=== PATIENT | female | born 1930 | race Caucasian/White ===

== ENCOUNTER 2017-01-08 20:51 | Inpatient (IN) | payer MEDICARE ==
--- NOTE | 2017-01-08 20:55 | C.PDOC ---
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 Denies fever or chills. Time Seen by Provider: 01/08/17 20:55 History Per: Patient History/Exam Limitations: no limitations Onset/Duration Of Symptoms: Mins Current Symptoms Are (Timing): Still Present Context: Other Severity: Moderate Pain Scale Rating Of: 4 Location Of Pain/Discomfort: Diffuse Radiation Of Pain To:: None Quality Of Discomfort: Dull Associated Symptoms: Vomiting (Coffee ground). denies: Fever, Chills Exacerbating Factors: None Alleviating Factors: None Recent travel outside of the [place]: No Additional History Per: Patient Abnormal Vaginal Bleeding: No Past Medical History Reviewed: Historical Data, Nursing Documentation, Vital Signs Vital Signs: Last Vital Signs Temp 97.1 F L 01/08/17 23:10 Pulse 100 H 01/08/17 23:10 Resp 20 01/08/17 23:10 BP 130/55 L 01/08/17 23:10 Pulse Ox 96 01/08/17 23:10 - Medical History PMH: Anxiety, Arthritis, CAD, Cardia Arrhythmia, Diabetes, HTN, Hypercholesterolemia, Osteoporosis Surgical History: - [facility] Procedures COLONOSCOPY (12/31/12) LEFT HEART CARDIAC CATH (08/31/13) LT HEART ANGIOCARDIOGRAM (08/31/13) Family History: States: Unknown Family Hx - Social History Hx Tobacco Use: No Hx Alcohol Use: No Hx Substance Use: No - Immunization History Hx Tetanus Toxoid Vaccination: No Hx Influenza Vaccination: No Hx Pneumococcal Vaccination: No Review Of Systems Constitutional: Negative for: Fever, Chills Eyes: Negative for: Vision Change ENT: Negative for: Throat Pain Cardiovascular: Negative for: Chest Pain Respiratory: Negative for: Shortness of Breath Gastrointestinal: Positive for: Vomiting (Coffee ground), Abdominal Pain Genitourinary: Negative for: Vaginal Bleeding Musculoskeletal: Negative for: Back Pain Skin: Positive for: Other (pale). Negative for: Rash, Lesions, Jaundice, Bruising Neurological: Negative for: Weakness Psych: Negative for: Anxiety Physical Exam - Physical Exam Appears: Non-toxic, No Acute Distress Skin: Warm, Dry, Pale Head: Normacephalic Eye(s): bilateral: Normal Inspection Oral Mucosa: Moist Neck: Trachea Midline, Supple Chest: Symmetrical, No Tenderness Cardiovascular: Rhythm Regular, No Murmur Respiratory: No Rales, No Rhonchi, No Wheezing Gastrointestinal/Abdominal: Soft, Tenderness (Mild, diffusely), No Guarding, No Rebound Rectal: Heme Positive, Other (black stool) Back: No CVA Tenderness Extremity: No Tenderness Extremity: Bilateral: Atraumatic, Normal Color And Temperature Neurological/Psych: Oriented x3, Normal Speech, Normal Cognition Gait: Steady ED Course And Treatment - Laboratory Results Result Diagrams: 01/08/17 21:17 01/08/17 21:17 ECG: Interpreted By Me, Viewed By Me ECG Rhythm: Sinus Rhythm (97), Nonspecific Changes O2 Sat by Pulse Oximetry: 98 Pulse Ox Interpretation: Normal Progress Note: EKG, blood work, and urinalysis ordered. Zofran, protonix, and IV fluids administered. Disposition Discussed With Dr.: Jeffery Jin Comment: accepted the pt on his service and took over the care at 11:12 PM Doctor Will See Patient In The: Hospital Counseled Patient/Family Regarding: Studies Performed, Diagnosis - Disposition Disposition: HOSPITALIZED Disposition Time: 20:55 Condition: FAIR - POA Present On Arrival: Poor Glycemic Control - Clinical Impression Clinical Impression: Abdominal pain, Hyperglycemia, Gastritis, Hematemesis - Scribe Statement The provider has reviewed the documentation as recorded by the Scribe Ray Russell All medical record entries made by the Scribe were at my direction and personally dictated by me. I have reviewed the chart and agree that the record accurately reflects my personal performance of the history, physical exam, medical decision making, and the department course for this patient. I have also personally directed, reviewed, and agree with the discharge instructions and disposition. Decision To Admit - Pt Status Changed To: Hospital Disposition Of: Observation - . Bed Request Type: Regular Admitting Physician: Jeffery Jin Patient Diagnosis: Abdominal pain, Hyperglycemia, Gastritis, Hematemesis
[2017-01-08 20:58] VITALS: BMI 26.0
[2017-01-08] MEDS ORDERED: Sodium Chloride 0.9% 1,000 ML IV ONE (20:58)
[2017-01-08] MEDS ORDERED: Sodium Chloride 0.9% 1,000 ML ONE (21:03)
[2017-01-08 21:24] LABS: BASO # 0.1 K/uL (0.0-0.2); EOS # 0.1 K/uL (0.0-0.7); EOS % 0.6 % (0.0-4.0); HEMOGLOBIN 9.3 g/dL (11.0-16.0); LYMPH # 1.2 K/uL (1.0-4.3); LYMPH % 9.1 % (20.0-40.0); MEAN CELL VOLUME 87.6 fL (81.0-99.0); MEAN CORPUSCULAR HEMOGLOBIN 28.5 pg (27.0-31.0); MEAN CORPUSCULAR HGB CONC 32.5 g/dL (33.0-37.0); MEAN PLATELET VOLUME 11.6 fL (7.2-11.7); MONO # 0.4 K/uL (0.0-0.8); MONO % 3.2 % (0.0-10.0); NEUT # 11.8 K/uL (1.8-7.0); NEUT % 86.1 % (50.0-75.0); PLATELET COUNT 175 K/uL (130-400); RBC 3.26 Mil/uL (3.80-5.20); RED CELL DISTRIBUTION WIDTH 13.2 % (11.5-14.5); WHITE BLOOD COUNT 13.7 K/uL (4.8-10.8)
[2017-01-08 21:31] LABS: ALBUMIN 3.2 g/dL (3.5-5.0)
[2017-01-08 21:34] LABS: ALB/GLOB RATIO 1.1 (1.0-2.1); AST/SGOT 15 U/L (14-36); GFR AFRICAN-AMERICAN > 60; GFR NON-AFRICAN AMERICAN 60
[2017-01-08 21:35] LABS: ALT/SGPT 14 U/L (9-52); BLOOD UREA NITROGEN 72 mg/dL (7-17); CALCIUM 9.4 mg/dl (8.6-10.4); INR 1.2; LIPASE 234 U/L (23-300); PROTHROMBIN TIME 12.9 SECONDS (9.7-12.2)
[2017-01-08 22:18] LABS: BANDS 1 % (0-2); LYMPHOCYTE 9 % (20-40); MONOCYTE 2 % (0-10); NEUTROPHIL 88 % (50-75); PLATELET ESTIMATE NORMAL (NORMAL); TOTAL CELLS COUNTED 100
[2017-01-08 22:29] LABS: SQUAMOUS EPITHIAL < 1 /hpf (0-5); URINE BILIRUBIN NEGATIVE (NEGATIVE); URINE CLARITY Clear (Clear); URINE COLOR Straw (YELLOW); URINE GLUCOSE (UA) 2+ mg/dL (Normal); URINE LEUKOCYTE ESTERASE NEG Leu/uL (Negative); URINE NITRATE NEGATIVE (NEGATIVE); URINE PROTEIN NEGATIVE (NEGATIVE); URINE UROBILINOGEN NORMAL mg/dL (0.2-1.0)
[2017-01-08 22:31] LABS: URINE BLOOD NEGATIVE (NEGATIVE)
[2017-01-09] MEDS: Sodium Chloride 0.45% 1,000 ML IV SCH (02:00)
[2017-01-09 04:38] LABS: MEAN CELL VOLUME 89.1 fL (81.0-99.0); MEAN CORPUSCULAR HEMOGLOBIN 28.3 pg (27.0-31.0); MEAN CORPUSCULAR HGB CONC 31.7 g/dL (33.0-37.0); RBC 2.5 Mil/uL (3.80-5.20); RED CELL DISTRIBUTION WIDTH 13.2 % (11.5-14.5); WHITE BLOOD COUNT 14.9 K/uL (4.8-10.8)
[2017-01-09 04:39] LABS: HEMOGLOBIN 7.1 g/dL (11.0-16.0)
[2017-01-09 04:41] LABS: ALBUMIN 2.7 g/dL (3.5-5.0)
[2017-01-09 04:43] LABS: GFR AFRICAN-AMERICAN > 60; GFR NON-AFRICAN AMERICAN 53
[2017-01-09 04:44] LABS: ALT/SGPT 21 U/L (9-52); AST/SGOT 13 U/L (14-36); BLOOD UREA NITROGEN 68 mg/dL (7-17)
[2017-01-09 04:45] LABS: CALCIUM 8.3 mg/dl (8.6-10.4)
[2017-01-09 04:46] LABS: ALB/GLOB RATIO 1.1 (1.0-2.1)
[2017-01-09] MEDS: (Novolin R) Insulin Human Regular 100 units/ml vial SC SCH ×4 (08:33→22:45)
[2017-01-09] MEDS ORDERED: (Novolin R) Insulin Human Regular 100 units/ml vial ONE (08:36)
[2017-01-09] MEDS ORDERED: HYDROCHLOROTHIAZID PO SCH (10:00)
[2017-01-09] MEDS ORDERED: TELMISARTAN PO SCH (10:00)
--- NOTE | 2017-01-09 15:10 | US ---
HISTORY: GI BLEED COMPARISON: CT abdomen and pelvis with contrast performed 05/13/16 TECHNIQUE: Sonographic evaluation of the right upper quadrant of the abdomen. FINDINGS: LIVER: Measures 13 cm in length and appears within normal limits of shape, size, and echotexture. No focal hepatic mass identified. The main portal vein appears patent with normal directional flow. No intrahepatic bile duct dilatation. GALLBLADDER: No gallstones. No gallbladder wall thickening or pericholecystic edema. Negative sonographic Dave's sign as assessed by the electronic wirer. COMMON BILE DUCT: Measures 4 mm. PANCREAS: Not well-visualized. RIGHT KIDNEY: Measures 8.7 x 4.1 x 4.2 cm in length. No obstructing calculus or hydronephrosis identified. AORTA: Limited visualization appears grossly unremarkable. IVC: Limited visualization appears grossly unremarkable. OTHER FINDINGS: None . IMPRESSION: Unremarkable right upper quadrant ultrasound as above.
--- NOTE | 2017-01-09 15:33 | RAD ---
PROCEDURE: Radiographs of the chest and abdomen (obstructive series) HISTORY: GI Bleed COMPARISON: No prior. TECHNIQUE: AP radiograph of the chest, with upright and supine radiographs of the abdomen. FINDINGS: CHEST: Lungs: Clear. Cardiovascular: Normal size heart. No pulmonary vascular congestion. Pleura: No pleural fluid. No pneumothorax. Other findings: None. ABDOMEN AND PELVIS: Bowel: Unremarkable bowel gas pattern. No evidence of mechanical obstruction. Free air: None. Bones: Unremarkable. Other findings: None. IMPRESSION: Unremarkable radiographs of chest and abdomen. No evidence of mechanical bowel obstruction.
--- NOTE | 2017-01-09 16:19 | CP.PCM.CON ---
History of Present Illness - History of Present Illness History of Present Illness: This is an 86 year old woman with coffee grounds emesis. Patient underwent colonoscopy 12/31/2012 which showed diverticulosis. She was in her usual state of health until the day of admission, when she noted sudden onset of nausea and vomiting. At the time, she had diffuse abdominal discomfort described as dullness; this has since resolved. She denies having heartburn, difficulty swallowing, loss of appetite, constipation, diarrhea, dark stools and bright red blood per rectum. She has gradually lost 30 pounds over the past two years. Review of Systems - Review of Systems All systems: reviewed and no additional remarkable complaints except - Constitutional Constitutional: absent: Chills, Fever - EENT Eyes: absent: Change in Vision Nose/Mouth/Throat: absent: Sore Throat - Cardiovascular Cardiovascular: absent: Chest Pain - Respiratory Respiratory: absent: Dyspnea - Gastrointestinal Gastrointestinal: Abdominal Pain. absent: Constipation, Diarrhea, Dysphagia, Heartburn, Hematochezia, Melena, Nausea, Vomiting - Reproductive: Female Reproductive:Female: absent: Abnormal Vaginal Bleeding - Musculoskeletal Musculoskeletal: absent: Back Pain Past Patient History - Infectious Disease Hx of Infectious Diseases: None - Past Medical History & Family History Past Medical History?: Yes - Past Social History Smoking Status: Never Smoked - CARDIAC Hx Cardia Arrhythmia: Yes Hx Hypercholesterolemia: Yes Hx Hypertension: Yes - PULMONARY Hx Respiratory Disorders: No - NEUROLOGICAL Hx Neurological Disorder: No - HEENT Hx HEENT Problems: No - RENAL Hx Chronic Kidney Disease: No - ENDOCRINE/METABOLIC Hx Endocrine Disorders: Yes Hx Diabetes Mellitus Type 1: Yes - HEMATOLOGICAL/ONCOLOGICAL Hx Blood Disorders: No - INTEGUMENTARY Hx Dermatological Problems: No - MUSCULOSKELETAL/RHEUMATOLOGICAL Hx Arthritis: Yes Hx Osteoporosis: Yes - GASTROINTESTINAL Hx Gastrointestinal Disorders: No - GENITOURINARY/GYNECOLOGICAL Hx Genitourinary Disorders: No - PSYCHIATRIC Hx Anxiety: Yes Hx Substance Use: No - SURGICAL HISTORY Hx Section: Yes Hx Orthopedic Surgery: Yes Other/Comment: Right ankle surgery. left shoulder surgery - ANESTHESIA Hx Anesthesia: Yes Hx Anesthesia Reactions: No Hx Malignant Hyperthermia: No Meds Allergies/Adverse Reactions: Allergies Allergy/AdvReac Type Severity Reaction Status Date / Time No Known Allergies Allergy Verified 01/08/17 20:57 - Medications Medications: Current Medications Carvedilol (Coreg) 6.25 mg PO BID [facility] Last Admin: 01/09/17 12:12 Dose: 6.25 mg Clopidogrel Bisulfate (Plavix) 1 mg PO DAILY [facility] Last Admin: 01/09/17 12:13 Dose: 1 mg Home Med (Telmisartan/Hydrochlorothiazid [Telmisartan-Hctz 80-25 Mg Tab]) 1 tab PO DAILY [facility] Sodium Chloride (Sodium Chloride 0.45%) 1,000 mls @ 75 mls/hr IV .[id number] [facility] Last Admin: 01/09/17 02:00 Dose: 75 mls/hr Acetaminophen (Ofirmev) 100 mls @ 100 mls/hr IV PRN PRN PRN Reason: Pain, moderate (4-7) Stop: 01/10/17 01:23 Last Admin: 01/09/17 02:14 Dose: 100 mls/hr Insulin Human Regular (Novolin R) 0 unit SC ACHS [facility] PRN Reason: Protocol Last Admin: 01/09/17 08:33 Dose: 6 unit Pantoprazole Sodium (Protonix Inj) 40 mg IVP DAILY [facility] Last Admin: 01/09/17 12:12 Dose: 40 mg Sitagliptin Phosphate (Januvia) 100 mg PO DAILY [facility] Last Admin: 01/09/17 12:12 Dose: 100 mg Physical Exam - Constitutional Appears: No Acute Distress - Head Exam Head Exam: ATRAUMATIC, NORMOCEPHALIC - Eye Exam Eye Exam: EOMI, PERRL - Neck Exam Neck exam: Negative for: Lymphadenopathy, Thyromegaly - Respiratory Exam Respiratory Exam: NORMAL BREATHING PATTERN. absent: Rales, Rhonchi, Wheezes - Cardiovascular Exam Cardiovascular Exam: REGULAR RHYTHM, +S1, +S2. absent: Gallop, Rubs, Systolic Murmur - GI/Abdominal Exam GI & Abdominal Exam: Normal Bowel Sounds, Soft. absent: Mass, Organomegaly, Tenderness - Rectal Exam Rectal Exam: Deferred - Extremities Exam Extremities exam: Negative for: calf tenderness, pedal edema Results - Vital Signs Recent Vital Signs: Last Vital Signs Temp 98.7 F 01/09/17 08:45 Pulse 102 H 01/09/17 08:45 Resp 18 01/09/17 08:45 BP 137/43 L 01/09/17 08:45 Pulse Ox 100 01/09/17 08:45 - Labs Result Diagrams: 01/09/17 04:35 01/09/17 04:35 Labs: Laboratory Results - last 24 hr 01/09/17 01/09/17 01/09/17 04:35 04:35 06:20 WBC 14.9 H RBC 2.50 L Hgb 7.1 L D Hct 22.3 L MCV 89.1 MCH 28.3 MCHC 31.7 L RDW 13.2 Plt Count 154 MPV 11.0 Sodium 137 Potassium 4.1 Chloride 107 Carbon Dioxide 21 L Anion Gap 13 BUN 68 H Creatinine 1.0 Est GFR ( Amer) > 60 Est GFR (Non-Af Amer) 53 POC Glucose (mg/dL) Random Glucose 241 H Calcium 8.3 L Total Bilirubin 0.3 AST 13 L ALT 21 Alkaline Phosphatase 59 Total Protein 5.1 L Albumin 2.7 L Globulin 2.4 Albumin/Globulin Ratio 1.1 Blood Type O POSITIVE Antibody Screen Negative 01/09/17 01/09/17 08:32 12:11 WBC RBC Hgb Hct MCV MCH MCHC RDW Plt Count MPV Sodium Potassium Chloride Carbon Dioxide Anion Gap BUN Creatinine Est GFR ( Amer) Est GFR (Non-Af Amer) POC Glucose (mg/dL) 301 H 154 H Random Glucose Calcium Total Bilirubin AST ALT Alkaline Phosphatase Total Protein Albumin Globulin Albumin/Globulin Ratio Blood Type Antibody Screen Assessment & Plan (1) Hematemesis Assessment and Plan: Patient has upper GI bleed manifesting as coffee-grounds emesis. She is hemodynamically stable. The HGB dropped from 9.3 to 7.1, and she was transfused. Since she has been taking Advil, we will perform EGD to rule out peptic ulcer disease. Status: Acute
--- NOTE | 2017-01-09 19:43 | CP.PCM.HP ---
Past Patient History - Infectious Disease Hx of Infectious Diseases: None - Past Medical History & Family History Past Medical History?: Yes - Past Social History Smoking Status: Never Smoked - CARDIAC Hx Cardia Arrhythmia: Yes Hx Hypercholesterolemia: Yes Hx Hypertension: Yes - PULMONARY Hx Respiratory Disorders: No - NEUROLOGICAL Hx Neurological Disorder: No - HEENT Hx HEENT Problems: No - RENAL Hx Chronic Kidney Disease: No - ENDOCRINE/METABOLIC Hx Endocrine Disorders: Yes Hx Diabetes Mellitus Type 1: Yes - HEMATOLOGICAL/ONCOLOGICAL Hx Blood Disorders: No - INTEGUMENTARY Hx Dermatological Problems: No - MUSCULOSKELETAL/RHEUMATOLOGICAL Hx Arthritis: Yes Hx Osteoporosis: Yes - GASTROINTESTINAL Hx Gastrointestinal Disorders: No - GENITOURINARY/GYNECOLOGICAL Hx Genitourinary Disorders: No - PSYCHIATRIC Hx Anxiety: Yes Hx Substance Use: No - SURGICAL HISTORY Hx Section: Yes Hx Orthopedic Surgery: Yes Other/Comment: Right ankle surgery. left shoulder surgery - ANESTHESIA Hx Anesthesia: Yes Hx Anesthesia Reactions: No Hx Malignant Hyperthermia: No Meds Allergies/Adverse Reactions: Allergies Allergy/AdvReac Type Severity Reaction Status Date / Time No Known Allergies Allergy Verified 01/08/17 20:57 Results - Vital Signs Recent Vital Signs: Last Vital Signs Temp 97.6 F 01/09/17 15:39 Pulse 100 H 01/09/17 15:39 Resp 20 01/09/17 15:39 BP 117/63 01/09/17 15:39 Pulse Ox 93 L 01/09/17 15:39 - Labs Result Diagrams: 01/09/17 04:35 01/09/17 04:35 Labs: Laboratory Results - last 24 hr 01/09/17 01/09/17 01/09/17 04:35 04:35 06:20 WBC 14.9 H RBC 2.50 L Hgb 7.1 L D Hct 22.3 L MCV 89.1 MCH 28.3 MCHC 31.7 L RDW 13.2 Plt Count 154 MPV 11.0 Sodium 137 Potassium 4.1 Chloride 107 Carbon Dioxide 21 L Anion Gap 13 BUN 68 H Creatinine 1.0 Est GFR ( Amer) > 60 Est GFR (Non-Af Amer) 53 POC Glucose (mg/dL) Random Glucose 241 H Calcium 8.3 L Total Bilirubin 0.3 AST 13 L ALT 21 Alkaline Phosphatase 59 Total Protein 5.1 L Albumin 2.7 L Globulin 2.4 Albumin/Globulin Ratio 1.1 Blood Type O POSITIVE Antibody Screen Negative 01/09/17 01/09/17 01/09/17 08:32 12:11 16:31 WBC RBC Hgb Hct MCV MCH MCHC RDW Plt Count MPV Sodium Potassium Chloride Carbon Dioxide Anion Gap BUN Creatinine Est GFR ( Amer) Est GFR (Non-Af Amer) POC Glucose (mg/dL) 301 H 154 H 252 H Random Glucose Calcium Total Bilirubin AST ALT Alkaline Phosphatase Total Protein Albumin Globulin Albumin/Globulin Ratio Blood Type Antibody Screen
[2017-01-09 21:11] LABS: BASO # 0.1 K/uL (0.0-0.2); BASO % 0.7 % (0.0-2.0); EOS % 0.3 % (0.0-4.0); HEMOGLOBIN 7.6 g/dL (11.0-16.0); LYMPH # 1.4 K/uL (1.0-4.3); LYMPH % 8.8 % (20.0-40.0); MEAN CORPUSCULAR HEMOGLOBIN 28.1 pg (27.0-31.0); MEAN CORPUSCULAR HGB CONC 32.3 g/dL (33.0-37.0); MEAN PLATELET VOLUME 11.6 fL (7.2-11.7); MONO # 1.1 K/uL (0.0-0.8); NEUT # 13.4 K/uL (1.8-7.0); NEUT % 83.2 % (50.0-75.0); PLATELET COUNT 155 K/uL (130-400); RBC 2.69 Mil/uL (3.80-5.20); RED CELL DISTRIBUTION WIDTH 13.7 % (11.5-14.5); WHITE BLOOD COUNT 16.1 K/uL (4.8-10.8)
--- NOTE | 2017-01-09 21:30 | CARD ---
APPROVED REPORT EKG Measurement Heart [id number] <Conclusion> Normal sinus rhythm Nonspecific T wave abnormality Abnormal ECG
[2017-01-09 23:09] LABS: PLATELET ESTIMATE NORMAL (NORMAL)
[2017-01-09 23:15] LABS: BANDS 6 % (0-2); LYMPHOCYTE 9 % (20-40); MONOCYTE 7 % (0-10); NEUTROPHIL 78 % (50-75); TOTAL CELLS COUNTED 100
[2017-01-09 23:16] LABS: ANISOCYTOSIS SLIGHT; HYPERSEGMENTATION PRESENT; HYPOCHROMIC SLIGHT; LARGE PLATELETS PRESENT; POIKILOCYTOSIS SLIGHT; SMUDGE CELLS PRESENT
[2017-01-10 08:16] LABS: BASO # 0.1 K/uL (0.0-0.2); BASO % 0.7 % (0.0-2.0); EOS # 0.2 K/uL (0.0-0.7); EOS % 1.3 % (0.0-4.0); HEMOGLOBIN 8.8 g/dL (11.0-16.0); LYMPH # 2.4 K/uL (1.0-4.3); LYMPH % 16.8 % (20.0-40.0); MEAN CORPUSCULAR HEMOGLOBIN 28.6 pg (27.0-31.0); MEAN CORPUSCULAR HGB CONC 32.9 g/dL (33.0-37.0); MEAN PLATELET VOLUME 10.6 fL (7.2-11.7); MONO % 7.4 % (0.0-10.0); NEUT # 10.4 K/uL (1.8-7.0); NEUT % 73.8 % (50.0-75.0); RBC 3.08 Mil/uL (3.80-5.20)
[2017-01-10 08:21] LABS: ALBUMIN 2.9 g/dL (3.5-5.0)
[2017-01-10 08:24] LABS: ALB/GLOB RATIO 1.1 (1.0-2.1); ALT/SGPT 17 U/L (9-52); AST/SGOT 19 U/L (14-36); BLOOD UREA NITROGEN 35 mg/dL (7-17); GFR AFRICAN-AMERICAN > 60; GFR NON-AFRICAN AMERICAN 60
[2017-01-10 08:25] LABS: CALCIUM 8.5 mg/dl (8.6-10.4)
[2017-01-10] MEDS: (Novolin R) Insulin Human Regular 100 units/ml vial SC SCH ×4 (09:46→22:31)
[2017-01-10] MEDS ORDERED: Potassium Chloride 20 mEq ER Tab PO STA (10:05)
[2017-01-10] MEDS ORDERED: Propofol 10 mg/ml Inj (20 ML) ONE (12:29)
[2017-01-10] MEDS ORDERED: Etomidate 20 mg/10ml Inj IV ONE ×2 (13:05→13:06)
[2017-01-10 13:29] VITALS: RESP 20
--- NOTE | 2017-01-10 15:36 | CP.PCM.PN ---
Subjective - Date & Time of Evaluation Date of Evaluation: 01/10/17 Time of Evaluation: 09:40 - Subjective Subjective: Clinically same Objective - Vital Signs/Intake and Output Vital Signs (last 24 hours): Temp Pulse Resp BP Pulse Ox 97.8 F 93 H 20 139/67 93 L 01/10/17 12:52 01/10/17 13:22 01/10/17 13:22 01/10/17 13:22 01/10/17 13:22 Intake and Output: 01/10/17 01/10/17 06:59 18:59 Intake Total 325 200 Balance 325 200 - Medications Medications: Current Medications Carvedilol (Coreg) 6.25 mg PO BID [facility] Last Admin: 01/10/17 11:10 Dose: 6.25 mg Clopidogrel Bisulfate (Plavix) 75 mg PO DAILY [facility] Last Admin: 01/10/17 11:11 Dose: Not Given Famotidine (Pepcid) 20 mg PO BID [facility] Hydrochlorothiazide (Hydrodiuril) 25 mg PO DAILY [facility] Last Admin: 01/10/17 11:10 Dose: 25 mg Sodium Chloride (Sodium Chloride 0.45%) 1,000 mls @ 75 mls/hr IV .[id number] [facility] Last Admin: 01/09/17 02:00 Dose: 75 mls/hr Insulin Human Regular (Novolin R) 0 unit SC ACHS [facility] PRN Reason: Protocol Last Admin: 01/10/17 09:46 Dose: Not Given Losartan Potassium (Cozaar) 100 mg PO DAILY [facility] Last Admin: 01/10/17 11:10 Dose: 100 mg Morphine Sulfate (Morphine) 2 mg IVP Q6H PRN PRN Reason: Pain, moderate (4-7) Last Admin: 01/10/17 11:11 Dose: 2 mg Sitagliptin Phosphate (Januvia) 100 mg PO DAILY [facility] Last Admin: 01/10/17 11:11 Dose: Not Given - Labs Labs: 01/10/17 08:04 01/10/17 08:04 PT 12.9 SECONDS (9.7-12.2) H 01/08/17 21:17 INR 1.2 01/08/17 21:17 APTT 27 SECONDS (21-34) 01/08/17 21:17 Assessment and Plan - Assessment and Plan (Free Text) Plan: Patient vomited a hematemesis status post endoscopic gastritis esophagitis Discussed with the daughter Continue Protonix Hold off Lovenox We will hold the Plavix We will do the CBC tomorrow Patient received Zofran for nausea vomiting today we will hold the discharge
[2017-01-10] MEDS: Sodium Chloride 0.45% 1,000 ML IV SCH ×2 (17:45→21:55)
[2017-01-11 08:44] LABS: BASO # 0.1 K/uL (0.0-0.2); BASO % 0.9 % (0.0-2.0); EOS # 0.3 K/uL (0.0-0.7); EOS % 2.8 % (0.0-4.0); HEMOGLOBIN 9.1 g/dL (11.0-16.0); LYMPH % 17.3 % (20.0-40.0); MEAN CELL VOLUME 87.5 fL (81.0-99.0); MEAN CORPUSCULAR HEMOGLOBIN 29.4 pg (27.0-31.0); MEAN CORPUSCULAR HGB CONC 33.6 g/dL (33.0-37.0); MEAN PLATELET VOLUME 10.5 fL (7.2-11.7); MONO % 9.1 % (0.0-10.0); NEUT # 7.9 K/uL (1.8-7.0); NEUT % 69.9 % (50.0-75.0); NRBC % 0.1 % (0.0-2.0); RBC 3.09 Mil/uL (3.80-5.20); RED CELL DISTRIBUTION WIDTH 13.8 % (11.5-14.5); WHITE BLOOD COUNT 11.3 K/uL (4.8-10.8)
[2017-01-11] MEDS: (Novolin R) Insulin Human Regular 100 units/ml vial SC SCH ×4 (09:08→22:00)
[2017-01-11 09:12] LABS: ALBUMIN 2.9 g/dL (3.5-5.0)
[2017-01-11 09:14] LABS: GFR AFRICAN-AMERICAN > 60; GFR NON-AFRICAN AMERICAN > 60
[2017-01-11 09:15] LABS: ALT/SGPT 16 U/L (9-52); AST/SGOT 24 U/L (14-36); BLOOD UREA NITROGEN 20 mg/dL (7-17)
[2017-01-11 09:16] LABS: CALCIUM 8.5 mg/dl (8.6-10.4)
[2017-01-11] MEDS ORDERED: Potassium Chloride 20 mEq ER Tab PO STA (11:21)
[2017-01-11 14:18] LABS: BASO # 0.1 K/uL (0.0-0.2); BASO % 0.6 % (0.0-2.0); EOS # 0.2 K/uL (0.0-0.7); HEMOGLOBIN 9.4 g/dL (11.0-16.0); LYMPH # 1.5 K/uL (1.0-4.3); LYMPH % 12.6 % (20.0-40.0); MEAN CELL VOLUME 88.6 fL (81.0-99.0); MEAN CORPUSCULAR HEMOGLOBIN 28.9 pg (27.0-31.0); MEAN CORPUSCULAR HGB CONC 32.7 g/dL (33.0-37.0); MEAN PLATELET VOLUME 10.7 fL (7.2-11.7); MONO # 0.8 K/uL (0.0-0.8); MONO % 6.8 % (0.0-10.0); NEUT # 9.1 K/uL (1.8-7.0); RBC 3.26 Mil/uL (3.80-5.20); RED CELL DISTRIBUTION WIDTH 14.2 % (11.5-14.5); WHITE BLOOD COUNT 11.6 K/uL (4.8-10.8)
[2017-01-11 14:26] LABS: ALBUMIN 3.2 g/dL (3.5-5.0)
[2017-01-11 14:29] LABS: ALB/GLOB RATIO 1.1 (1.0-2.1); AST/SGOT 24 U/L (14-36); GFR AFRICAN-AMERICAN > 60; GFR NON-AFRICAN AMERICAN 60
[2017-01-11 14:30] LABS: ALT/SGPT 24 U/L (9-52); BLOOD UREA NITROGEN 21 mg/dL (7-17); CALCIUM 8.6 mg/dl (8.6-10.4)
--- NOTE | 2017-01-11 18:08 | CP.PCM.PN ---
Subjective - Date & Time of Evaluation Date of Evaluation: 01/11/17 Time of Evaluation: 09:40 - Subjective Subjective: clinically same Objective - Vital Signs/Intake and Output Vital Signs (last 24 hours): Temp Pulse Resp BP Pulse Ox 98.8 F 76 20 116/70 95 01/11/17 15:00 01/11/17 15:00 01/11/17 15:00 01/11/17 15:00 01/11/17 15:00 Intake and Output: 01/11/17 01/11/17 06:59 18:59 Intake Total 900 Balance 900 - Medications Medications: Current Medications Carvedilol (Coreg) 6.25 mg PO BID [facility] Last Admin: 01/11/17 12:28 Dose: 6.25 mg Famotidine (Pepcid) 20 mg PO BID [facility] Last Admin: 01/11/17 12:29 Dose: 20 mg Hydrochlorothiazide (Hydrodiuril) 25 mg PO DAILY [facility] Last Admin: 01/11/17 12:28 Dose: 25 mg Sodium Chloride (Sodium Chloride 0.45%) 1,000 mls @ 75 mls/hr IV .[id number] [facility] Last Admin: 01/10/17 21:55 Dose: 75 mls/hr Insulin Human Regular (Novolin R) 0 unit SC ACHS [facility] PRN Reason: Protocol Last Admin: 01/11/17 13:41 Dose: 3 unit Losartan Potassium (Cozaar) 100 mg PO DAILY [facility] Last Admin: 01/11/17 12:32 Dose: 100 mg Morphine Sulfate (Morphine) 2 mg IVP Q6H PRN PRN Reason: Pain, moderate (4-7) Last Admin: 01/11/17 13:40 Dose: 2 mg Sitagliptin Phosphate (Januvia) 100 mg PO DAILY [facility] Last Admin: 01/11/17 12:29 Dose: 100 mg - Labs Labs: 01/11/17 14:11 01/11/17 14:11 PT 12.9 SECONDS (9.7-12.2) H 01/08/17 21:17 INR 1.2 01/08/17 21:17 APTT 27 SECONDS (21-34) 01/08/17 21:17 - Constitutional Appears: Well - Head Exam Head Exam: ATRAUMATIC, NORMAL INSPECTION, NORMOCEPHALIC - Eye Exam Eye Exam: EOMI, Normal appearance, PERRL Pupil Exam: NORMAL ACCOMODATION, PERRL - ENT Exam ENT Exam: Mucous Membranes Moist, Normal Exam - Neck Exam Neck Exam: Full ROM, Normal Inspection. absent: Lymphadenopathy - Respiratory Exam Respiratory Exam: Decreased Breath Sounds - Cardiovascular Exam Cardiovascular Exam: REGULAR RHYTHM, +S1, +S2 - GI/Abdominal Exam GI & Abdominal Exam: Soft, Diminished Bowel Sounds - Rectal Exam Rectal Exam: Deferred
[2017-01-11] MEDS: Sodium Chloride 0.45% 1,000 ML IV SCH (22:12)
[2017-01-12 03:05] VITALS: BP 111/68; PULSE 75; TEMP 98.3; O2SAT 94
[2017-01-12] MEDS: (Novolin R) Insulin Human Regular 100 units/ml vial SC SCH (09:42)
[2017-01-12 10:12] LABS: BASO # 0.1 K/uL (0.0-0.2); BASO % 0.6 % (0.0-2.0); EOS # 0.5 K/uL (0.0-0.7); EOS % 4.8 % (0.0-4.0); HEMOGLOBIN 9.7 g/dL (11.0-16.0); LYMPH # 1.7 K/uL (1.0-4.3); LYMPH % 16.4 % (20.0-40.0); MEAN CELL VOLUME 89.2 fL (81.0-99.0); MEAN CORPUSCULAR HEMOGLOBIN 29.8 pg (27.0-31.0); MEAN CORPUSCULAR HGB CONC 33.4 g/dL (33.0-37.0); MEAN PLATELET VOLUME 10.6 fL (7.2-11.7); MONO # 0.9 K/uL (0.0-0.8); NEUT # 7.2 K/uL (1.8-7.0); NEUT % 69.2 % (50.0-75.0); RBC 3.26 Mil/uL (3.80-5.20); RED CELL DISTRIBUTION WIDTH 14.1 % (11.5-14.5); WHITE BLOOD COUNT 10.4 K/uL (4.8-10.8)
[2017-01-12 10:26] LABS: ALBUMIN 3.1 g/dL (3.5-5.0)
[2017-01-12 10:29] LABS: ALB/GLOB RATIO 1.1 (1.0-2.1); AST/SGOT 26 U/L (14-36); BLOOD UREA NITROGEN 17 mg/dL (7-17); GFR AFRICAN-AMERICAN > 60; GFR NON-AFRICAN AMERICAN 60
[2017-01-12 10:30] LABS: ALT/SGPT 18 U/L (9-52); CALCIUM 8.8 mg/dl (8.6-10.4)
--- NOTE | 2017-01-12 14:25 | CP.PCM.PN ---
Subjective - Date & Time of Evaluation Date of Evaluation: 01/12/17 Time of Evaluation: 09:40 - Subjective Subjective: clinically same Objective - Vital Signs/Intake and Output Vital Signs (last 24 hours): Temp Pulse Resp BP Pulse Ox 98.3 F 75 20 111/68 94 L 01/12/17 00:00 01/12/17 00:00 01/12/17 00:00 01/12/17 00:00 01/12/17 00:00 - Medications Medications: Current Medications Carvedilol (Coreg) 6.25 mg PO BID [facility] Last Admin: 01/12/17 09:49 Dose: 6.25 mg Famotidine (Pepcid) 20 mg PO BID [facility] Last Admin: 01/11/17 18:39 Dose: 20 mg Hydrochlorothiazide (Hydrodiuril) 25 mg PO DAILY [facility] Last Admin: 01/12/17 09:49 Dose: 25 mg Insulin Human Regular (Novolin R) 0 unit SC ACHS [facility] PRN Reason: Protocol Last Admin: 01/12/17 09:42 Dose: Not Given Losartan Potassium (Cozaar) 100 mg PO DAILY [facility] Last Admin: 01/12/17 09:49 Dose: 100 mg Morphine Sulfate (Morphine) 2 mg IVP Q6H PRN PRN Reason: Pain, moderate (4-7) Last Admin: 01/11/17 13:40 Dose: 2 mg Sitagliptin Phosphate (Januvia) 100 mg PO DAILY [facility] Last Admin: 01/12/17 09:49 Dose: 100 mg - Labs Labs: 01/12/17 09:52 01/12/17 09:52 PT 12.9 SECONDS (9.7-12.2) H 01/08/17 21:17 INR 1.2 01/08/17 21:17 APTT 27 SECONDS (21-34) 01/08/17 21:17 - Constitutional Appears: Well - Head Exam Head Exam: ATRAUMATIC, NORMAL INSPECTION, NORMOCEPHALIC - Eye Exam Eye Exam: EOMI, Normal appearance, PERRL Pupil Exam: NORMAL ACCOMODATION, PERRL - ENT Exam ENT Exam: Mucous Membranes Moist, Normal Exam - Neck Exam Neck Exam: Full ROM, Normal Inspection. absent: Lymphadenopathy - Respiratory Exam Respiratory Exam: Decreased Breath Sounds - Cardiovascular Exam Cardiovascular Exam: REGULAR RHYTHM, +S1, +S2 - GI/Abdominal Exam GI & Abdominal Exam: Soft, Diminished Bowel Sounds - Rectal Exam Rectal Exam: Deferred
--- NOTE | 2017-01-16 16:02 | PQF GENQUE ---
This form is a permanent part of the medical record Clarification of your documentation is requested to better reflect the severity of illness and intensity of treatment of your patient. PLEASE, CLARIFY ETIOLOGY OF HEMATEMESIS PLEASE, CLARIFY TYPE OF ANEMIA ( ACUTE BLOOD LOSS / CHRONIC BLOOD LOSS/ OTHER) Indicators present [X] Specify: [ VOMITING COFFEE GROUND, HEMATEMESIS] [X] Specify: [ LOW HGB] [X] Specify: [ GASTRITIS, SQUIRES'S ESOPHAGUS, ACUTE ESOPHAGITIS , GASTRIC POLYP? HIATAL HERNIA] [X] Specify: [ IDDM UNCONTROLLED, DIVERTICULOSIS,] Location in the medical record that reflects the above clinical findings: [ ED , H&P, P.NOTES] Treatment Provided: [ BLOOD TRANSFUSION, EGD WITH X BIOPSIES] PHYSICIAN'S RESPONSE Based on your medical judgment of the clinical indicators outlined above please clarify the following: [] Practitioner response [] If unable to determine, please check the box, sign and date. Present On Admission (POA) Indicator: [] Present at the time of admission [] Not present at the time of admission [] Clinically Undetermined In responding to this query, please exercise your independent professional judgment. The fact that a question is asked does not imply that any particular answer is desired or expected. Thank you for your clarification on this documentation. If you have any questions please call:[ [phone]] * Thank you, [ Jen Gallo, CCS, TRANSPORT DRIVER] sliver handler DAVID
== END 2017-01-12 14:52 | disposition home or self-care (01) | DRG 391 ==
LOC: C.ER 20:51 → C.9E 23:13 → C.5T 01-09 09:17 → OBSVTOIN 01-10 17:06
PROVIDERS: ADMIT Internal Medicine Nephrology; ATTEND Internal Medicine Nephrology
PROC: 30233N1 Transfusion of Nonautologous Red Blood Cells into Peripheral Vein, Percutaneous Approach (ICD-10-PCS; 2017-01-09)
PROC: 0DB78ZX Excision of Stomach, Pylorus, Via Natural or Artificial Opening Endoscopic, Diagnostic (ICD-10-PCS; 2017-01-10)
PROC: 0DB68ZX Excision of Stomach, Via Natural or Artificial Opening Endoscopic, Diagnostic (ICD-10-PCS; 2017-01-10)
PROC: 0DB58ZX Excision of Esophagus, Via Natural or Artificial Opening Endoscopic, Diagnostic (ICD-10-PCS; principal; 2017-01-10 12:35)
DX: K22.8 Other specified diseases of esophagus (principal); K29.61 Other gastritis with bleeding; D62 Acute posthemorrhagic anemia; K22.70 Barrett's esophagus without dysplasia; K20.8 Other esophagitis; K44.9 Diaphragmatic hernia without obstruction or gangrene; I25.10 Atherosclerotic heart disease of native coronary artery without angina pectoris; E10.65 Type 1 diabetes mellitus with hyperglycemia; I10 Essential (primary) hypertension; E78.00 Pure hypercholesterolemia, unspecified; M81.0 Age-related osteoporosis without current pathological fracture; K57.90 Diverticulosis of intestine, part unspecified, without perforation or abscess without bleeding; K59.00 Constipation, unspecified; Z79.4 Long term (current) use of insulin

== ENCOUNTER 2017-06-30 11:29 | Emergency (ER) | payer MEDICARE ==
[2017-06-30 11:30] VITALS: BMI 26.0
[2017-06-30 11:36] VITALS: RESP 20
[2017-06-30 14:09] VITALS: BP 152/74; PULSE 83; TEMP 98.9; O2SAT 100
--- NOTE | 2017-06-30 14:24 | C.PDOC ---
History Of Present Illness 86 y/o female with multiple medical problems including arthritis, c/o left ankle pain and swelling x 4 days with unclear hx of possible twist or sprain. no fever or chills. pt having difficult time walking due to pain. Time Seen by Provider: 06/30/17 11:37 Chief Complaint (Nursing): Lower Extremity Problem/Injury History Per: Patient, Family History/Exam Limitations: no limitations Onset/Duration Of Symptoms: Days (4) Current Symptoms Are (Timing): Worse Severity: Moderate Recent travel outside of the [place]: No Past Medical History Reviewed: Historical Data, Nursing Documentation, Vital Signs Vital Signs: Last Vital Signs Temp 98.9 F 06/30/17 14:06 Pulse 83 06/30/17 14:06 Resp 20 06/30/17 14:06 BP 152/74 H 06/30/17 14:06 Pulse Ox 100 06/30/17 16:27 - Medical History PMH: Anxiety, Arthritis, CAD, Cardia Arrhythmia, Diabetes, HTN, Hypercholesterolemia, Osteoporosis Denies: Chronic Kidney Disease Surgical History: - [facility] Procedures COLONOSCOPY (12/31/12) EXCISION OF ESOPHAGUS, ENDO, DIAGN (01/10/17) EXCISION OF STOMACH, ENDO, DIAGN (01/10/17) EXCISION OF STOMACH, PYLORUS, ENDO, DIAGN (01/10/17) LEFT HEART CARDIAC CATH (08/31/13) LT HEART ANGIOCARDIOGRAM (08/31/13) TRANSFUSE NONAUT RED BLOOD CELLS IN PERIPH VEIN, PERC (01/10/17) Family History: States: Unknown Family Hx - Social History Hx Tobacco Use: No Hx Alcohol Use: No Hx Substance Use: No - Immunization History Hx Tetanus Toxoid Vaccination: No Hx Influenza Vaccination: No Hx Pneumococcal Vaccination: No Review Of Systems Constitutional: Negative for: Fever, Chills Musculoskeletal: Positive for: Foot Pain (ankle left) Skin: Negative for: Lesions, Bruising Neurological: Negative for: Weakness, Numbness Physical Exam - Physical Exam Appears: Non-toxic, No Acute Distress Skin: Normal Color, Warm, Dry Head: Atraumatic, Normacephalic Extremity: Other (left ankle with swelling and tenderness to distal lateral malleolus, from, no warmth/erythema) Pulses: Left Dorsalis Pedis: Normal, Right Dorsalis Pedis: Normal Neurological/Psych: Oriented x3, Normal Speech, Normal Cognition, Normal Motor, Normal Sensation ED Course And Treatment O2 Sat by Pulse Oximetry: 100 Pulse Ox Interpretation: Normal - Other Rad ankle X-Ray: Read By Radiologist Interpretation: IMPRESSION: No acute fracture or dislocation. 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 Medical Decision Making Medical Decision Making: Please take Tylenol for your ankle pain. Follow up with the arthritis specialist as scheduled. Cold compresses to swollen area several times a day. Disposition Counseled Patient/Family Regarding: Studies Performed, Diagnosis, Need For Followup, Rx Given - Disposition Referrals: Jeffery Jin MD [Staff Provider] - Disposition: HOME/ ROUTINE Disposition Time: 14:23 Condition: STABLE Additional Instructions: Please take Tylenol for pain. Wear Alfredo bandage during daytime for comfort. Cold compress to swollen area several times a day. Follow up with arthriitis specialist as scheduled. Prescriptions: Acetaminophen [Tylenol 325mg tab] 650 mg PO Q6 #30 tab Instructions: Arthritis (ED) Forms: Gen Discharge Inst Dutch, [facility] (Dutch) Print Language: KOSOVAN - Clinical Impression Clinical Impression: Arthritis, Joint swelling
--- NOTE | 2017-06-30 16:20 | RAD ---
PROCEDURE: Left Ankle Radiographs. HISTORY: pain to lateral malleolus, ?injury, hx arthritis COMPARISON: None FINDINGS: BONES: Bone alignment and mineralization are normal. There is no acute displaced fracture or bone destruction. There is a large plantar calcaneal spur. There is a dorsal calcaneal enthesophyte. JOINTS: There is mild degenerative osteoarthrosis in the tibiotalar joint. Ankle mortise maintained. Talar dome intact SOFT TISSUES: Normal. OTHER FINDINGS: None. IMPRESSION: No acute fracture or dislocation. 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
== END 2017-06-30 14:29 | disposition home or self-care (01) ==
LOC: C.ER 11:29
DX: M13.872 Other specified arthritis, left ankle and foot (principal)

== ENCOUNTER 2018-11-04 10:03 | Inpatient (IN) | payer MEDICARE ==
[2018-11-04 11:04] LABS: BASO # 0.1 K/uL (0.0-0.2); BASO % 0.8 % (0.0-2.0); EOS # 0.6 K/uL (0.0-0.7); EOS % 5.8 % (0.0-4.0); HEMOGLOBIN 10.6 g/dL (11.0-16.0); LYMPH # 0.7 K/uL (1.0-4.3); LYMPH % 6.9 % (20.0-40.0); MEAN CORPUSCULAR HEMOGLOBIN 30.8 pg (27.0-31.0); MEAN CORPUSCULAR HGB CONC 33.2 g/dL (33.0-37.0); MONO # 0.6 K/uL (0.0-0.8); MONO % 5.9 % (0.0-10.0); NEUT # 8.7 K/uL (1.8-7.0); NEUT % 80.6 % (50.0-75.0); PLATELET COUNT 275 K/uL (130-400); RBC 3.44 Mil/uL (3.80-5.20); RED CELL DISTRIBUTION WIDTH 13.7 % (11.5-14.5); WHITE BLOOD COUNT 10.8 K/uL (4.8-10.8)
[2018-11-04 11:05] LABS: MEAN CELL VOLUME 92.8 fL (81.0-99.0)
[2018-11-04] MEDS ORDERED: Sodium Chloride 0.9% 500 ML IV ONE ×3 (11:14→11:43)
[2018-11-04 11:16] LABS: ALB/GLOB RATIO 1.4 (1.0-2.1); ALBUMIN 3.9 g/dL (3.5-5.0); ALT/SGPT 6 U/L (9-52); AST/SGOT 18 U/L (14-36); BLOOD UREA NITROGEN 56 mg/dL (7-17); CALCIUM 10.1 mg/dl (8.6-10.4); GFR NON-AFRICAN AMERICAN 59; LIPASE 252 U/L (23-300)
[2018-11-04] MEDS ORDERED: Pantoprazole 80 MG in Sodium Chloride 0.9% 100 ML IV STA (11:28)
--- NOTE | 2018-11-04 11:28 | C.PDOC ---
History Of Present Illness 88 y/o female brought to the ER by BLS complaining of vomiting and LLQ abdominal pain which began in the morning. Patient states that the pain as constant,dull, and cramping.Patient reports that she also had 1 vomiting episode when she vomited fresh blood in the morning.She notes that she has hx of GI bleed in 2017. Denies having fever,chills, CP and SOB. Time Seen by Provider: 11/04/18 10:31 Chief Complaint (Nursing): GI Problem History Per: Patient History/Exam Limitations: no limitations Onset/Duration Of Symptoms: Hrs Current Symptoms Are (Timing): Still Present Severity: Moderate Past Medical History Reviewed: Historical Data, Nursing Documentation, Vital Signs Vital Signs: Last Vital Signs Temp Pulse 110 H 11/04/18 10:13 Resp 20 11/04/18 10:13 BP 154/71 H 11/04/18 10:13 Pulse Ox 95 11/04/18 10:13 Primary Care Provider: Jeffery Jin - Medical History PMH: Anxiety, Arthritis, CAD, Cardia Arrhythmia, Diabetes, HTN, Hypercholesterolemia, Osteoporosis Denies: Chronic Kidney Disease Surgical History: - [facility] Procedures COLONOSCOPY (12/31/12) EXCISION OF ESOPHAGUS, ENDO, DIAGN (01/10/17) EXCISION OF STOMACH, ENDO, DIAGN (01/10/17) EXCISION OF STOMACH, PYLORUS, ENDO, DIAGN (01/10/17) LEFT HEART CARDIAC CATH (08/31/13) LT HEART ANGIOCARDIOGRAM (08/31/13) TRANSFUSE NONAUT RED BLOOD CELLS IN PERIPH VEIN, PERC (01/10/17) Family History: States: No Known Family Hx - Social History Hx Tobacco Use: No Hx Alcohol Use: No Hx Substance Use: No - Immunization History Hx Tetanus Toxoid Vaccination: No Hx Influenza Vaccination: No Hx Pneumococcal Vaccination: No Review Of Systems Except As Marked, All Systems Reviewed And Found Negative. Constitutional: Negative for: Fever, Chills Cardiovascular: Negative for: Chest Pain Respiratory: Negative for: Shortness of Breath Gastrointestinal: Positive for: Vomiting, Abdominal Pain. Negative for: Nausea Physical Exam - Physical Exam Appears: No Acute Distress, Other (awake,alert,cooperative) Skin: Warm, Dry, Pale Head: Atraumatic, Normacephalic Eye(s): bilateral: EOMI, Conjunctiva Pale Nose: Normal Oral Mucosa: Other (pale oral mucosa) Neck: Supple Chest: Symmetrical Cardiovascular: Rhythm Regular Respiratory: Normal Breath Sounds, No Rales, No Rhonchi, No Wheezing Gastrointestinal/Abdominal: Soft, Tenderness (very mild LLQ tenderness), No Guarding, No Rebound Rectal: Heme Positive, Other (black stool) Back: No CVA Tenderness Neurological/Psych: Oriented x3, Normal Speech ED Course And Treatment - Laboratory Results Result Diagrams: 11/04/18 10:57 11/04/18 10:57 Lab Results: Total Bilirubin 0.2 mg/dL (0.2-1.3) 11/04/18 10:57 AST 18 U/L (14-36) 11/04/18 10:57 ALT 6 U/L (9-52) L D 11/04/18 10:57 Alkaline Phosphatase 53 U/L (38-126) 11/04/18 10:57 Total Protein 6.6 g/dL (6.3-8.3) 11/04/18 10:57 Albumin 3.9 g/dL (3.5-5.0) 11/04/18 10:57 Globulin 2.7 gm/dL (2.2-3.9) 11/04/18 10:57 Albumin/Globulin Ratio 1.4 (1.0-2.1) 11/04/18 10:57 Lipase 252 U/L (23-300) 11/04/18 10:57 ECG: Interpreted By Me, Viewed By Me ECG Rhythm: Sinus Tachycardia Interpretation Of ECG: Sinus Tachycardia with no ST elevations or depressions Rate From EC O2 Sat by Pulse Oximetry: 95 (RA) Pulse Ox Interpretation: Normal Medical Decision Making Medical Decision Making: Plan: --Labs --IV Fluids --Zofran IV --Pepcid IV --Protonix IV --Occult Stool Updates: 11:[address]J Jin[address] Dr.J Jin would like to have on consult. Patient will be admitted. 11:34 states he is going on vacation. was contacted and he accepted patient. On re-evaluation, patient is very dizzy and actively vomiting blood in ER. 12:53 Patient is continuing to vomit blood. evaluated patient and patient is having endosocopy. Case discussed with . Patient will be admitted to ICU. Disposition Discussed With Dr.: Gustavo Roberson - Disposition Disposition: HOSPITALIZED Disposition Time: 12:53 Condition: GUARDED - POA Present On Arrival: None - Clinical Impression Clinical Impression: GI bleed, Gastrointestinal hemorrhage - Scribe Statement The provider has reviewed the documentation as recorded by the Paul Jameson Ugo Provider Attestation: All medical record entries made by the Abrahamibnesha were at my direction and personall y dictated by me. I have reviewed the chart and agree that the record accurately reflects my personal performance of the history, physical exam, medical decision making, and the department course for this patient. I have also personally directed, reviewed, and agree with the discharge instructions and disposition. Decision To Admit - Pt Status Changed To: Hospital Disposition Of: Inpatient - Admit Certification Admit to Inpatient:: After my assessment, the patient will require h ospitalization for at least two midnights. This is because of the severity of symptoms shown, intensity of services needed, and/or the medical risk in this patient being treated as an outpatient. - InPatient: Physician Admission Certification:: active GI bleed - . Bed Request Type: ICU Admitting Physician: Jeffery Jin Patient Diagnosis: GI bleed, Gastrointestinal hemorrhage
[2018-11-04 11:43] LABS: ANISOCYTOSIS SLIGHT; BANDS 1 % (0-2); EOSINOPHIL 3 % (0-4); HYPOCHROMIC SLIGHT; LYMPHOCYTE 8 % (20-40); MONOCYTE 6 % (0-10); NEUTROPHIL 82 % (50-75); PLATELET ESTIMATE NORMAL (NORMAL); POIKILOCYTOSIS SLIGHT; TOTAL CELLS COUNTED 100
--- NOTE | 2018-11-04 11:59 | CP.PCM.CON ---
History of Present Illness - History of Present Illness History of Present Illness: PGY5 GI Consult Rosalinda Ramos is a 88F w/ hx of HTN, HL, DM who presents tot the ER with complaints of hematemsis and abd pain. Pt states that the hematemsis was sudden and started in the AM. initially it was a small amount then gradually worsened on the 2nd episode, She noted that she also started to experience abdominal pain in the LUQ and LLQ with 8 out of 10 pain. She describes it as sharp and non- radiating. She denies any rectal bleeding, but ER noted possible melena in rectal exam. She admits to taking exedrin twice daily for 1 month. She had a similiar episode of upper GI bleed in 2017, but EGD at that time did not reveal an obvious source. She denies any sick contacts or recent travel. She notes almost having a near syncopal episode prior to her 2nd episode of hematemsis at home. PMHx: Anxiety, Arthritis, CAD, Cardia Arrhythmia, Diabetes, HTN, Hypercholesterolemia, Osteoporosis PSHx: denies Family hx: denies any hx of GI related malignancies Social hx: denies nay smoking, illicit drug use, or alcohol use ROS: 12 point ROS conducted, neg other than above Past Patient History - Infectious Disease Hx of Infectious Diseases: None - Past Medical History & Family History Past Medical History?: Yes - Past Social History Smoking Status: Never Smoked - CARDIAC Hx Cardia Arrhythmia: Yes Hx Hypercholesterolemia: Yes Hx Hypertension: Yes - PULMONARY Hx Respiratory Disorders: No - NEUROLOGICAL Hx Neurological Disorder: No - HEENT Hx HEENT Problems: No - RENAL Hx Chronic Kidney Disease: No - ENDOCRINE/METABOLIC Hx Endocrine Disorders: Yes Hx Diabetes Mellitus Type 2: Yes - HEMATOLOGICAL/ONCOLOGICAL Hx Blood Disorders: No - INTEGUMENTARY Hx Dermatological Problems: No - MUSCULOSKELETAL/RHEUMATOLOGICAL Hx Arthritis: Yes Hx Osteoporosis: Yes - GASTROINTESTINAL Hx Gastrointestinal Disorders: No - GENITOURINARY/GYNECOLOGICAL Hx Genitourinary Disorders: No - PSYCHIATRIC Hx Anxiety: Yes Hx Substance Use: No - SURGICAL HISTORY Hx Surgeries: Yes Hx Section: Yes Hx Orthopedic Surgery: Yes (Right ankle, Left shoulder.) - ANESTHESIA Hx Anesthesia: Yes Hx Anesthesia Reactions: No Hx Malignant Hyperthermia: No Meds Allergies/Adverse Reactions: Allergies Allergy/AdvReac Type Severity Reaction Status Date / Time No Known Allergies Allergy Verified 06/30/17 11:42 - Medications Medications: Current Medications Pantoprazole Sodium 80 mg/ (Sodium Chloride) 100 mls @ 10 mls/hr IV .Q10H STA Stop: 11/04/18 21:27 Sodium Chloride (Sodium Chloride 0.9%) 500 mls @ 1,000 mls/hr IV .Q30M ONE Stop: 11/04/18 12:09 Physical Exam - Constitutional Appears: Non-toxic, Chronically Ill - Head Exam Head Exam: ATRAUMATIC, NORMOCEPHALIC - Eye Exam Eye Exam: Normal appearance - ENT Exam ENT Exam: Mucous Membranes Moist, Normal Exam - Neck Exam Neck exam: Positive for: Normal Inspection - Respiratory Exam Respiratory Exam: Clear to Auscultation Bilateral, NORMAL BREATHING PATTERN. absent: Rales, Rhonchi, Wheezes - Cardiovascular Exam Cardiovascular Exam: REGULAR RHYTHM, +S1, +S2 - GI/Abdominal Exam GI & Abdominal Exam: Normal Bowel Sounds, Soft, Tenderness (LLQ LLQ) - Extremities Exam Extremities exam: Negative for: joint swelling, pedal edema - Neurological Exam Neurological exam: Alert, Oriented x3 - Skin Skin Exam: Dry, Intact, Pallor, Warm Results - Vital Signs Recent Vital Signs: Last Vital Signs Temp Pulse 92 H 11/04/18 11:50 Resp 16 11/04/18 11:50 BP 142/77 11/04/18 11:50 Pulse Ox 95 11/04/18 11:52 - Labs Result Diagrams: 11/04/18 10:57 11/04/18 10:57 Labs: Laboratory Results - last 24 hr 11/04/18 11/04/18 11/04/18 10:57 10:57 11:11 WBC 10.8 RBC 3.44 L Hgb 10.6 L Hct 31.9 L MCV 92.8 D MCH 30.8 MCHC 33.2 RDW 13.7 Plt Count 275 MPV 10.0 Neut % (Auto) 80.6 H Lymph % (Auto) 6.9 L [place] % (Auto) 5.9 Eos % (Auto) 5.8 H Baso % (Auto) 0.8 Neut # (Auto) 8.7 H Lymph # (Auto) 0.7 L [place] # (Auto) 0.6 Eos # (Auto) 0.6 Baso # (Auto) 0.1 Neutrophils % (Manual) 82 H Band Neutrophils % 1 Lymphocytes % (Manual) 8 L Monocytes % (Manual) 6 Eosinophils % (Manual) 3 Platelet Estimate Normal Hypochromasia (manual) Slight Poikilocytosis (manual Slight Anisocytosis (manual) Slight Sodium 142 Potassium 4.4 Chloride 103 Carbon Dioxide 26 Anion Gap 16 BUN 56 H Creatinine 0.9 Est GFR ( Amer) > 60 Est GFR (Non-Af Amer) 59 Random Glucose 202 H D Calcium 10.1 Total Bilirubin 0.2 AST 18 ALT 6 L D Alkaline Phosphatase 53 Troponin I < 0.0120 NT-Pro-B Natriuret Pep 45.0 Total Protein 6.6 Albumin 3.9 Globulin 2.7 Albumin/Globulin Ratio 1.4 Lipase 252 Stool Occult Blood Negative Assessment & Plan - Assessment and Plan (Free Text) Assessment: Rosalinda Ramos is a 88F w/ hx of HTN, HL, asthma who presents with hematemsis Hematemsis etiology unclear;DDx: PUD, AVM, maligancy Abd pain HTN COPD Melena? Plan: -keep npo -okay with PPI drio for now -order INR -repeat h/h in 4 hours -will wait for Trop to r/o cardiac event -will try for EGD today, pending anes clearance -keep hgb >8 -maintain x2 IV line D/W Dr. Heaton
[2018-11-04 12:34] LABS: INR 1.3; PROTHROMBIN TIME 13.7 SECONDS (9.7-12.2)
[2018-11-04] MEDS ORDERED: Etomidate 20 mg/10ml Inj IV ONE (12:45)
[2018-11-04] MEDS ORDERED: Esmolol 100 mg/10ml Inj IV ONE (12:45)
[2018-11-04] MEDS ORDERED: Succinylcholine Chloride 20 mg/ml Syr (5 ml) IV ONE (12:45)
[2018-11-04] MEDS ORDERED: Phenylephrine 10 mg/ml Inj ONE (13:31)
[2018-11-04] MEDS ORDERED: Midazolam 2 MG/2 ML VIAL IVP PRN (14:21)
[2018-11-04] MEDS ORDERED: Propofol 10 mg/ml Inj (20 ML) ONE (14:28)
[2018-11-04] MEDS: Propofol 10 mg/ml 1,000 MG/100 ML VIAL IV PRN ×4 (14:45→21:40)
[2018-11-04] MEDS: Pantoprazole 80 MG in Sodium Chloride 0.9% 100 ML IVPB SCH (15:25)
--- NOTE | 2018-11-04 16:08 | RAD ---
Date of service: 11/04/2018 HISTORY: intubated COMPARISON: No prior. TECHNIQUE: 1 view obtained. FINDINGS: LUNGS: Interval insertion of an endotracheal tube the tip is at the orifice of the right mainstem bronchus. Recommend 2 cm retraction. No consolidation seen. Some perihilar cystic changes background emphysema is a concern. PLEURA: No significant pleural effusion identified, no pneumothorax apparent. CARDIOVASCULAR: There is presence of aortic atherosclerotic calcification on x-ray. Heart size appear top-normal. No significant appearing pulmonary venous congestion. OSSEOUS STRUCTURES: Diffuse cervical thoracic and lumbar spondylosis. Bilateral shoulder arthrosis. Left humeral tuberosity anchor. VISUALIZED UPPER ABDOMEN: Normal. OTHER FINDINGS: None. IMPRESSION: Interval insertion endotracheal tube. Tip at right mainstem orifice-recommend retraction 2 cm-these findings were called up to the ICU and directly given to the nurse taking care of this patient Kady on 11/04/2018 at 4:04 p.m. Other findings as above.
[2018-11-04 16:10] LABS: ARTERIAL BLOOD GAS HCO3 23.2 mmol/L (21-28); ARTERIAL BLOOD GAS O2 SAT 99.8 % (95-98); ARTERIAL BLOOD GAS PCO2 38 mm/Hg (35-45); ARTERIAL BLOOD GAS PH 7.38 (7.35-7.45); ARTERIAL BLOOD GAS PO2 468 mm/Hg (80-100); ARTERIAL BLOOD GAS TCO2 23.7 mmol/L (22-28)
--- NOTE | 2018-11-04 17:03 | RAD ---
Date of service: 11/04/2018 HISTORY: ET tube placement COMPARISON: 11/04/2018 at 1509 hr 05/13/2016 TECHNIQUE: 1 view obtained. FINDINGS: LUNGS: The endotracheal tube has been retracted approximately 2-3 cm with its tip accordingly this distance from the kiarra. There is vague low-density nodular opacity at the left mid to lower lung zone which is seen on the prior same-day chest x-ray study but not mention previously projected over the inferior tip of the left scapula and may have been attributed to summation of osseous densities here with posterior rib. Is off of the inferior tip of the left scapula on the current study. Diagnosis of exclusion is that of a left pulmonary nodule. It is not clearly seen on the [address] chest without IV contrast enhancement for further clarification. PLEURA: No significant pleural effusion identified, no pneumothorax apparent. CARDIOVASCULAR: No aortic atherosclerotic calcification present. Normal cardiac size. No pulmonary vascular congestion. OSSEOUS STRUCTURES: Thoracic spondylosis is noted. There is a confounding lucencies over ribs and exuberant the coaster cartilaginous junctional calcifications. Prior CT reports note is made of a prior old rib fractures. Chronicity of all these findings is not known. Bilateral shoulder arthrosis. Left humeral tuberosity orthopedic anchor in place as before VISUALIZED UPPER ABDOMEN: Normal. OTHER FINDINGS: None. IMPRESSION: Interval retraction of the prior endotracheal tube tip now at the level of the superior aortic arch. Position appears satisfactory. Interval increase conspicuity/greater appreciated in of a vague approximately 10 mm nodular opacity projecting over the left mid to lower lung zone-a left pulmonary neoplasm is the diagnosis of exclusion. This is not clearly identified as such on the [address] of the chest for further clarification. Comments: Study marked for PA review .
[2018-11-04 17:31] LABS: BASO # 0.1 K/uL (0.0-0.2); EOS # 0.3 K/uL (0.0-0.7); EOS % 2.6 % (0.0-4.0); LYMPH # 1.4 K/uL (1.0-4.3); LYMPH % 13.2 % (20.0-40.0); MEAN CELL VOLUME 92.4 fL (81.0-99.0); MEAN CORPUSCULAR HEMOGLOBIN 30.4 pg (27.0-31.0); MEAN CORPUSCULAR HGB CONC 32.9 g/dL (33.0-37.0); MEAN PLATELET VOLUME 10.1 fL (7.2-11.7); MONO # 1.1 K/uL (0.0-0.8); MONO % 10.8 % (0.0-10.0); NEUT # 7.5 K/uL (1.8-7.0); NEUT % 72.4 % (50.0-75.0); RBC 2.82 Mil/uL (3.80-5.20); RED CELL DISTRIBUTION WIDTH 13.9 % (11.5-14.5); WHITE BLOOD COUNT 10.3 K/uL (4.8-10.8)
[2018-11-04 17:42] LABS: HEMOGLOBIN 8.6 g/dL (11.0-16.0)
--- NOTE | 2018-11-04 17:45 | CP.PCM.CON ---
<José Manuel Villarreal - Last Filed: 11/04/18 17:38> History of Present Illness - History of Present Illness History of Present Illness: PGY-[address] Roberson Patient presents with chief complaint hematemesis with associated abdominal pain. History obtained from GI team as patient remained intubated at present. Patient complained of sudden onset hematemesis the day prior. Denies rectal bleeding, though possible melena noted on ER rectal exam. ICU consulted for post-op management as GI team (Dr. Gates) with patient kept intubated following EGD today. EGD showed active bleeding and clots in fundus which where injected with epi. ROS unable to be obtained. PMHx: Anxiety, Arthritis, CAD, Cardia Arrhythmia, Diabetes, HTN, Hypercholesterolemia, Osteoporosis PSHx: denies Family hx: denies any hx of GI related malignancies Social hx: denies nay smoking, illicit drug use, or alcohol use Review of Systems - Review of Systems Systems not reviewed;Unavailable: Intubated Past Patient History - Infectious Disease Hx of Infectious Diseases: None - Past Medical History & Family History Past Medical History?: Yes - Past Social History Smoking Status: Never Smoked - CARDIAC Hx Cardia Arrhythmia: Yes Hx Hypercholesterolemia: Yes Hx Hypertension: Yes - PULMONARY Hx Respiratory Disorders: No - NEUROLOGICAL Hx Neurological Disorder: No - HEENT Hx HEENT Problems: No - RENAL Hx Chronic Kidney Disease: No - ENDOCRINE/METABOLIC Hx Endocrine Disorders: Yes Hx Diabetes Mellitus Type 2: Yes - HEMATOLOGICAL/ONCOLOGICAL Hx Blood Disorders: No - INTEGUMENTARY Hx Dermatological Problems: No - MUSCULOSKELETAL/RHEUMATOLOGICAL Hx Arthritis: Yes Hx Osteoporosis: Yes - GASTROINTESTINAL Hx Gastrointestinal Disorders: Yes Other/Comment: HX. GI BLEEDING - GENITOURINARY/GYNECOLOGICAL Hx Genitourinary Disorders: No - PSYCHIATRIC Hx Anxiety: Yes Hx Substance Use: No - SURGICAL HISTORY Hx Surgeries: Yes Hx Section: Yes Hx Orthopedic Surgery: Yes (Right ankle, Left shoulder.) - ANESTHESIA Hx Anesthesia: Yes Hx Anesthesia Reactions: No Hx Malignant Hyperthermia: No Meds Allergies/Adverse Reactions: Allergies Allergy/AdvReac Type Severity Reaction Status Date / Time No Known Allergies Allergy Verified 06/30/17 11:42 - Medications Medications: Current Medications Propofol (Diprivan) 1,000 mg in 100 mls @ 1.633 mls/hr IV .Q24H PRN; Protocol PRN Reason: TITRATE PER MD ORDER Last Admin: 11/04/18 17:35 Dose: 70 mcg/kg/min, 22.861 mls/hr Pantoprazole Sodium 80 mg/ (Sodium Chloride) 100 mls @ 10 mls/hr IVPB .Q10H [facility] Last Admin: 11/04/18 15:25 Dose: 10 mls/hr Metoclopramide HCl (Reglan) 10 mg IVP Q6 [facility] Last Admin: 11/04/18 17:24 Dose: 10 mg Midazolam HCl (Versed Inj) 2 mg IVP ONCE PRN PRN Reason: Agitation/Restlessness Physical Exam - Constitutional Appears: No Acute Distress - Head Exam Head Exam: ATRAUMATIC, NORMOCEPHALIC - Eye Exam Eye Exam: EOMI - Respiratory Exam Respiratory Exam: Clear to Auscultation Bilateral. absent: Rhonchi, Wheezes Additional comments: intubated, on vent - Cardiovascular Exam Cardiovascular Exam: REGULAR RHYTHM, +S1, +S2 - GI/Abdominal Exam GI & Abdominal Exam: Normal Bowel Sounds, Soft. absent: Tenderness - Neurological Exam Additional comments: sedated - Skin Skin Exam: Dry, Intact Results - Vital Signs Recent Vital Signs: Last Vital Signs Temp 97.6 F 11/04/18 12:43 Pulse 92 H 11/04/18 12:43 Resp 16 11/04/18 12:43 BP 142/77 11/04/18 12:43 Pulse Ox 95 11/04/18 17:22 - Labs Result Diagrams: 11/04/18 10:57 11/04/18 10:57 Labs: Laboratory Results - last 24 hr 11/04/18 11/04/18 11/04/18 10:57 10:57 10:59 WBC 10.8 RBC 3.44 L Hgb 10.6 L Hct 31.9 L MCV 92.8 D MCH 30.8 MCHC 33.2 RDW 13.7 Plt Count 275 MPV 10.0 Neut % (Auto) 80.6 H Lymph % (Auto) 6.9 L Divide % (Auto) 5.9 Eos % (Auto) 5.8 H Baso % (Auto) 0.8 Neut # (Auto) 8.7 H Lymph # (Auto) 0.7 L Divide # (Auto) 0.6 Eos # (Auto) 0.6 Baso # (Auto) 0.1 Neutrophils % (Manual) 82 H Band Neutrophils % 1 Lymphocytes % (Manual) 8 L Monocytes % (Manual) 6 Eosinophils % (Manual) 3 Platelet Estimate Normal Hypochromasia (manual) Slight Poikilocytosis (manual Slight Anisocytosis (manual) Slight PT INR Puncture Site pCO2 pO2 HCO3 ABG pH ABG Total CO2 ABG O2 Saturation ABG Base Excess Tyrell Test A-a O2 Difference Respiratory Index Vent Mode Mechanical Rate FiO2 Tidal Volume PEEP Sodium 142 Potassium 4.4 Chloride 103 Carbon Dioxide 26 Anion Gap 16 BUN 56 H Creatinine 0.9 Est GFR ( Amer) > 60 Est GFR (Non-Af Amer) 59 Random Glucose 202 H D Calcium 10.1 Total Bilirubin 0.2 AST 18 ALT 6 L D Alkaline Phosphatase 53 Troponin I < 0.0120 NT-Pro-B Natriuret Pep 45.0 Total Protein 6.6 Albumin 3.9 Globulin 2.7 Albumin/Globulin Ratio 1.4 Lipase 252 Stool Occult Blood Blood Type O POSITIVE Antibody Screen Negative 11/04/18 11/04/18 11/04/18 11:11 12:20 16:00 WBC RBC Hgb Hct MCV MCH MCHC RDW Plt Count MPV Neut % (Auto) Lymph % (Auto) Divide % (Auto) Eos % (Auto) Baso % (Auto) Neut # (Auto) Lymph # (Auto) Divide # (Auto) Eos # (Auto) Baso # (Auto) Neutrophils % (Manual) Band Neutrophils % Lymphocytes % (Manual) Monocytes % (Manual) Eosinophils % (Manual) Platelet Estimate Hypochromasia (manual) Poikilocytosis (manual Anisocytosis (manual) PT 13.7 H INR 1.3 Puncture Site Rb pCO2 38 pO2 468 H HCO3 23.2 ABG pH 7.38 ABG Total CO2 23.7 ABG O2 Saturation 99.8 H ABG Base Excess -2.3 L Tyrell Test Na A-a O2 Difference 198.0 Respiratory Index 0.4 Vent Mode Prvc Mechanical Rate 14 FiO2 100.0 Tidal Volume 500 PEEP 5 Sodium Potassium Chloride Carbon Dioxide Anion Gap BUN Creatinine Est GFR ( Amer) Est GFR (Non-Af Amer) Random Glucose Calcium Total Bilirubin AST ALT Alkaline Phosphatase Troponin I NT-Pro-B Natriuret Pep Total Protein Albumin Globulin Albumin/Globulin Ratio Lipase Stool Occult Blood Negative Blood Type Antibody Screen Assessment & Plan - Assessment and Plan (Free Text) Assessment: Post-op ICU monitoring for 88 y/o F c/o hematemeis s/p EGD, intubated Pulm S/p EGD, intubated on vent -Maintain spO2> 92% -Plan to extubate tomorrow and downgrade, to coordinate with GI GI GI Bleed/hematemesis -GI, Dr. Heaton -S/p EGD with clot evacuation and epi -Post-op ICU monitoring -Protnix ggt -Reglan 10 IV Q6 -NS @ 80 -Q8 CBC - monitor HGB -No signs of active bleeding PPx -VTE ppx c/i 2/2 GIB. SCDs -Protonix drip -Propofol drip Assessment and plan d/w Dr. Da Villarreal, PGY-1 <Gsutavo Roberson S - Last Filed: 11/04/18 18:06> Meds - Medications Medications: Current Medications Propofol (Diprivan) 1,000 mg in 100 mls @ 1.633 mls/hr IV .Q24H PRN; Protocol PRN Reason: TITRATE PER MD ORDER Last Admin: 11/04/18 17:35 Dose: 70 mcg/kg/min, 22.861 mls/hr Pantoprazole Sodium 80 mg/ (Sodium Chloride) 100 mls @ 10 mls/hr IVPB .Q10H [facility] Last Admin: 11/04/18 15:25 Dose: 10 mls/hr Metoclopramide HCl (Reglan) 10 mg IVP Q6 [facility] Last Admin: 11/04/18 17:24 Dose: 10 mg Midazolam HCl (Versed Inj) 2 mg IVP ONCE PRN PRN Reason: Agitation/Restlessness Results - Vital Signs Recent Vital Signs: Last Vital Signs Temp 97.6 F 11/04/18 12:43 Pulse 92 H 11/04/18 12:43 Resp 16 11/04/18 12:43 BP 142/77 11/04/18 12:43 Pulse Ox 95 11/04/18 17:22 - Labs Result Diagrams: 11/04/18 17:27 11/04/18 10:57 Labs: Laboratory Results - last 24 hr 11/04/18 11/04/18 11/04/18 10:57 10:57 10:59 WBC 10.8 RBC 3.44 L Hgb 10.6 L Hct 31.9 L MCV 92.8 D MCH 30.8 MCHC 33.2 RDW 13.7 Plt Count 275 MPV 10.0 Neut % (Auto) 80.6 H Lymph % (Auto) 6.9 L Divide % (Auto) 5.9 Eos % (Auto) 5.8 H Baso % (Auto) 0.8 Neut # (Auto) 8.7 H Lymph # (Auto) 0.7 L Divide # (Auto) 0.6 Eos # (Auto) 0.6 Baso # (Auto) 0.1 Neutrophils % (Manual) 82 H Band Neutrophils % 1 Lymphocytes % (Manual) 8 L Monocytes % (Manual) 6 Eosinophils % (Manual) 3 Platelet Estimate Normal Hypochromasia (manual) Slight Poikilocytosis (manual Slight Anisocytosis (manual) Slight PT INR Puncture Site pCO2 pO2 HCO3 ABG pH ABG Total CO2 ABG O2 Saturation ABG Base Excess Tyrell Test A-a O2 Difference Respiratory Index Vent Mode Mechanical Rate FiO2 Tidal Volume PEEP Sodium 142 Potassium 4.4 Chloride 103 Carbon Dioxide 26 Anion Gap 16 BUN 56 H Creatinine 0.9 Est GFR ( Amer) > 60 Est GFR (Non-Af Amer) 59 Random Glucose 202 H D Calcium 10.1 Total Bilirubin 0.2 AST 18 ALT 6 L D Alkaline Phosphatase 53 Troponin I < 0.0120 NT-Pro-B Natriuret Pep 45.0 Total Protein 6.6 Albumin 3.9 Globulin 2.7 Albumin/Globulin Ratio 1.4 Lipase 252 Stool Occult Blood Blood Type O POSITIVE Antibody Screen Negative 11/04/18 11/04/18 11/04/18 11:11 12:20 16:00 WBC RBC Hgb Hct MCV MCH MCHC RDW Plt Count MPV Neut % (Auto) Lymph % (Auto) Divide % (Auto) Eos % (Auto) Baso % (Auto) Neut # (Auto) Lymph # (Auto) Divide # (Auto) Eos # (Auto) Baso # (Auto) Neutrophils % (Manual) Band Neutrophils % Lymphocytes % (Manual) Monocytes % (Manual) Eosinophils % (Manual) Platelet Estimate Hypochromasia (manual) Poikilocytosis (manual Anisocytosis (manual) PT 13.7 H INR 1.3 Puncture Site Rb pCO2 38 pO2 468 H HCO3 23.2 ABG pH 7.38 ABG Total CO2 23.7 ABG O2 Saturation 99.8 H ABG Base Excess -2.3 L Tyrell Test Na A-a O2 Difference 198.0 Respiratory Index 0.4 Vent Mode Prvc Mechanical Rate 14 FiO2 100.0 Tidal Volume 500 PEEP 5 Sodium Potassium Chloride Carbon Dioxide Anion Gap BUN Creatinine Est GFR ( Amer) Est GFR (Non-Af Amer) Random Glucose Calcium Total Bilirubin AST ALT Alkaline Phosphatase Troponin I NT-Pro-B Natriuret Pep Total Protein Albumin Globulin Albumin/Globulin Ratio Lipase Stool Occult Blood Negative Blood Type Antibody Screen 11/04/18 17:27 WBC 10.3 RBC 2.82 L Hgb 8.6 L D Hct 26.1 L MCV 92.4 MCH 30.4 MCHC 32.9 L RDW 13.9 Plt Count 217 MPV 10.1 Neut % (Auto) 72.4 Lymph % (Auto) 13.2 L Divide % (Auto) 10.8 H Eos % (Auto) 2.6 Baso % (Auto) 1.0 Neut # (Auto) 7.5 H Lymph # (Auto) 1.4 Divide # (Auto) 1.1 H Eos # (Auto) 0.3 Baso # (Auto) 0.1 Neutrophils % (Manual) Band Neutrophils % Lymphocytes % (Manual) Monocytes % (Manual) Eosinophils % (Manual) Platelet Estimate Hypochromasia (manual) Poikilocytosis (manual Anisocytosis (manual) PT INR Puncture Site pCO2 pO2 HCO3 ABG pH ABG Total CO2 ABG O2 Saturation ABG Base Excess Tyrell Test A-a O2 Difference Respiratory Index Vent Mode Mechanical Rate FiO2 Tidal Volume PEEP Sodium Potassium Chloride Carbon Dioxide Anion Gap BUN Creatinine Est GFR ( Amer) Est GFR (Non-Af Amer) Random Glucose Calcium Total Bilirubin AST ALT Alkaline Phosphatase Troponin I NT-Pro-B Natriuret Pep Total Protein Albumin Globulin Albumin/Globulin Ratio Lipase Stool Occult Blood Blood Type Antibody Screen Attending/Attestation - Attestation I have personally seen and examined this patient.: Yes I have fully participated in the care of the patient.: Yes I have reviewed all pertinent clinical information: Yes Notes (Text): 11/04/18 18:05 Patient seen and examined 88-year-old female presented with hematemesis Status post EGD with blood clots status post epi injection Monitor CBC and transfuse as necessary Continue ventilatory support for repeat EGD in a.m. IV sedation Protonix drip Case discussed with family at length Total critical care time 50 minutes
[2018-11-04 19:49] VITALS: BMI 25.8
[2018-11-05] MEDS: Propofol 10 mg/ml 1,000 MG/100 ML VIAL IV PRN ×3 (01:23→13:05)
[2018-11-05] MEDS: Pantoprazole 80 MG in Sodium Chloride 0.9% 100 ML IVPB SCH ×4 (01:24→22:18)
[2018-11-05 05:50] LABS: ABG ALLEN TEST POS; ARTERIAL BLOOD GAS HCO3 23.9 mmol/L (21-28); ARTERIAL BLOOD GAS HEMOGLOBIN 12.1 g/dL (11.7-17.4); ARTERIAL BLOOD GAS O2 SAT 99.5 % (95-98); ARTERIAL BLOOD GAS PCO2 35 mm/Hg (35-45); ARTERIAL BLOOD GAS PH 7.42 (7.35-7.45); ARTERIAL BLOOD GAS PO2 158 mm/Hg (80-100); ARTERIAL BLOOD GAS TCO2 23.8 mmol/L (22-28)
[2018-11-05 05:57] LABS: BASO # 0.1 K/uL (0.0-0.2); BASO % 0.7 % (0.0-2.0); EOS # 0.1 K/uL (0.0-0.7); EOS % 0.9 % (0.0-4.0); HEMOGLOBIN 12.1 g/dL (11.0-16.0); LYMPH # 0.5 K/uL (1.0-4.3); LYMPH % 3.7 % (20.0-40.0); MEAN CELL VOLUME 89.9 fL (81.0-99.0); MEAN CORPUSCULAR HEMOGLOBIN 30.2 pg (27.0-31.0); MEAN CORPUSCULAR HGB CONC 33.6 g/dL (33.0-37.0); MEAN PLATELET VOLUME 10.5 fL (7.2-11.7); MONO % 6.9 % (0.0-10.0); NEUT # 12.7 K/uL (1.8-7.0); NEUT % 87.8 % (50.0-75.0); PLATELET COUNT 212 K/uL (130-400); RBC 4.02 Mil/uL (3.80-5.20); RED CELL DISTRIBUTION WIDTH 14.8 % (11.5-14.5); WHITE BLOOD COUNT 14.5 K/uL (4.8-10.8)
[2018-11-05 06:18] LABS: ALB/GLOB RATIO 1.4 (1.0-2.1); ALBUMIN 3.7 g/dL (3.5-5.0); ALT/SGPT 9 U/L (9-52); AST/SGOT 30 U/L (14-36); BLOOD UREA NITROGEN 46 mg/dL (7-17); CALCIUM 8.8 mg/dl (8.6-10.4); GFR NON-AFRICAN AMERICAN 53
[2018-11-05 08:50] LABS: BANDS 3 % (0-2); EOSINOPHIL 1 % (0-4); TOTAL CELLS COUNTED 100
[2018-11-05 08:51] LABS: LYMPHOCYTE 4 % (20-40); MONOCYTE 7 % (0-10); NEUTROPHIL 86 % (50-75); PLATELET ESTIMATE NORMAL (NORMAL)
[2018-11-05 08:52] LABS: LARGE PLATELETS PRESENT
--- NOTE | 2018-11-05 09:28 | RAD ---
Date of service: 11/05/2018 HISTORY: intubated COMPARISON: Portable chest 11/04/2018 4:14 p.m.. TECHNIQUE: 1 view obtained. FINDINGS: LUNGS: Endotracheal is again identified. It appears to terminate approximately 5.1 cm above the kiarra, with chronic better depicted in the current exam. There is likely no significant interval change in positioning. No active pulmonary disease. PLEURA: No significant pleural effusion identified, no pneumothorax apparent. CARDIOVASCULAR: Calcific atherosclerotic changes are seen related to the thoracic aorta. Normal cardiac size. No pulmonary vascular congestion. OSSEOUS STRUCTURES: No significant abnormalities. VISUALIZED UPPER ABDOMEN: Normal. OTHER FINDINGS: None. IMPRESSION: Endotracheal tube is not significantly changed in position. No interval acute cardiopulmonary disease appreciable.
--- NOTE | 2018-11-05 16:53 | CP.CCUPN ---
<José Manuel Villarreal - Last Filed: 11/05/18 16:49> CCU Subjective - Physician Review Subjective (Free Text): 11/05/18 16:59 PGY-1 ICU Progress Note for Dr. Roberson Patient seen and examined at bedside. No acute events overnigh. S/p repeat EGD with biopsy today bedside, patient tolerated procedure well. Patient extubated post-procedure once weaned off sedation. Tolerating nasal canula. CCU Objective - Vital Signs / Intake & Output Vital Signs (Last 4 hours): Vital Signs Temp Pulse Resp BP Pulse Ox 11/05/18 13:35 98.6 F 111 H 12 151/68 H 100 Intake and Output (Last 8hrs): Intake & Output 11/05/18 11/05/18 11/05/18 06:59 14:59 22:59 Intake Total 784.6 386.0 Output Total 300 0 Balance 484.6 386.0 Weight 119 lb 14.903 oz Intake: IV 200 300.0 Intake, IV Amount 259.6 86.0 Right Forearm 179.6 36.0 Right Upper arm 80 50 Blood Product 325 Red Blood Cells Cpd As1 325 Lr Unit [id number] Output: Urine 300 Urine, Voided 300 Emesis 0 Other: # Bowel Movements 0 - Physical Exam Head: Positive for: Atraumatic, Normocephalic Pupils: Positive for: PERRL Extroacular Muscles: Positive for: EOMI Respiratory/Chest: Positive for: Clear to Auscultation, Good Air Exchange Cardiovascular: Positive for: Regular Rate and Rhythm, Normal S1, S2 Abdomen: Negative for: Distention Neurological: Positive for: CN II-XII Intact Skin: Positive for: Dry, Normal Color Psychiatric: Positive for: Alert, Oriented x 3 - Medications Active Medications: Active Medications Generic Name Dose Route Start Last Admin Trade Name Freq PRN Reason Stop Dose Admin Pantoprazole Sodium 80 mg/ 100 mls @ 10 mls/hr 11/04/18 16:45 11/05/18 12:59 Sodium Chloride IVPB Not Given .Q10H ALEXIS 8 MG/HR Propofol 1,000 mg in 100 mls @ 1.8 mls/hr 11/04/18 19:54 11/05/18 13:05 Diprivan IV 25 mcg/kg/min .Q24H PRN 9 mls/hr TITRATE PER MD ORDER Administration Protocol 5 MCG/KG/MIN Metoclopramide HCl 10 mg 11/04/18 18:00 11/05/18 13:00 Reglan IVP 10 mg Q6 ALEXIS Administration Midazolam HCl 2 mg 11/04/18 14:21 Versed Inj IVP ONCE PRN Agitation/Restlessness - Patient Studies Lab Studies: Lab Studies 11/05/18 11/05/18 11/05/18 Range/Units 05:54 05:54 05:53 WBC 14.5 H (4.8-10.8) K/uL RBC 4.02 (3.80-5.20) Mil/uL Hgb 12.1 D (11.0-16.0) g/dL Hct 36.1 (34.0-47.0) % MCV 89.9 D (81.0-99.0) fL MCH 30.2 (27.0-31.0) pg MCHC 33.6 (33.0-37.0) g/dL RDW 14.8 H (11.5-14.5) % Plt Count 212 (130-400) K/uL MPV 10.5 (7.2-11.7) fL Neut % (Auto) 87.8 H (50.0-75.0) % Lymph % (Auto) 3.7 L (20.0-40.0) % [place] % (Auto) 6.9 (0.0-10.0) % Eos % (Auto) 0.9 (0.0-4.0) % Baso % (Auto) 0.7 (0.0-2.0) % Neut # (Auto) 12.7 H (1.8-7.0) K/uL Lymph # (Auto) 0.5 L (1.0-4.3) K/uL [place] # (Auto) 1.0 H (0.0-0.8) K/uL Eos # (Auto) 0.1 (0.0-0.7) K/uL Baso # (Auto) 0.1 (0.0-0.2) K/uL Neutrophils % (Manual) 86 H (50-75) % Band Neutrophils % 3 H (0-2) % Lymphocytes % (Manual) 4 L (20-40) % Monocytes % (Manual) 7 (0-10) % Eosinophils % (Manual) 1 (0-4) % Platelet Estimate Normal (NORMAL) Large Platelets Present Puncture Site pCO2 (35-45) mm/Hg pO2 (80-100) mm/Hg HCO3 (21-28) mmol/L ABG pH (7.35-7.45) ABG Total CO2 (22-28) mmol/L ABG O2 Saturation (95-98) % ABG Base Excess (-2.0-3.0) mmol/L ABG Hemoglobin (11.7-17.4) g/dL ABG Carboxyhemoglobin (0.5-1.5) % POC ABG HHb (Measured) (0.0-5.0) % ABG Methemoglobin (0.0-3.0) % Tyrell Test A-a O2 Difference mm/Hg Respiratory Index Hgb O2 Saturation (95.0-98.0) % Vent Mode Mechanical Rate FiO2 % Tidal Volume PEEP Sodium 139 (132-148) mmol/L Potassium 3.9 (3.6-5.2) mmol/L Chloride 106 (98-107) mmol/L Carbon Dioxide 22 (22-30) mmol/L Anion Gap 15 (10-20) BUN 46 H (7-17) mg/dL Creatinine 1.0 (0.7-1.2) mg/dL Est GFR ( Amer) > 60 Est GFR (Non-Af Amer) 53 POC Glucose (mg/dL) 233 H (65-110) mg/dL Random Glucose 208 H (65-105) mg/dL Calcium 8.8 (8.6-10.4) mg/dl Phosphorus 2.7 (2.5-4.5) mg/dL Magnesium 1.6 (1.6-2.3) mg/dL Total Bilirubin 0.4 (0.2-1.3) mg/dL AST 30 (14-36) U/L ALT 9 D (9-52) U/L Alkaline Phosphatase 50 (38-126) U/L Total Protein 6.4 (6.3-8.3) g/dL Albumin 3.7 (3.5-5.0) g/dL Globulin 2.7 (2.2-3.9) gm/dL Albumin/Globulin Ratio 1.4 (1.0-2.1) Blood Type Antibody Screen 11/05/18 11/04/18 11/04/18 Range/Units 05:00 23:38 18:17 WBC (4.8-10.8) K/uL RBC (3.80-5.20) Mil/uL Hgb (11.0-16.0) g/dL Hct (34.0-47.0) % MCV (81.0-99.0) fL MCH (27.0-31.0) pg MCHC (33.0-37.0) g/dL RDW (11.5-14.5) % Plt Count (130-400) K/uL MPV (7.2-11.7) fL Neut % (Auto) (50.0-75.0) % Lymph % (Auto) (20.0-40.0) % [place] % (Auto) (0.0-10.0) % Eos % (Auto) (0.0-4.0) % Baso % (Auto) (0.0-2.0) % Neut # (Auto) (1.8-7.0) K/uL Lymph # (Auto) (1.0-4.3) K/uL [place] # (Auto) (0.0-0.8) K/uL Eos # (Auto) (0.0-0.7) K/uL Baso # (Auto) (0.0-0.2) K/uL Neutrophils % (Manual) (50-75) % Band Neutrophils % (0-2) % Lymphocytes % (Manual) (20-40) % Monocytes % (Manual) (0-10) % Eosinophils % (Manual) (0-4) % Platelet Estimate (NORMAL) Large Platelets Puncture Site R rad pCO2 35 (35-45) mm/Hg pO2 158 H (80-100) mm/Hg HCO3 23.9 (21-28) mmol/L ABG pH 7.42 (7.35-7.45) ABG Total CO2 23.8 (22-28) mmol/L ABG O2 Saturation 99.5 H (95-98) % ABG Base Excess -1.3 (-2.0-3.0) mmol/L ABG Hemoglobin 12.1 (11.7-17.4) g/dL ABG Carboxyhemoglobin 1.4 (0.5-1.5) % POC ABG HHb (Measured) 0.5 (0.0-5.0) % ABG Methemoglobin 1.6 (0.0-3.0) % Tyrell Test Pos A-a O2 Difference 155.0 mm/Hg Respiratory Index 1.0 Hgb O2 Saturation 96.5 (95.0-98.0) % Vent Mode Prvc Mechanical Rate 14 FiO2 50.0 % Tidal Volume 450 PEEP 5 Sodium (132-148) mmol/L Potassium (3.6-5.2) mmol/L Chloride (98-107) mmol/L Carbon Dioxide (22-30) mmol/L Anion Gap (10-20) BUN (7-17) mg/dL Creatinine (0.7-1.2) mg/dL Est GFR ( Amer) Est GFR (Non-Af Amer) POC Glucose (mg/dL) 173 H 192 H (65-110) mg/dL Random Glucose (65-105) mg/dL Calcium (8.6-10.4) mg/dl Phosphorus (2.5-4.5) mg/dL Magnesium (1.6-2.3) mg/dL Total Bilirubin (0.2-1.3) mg/dL AST (14-36) U/L ALT (9-52) U/L Alkaline Phosphatase (38-126) U/L Total Protein (6.3-8.3) g/dL Albumin (3.5-5.0) g/dL Globulin (2.2-3.9) gm/dL Albumin/Globulin Ratio (1.0-2.1) Blood Type Antibody Screen 11/04/18 11/04/18 Range/Units 17:27 10:59 WBC 10.3 (4.8-10.8) K/uL RBC 2.82 L (3.80-5.20) Mil/uL Hgb 8.6 L D (11.0-16.0) g/dL Hct 26.1 L (34.0-47.0) % MCV 92.4 (81.0-99.0) fL MCH 30.4 (27.0-31.0) pg MCHC 32.9 L (33.0-37.0) g/dL RDW 13.9 (11.5-14.5) % Plt Count 217 (130-400) K/uL MPV 10.1 (7.2-11.7) fL Neut % (Auto) 72.4 (50.0-75.0) % Lymph % (Auto) 13.2 L (20.0-40.0) % [place] % (Auto) 10.8 H (0.0-10.0) % Eos % (Auto) 2.6 (0.0-4.0) % Baso % (Auto) 1.0 (0.0-2.0) % Neut # (Auto) 7.5 H (1.8-7.0) K/uL Lymph # (Auto) 1.4 (1.0-4.3) K/uL [place] # (Auto) 1.1 H (0.0-0.8) K/uL Eos # (Auto) 0.3 (0.0-0.7) K/uL Baso # (Auto) 0.1 (0.0-0.2) K/uL Neutrophils % (Manual) (50-75) % Band Neutrophils % (0-2) % Lymphocytes % (Manual) (20-40) % Monocytes % (Manual) (0-10) % Eosinophils % (Manual) (0-4) % Platelet Estimate (NORMAL) Large Platelets Puncture Site pCO2 (35-45) mm/Hg pO2 (80-100) mm/Hg HCO3 (21-28) mmol/L ABG pH (7.35-7.45) ABG Total CO2 (22-28) mmol/L ABG O2 Saturation (95-98) % ABG Base Excess (-2.0-3.0) mmol/L ABG Hemoglobin (11.7-17.4) g/dL ABG Carboxyhemoglobin (0.5-1.5) % POC ABG HHb (Measured) (0.0-5.0) % ABG Methemoglobin (0.0-3.0) % Tyrell Test A-a O2 Difference mm/Hg Respiratory Index Hgb O2 Saturation (95.0-98.0) % Vent Mode Mechanical Rate FiO2 % Tidal Volume PEEP Sodium (132-148) mmol/L Potassium (3.6-5.2) mmol/L Chloride (98-107) mmol/L Carbon Dioxide (22-30) mmol/L Anion Gap (10-20) BUN (7-17) mg/dL Creatinine (0.7-1.2) mg/dL Est GFR ( Amer) Est GFR (Non-Af Amer) POC Glucose (mg/dL) (65-110) mg/dL Random Glucose (65-105) mg/dL Calcium (8.6-10.4) mg/dl Phosphorus (2.5-4.5) mg/dL Magnesium (1.6-2.3) mg/dL Total Bilirubin (0.2-1.3) mg/dL AST (14-36) U/L ALT (9-52) U/L Alkaline Phosphatase (38-126) U/L Total Protein (6.3-8.3) g/dL Albumin (3.5-5.0) g/dL Globulin (2.2-3.9) gm/dL Albumin/Globulin Ratio (1.0-2.1) Blood Type O POSITIVE Antibody Screen Negative Laboratory Results - last 24 hr 11/04/18 11/04/18 11/04/18 10:59 17:27 18:17 WBC 10.3 RBC 2.82 L Hgb 8.6 L D Hct 26.1 L MCV 92.4 MCH 30.4 MCHC 32.9 L RDW 13.9 Plt Count 217 MPV 10.1 Neut % (Auto) 72.4 Lymph % (Auto) 13.2 L [place] % (Auto) 10.8 H Eos % (Auto) 2.6 Baso % (Auto) 1.0 Neut # (Auto) 7.5 H Lymph # (Auto) 1.4 [place] # (Auto) 1.1 H Eos # (Auto) 0.3 Baso # (Auto) 0.1 Neutrophils % (Manual) Band Neutrophils % Lymphocytes % (Manual) Monocytes % (Manual) Eosinophils % (Manual) Platelet Estimate Large Platelets Puncture Site pCO2 pO2 HCO3 ABG pH ABG Total CO2 ABG O2 Saturation ABG Base Excess ABG Hemoglobin ABG Carboxyhemoglobin POC ABG HHb (Measured) ABG Methemoglobin Tyrell Test A-a O2 Difference Respiratory Index Hgb O2 Saturation Vent Mode Mechanical Rate FiO2 Tidal Volume PEEP Sodium Potassium Chloride Carbon Dioxide Anion Gap BUN Creatinine Est GFR ( Amer) Est GFR (Non-Af Amer) POC Glucose (mg/dL) 192 H Random Glucose Calcium Phosphorus Magnesium Total Bilirubin AST ALT Alkaline Phosphatase Total Protein Albumin Globulin Albumin/Globulin Ratio Blood Type O POSITIVE Antibody Screen Negative 11/04/18 11/05/18 11/05/18 23:38 05:00 05:53 WBC RBC Hgb Hct MCV MCH MCHC RDW Plt Count MPV Neut % (Auto) Lymph % (Auto) [place] % (Auto) Eos % (Auto) Baso % (Auto) Neut # (Auto) Lymph # (Auto) [place] # (Auto) Eos # (Auto) Baso # (Auto) Neutrophils % (Manual) Band Neutrophils % Lymphocytes % (Manual) Monocytes % (Manual) Eosinophils % (Manual) Platelet Estimate Large Platelets Puncture Site R rad pCO2 35 pO2 158 H HCO3 23.9 ABG pH 7.42 ABG Total CO2 23.8 ABG O2 Saturation 99.5 H ABG Base Excess -1.3 ABG Hemoglobin 12.1 ABG Carboxyhemoglobin 1.4 POC ABG HHb (Measured) 0.5 ABG Methemoglobin 1.6 Tyrell Test Pos A-a O2 Difference 155.0 Respiratory Index 1.0 Hgb O2 Saturation 96.5 Vent Mode Prvc Mechanical Rate 14 FiO2 50.0 Tidal Volume 450 PEEP 5 Sodium Potassium Chloride Carbon Dioxide Anion Gap BUN Creatinine Est GFR ( Amer) Est GFR (Non-Af Amer) POC Glucose (mg/dL) 173 H 233 H Random Glucose Calcium Phosphorus Magnesium Total Bilirubin AST ALT Alkaline Phosphatase Total Protein Albumin Globulin Albumin/Globulin Ratio Blood Type Antibody Screen 11/05/18 11/05/18 05:54 05:54 WBC 14.5 H RBC 4.02 Hgb 12.1 D Hct 36.1 MCV 89.9 D MCH 30.2 MCHC 33.6 RDW 14.8 H Plt Count 212 MPV 10.5 Neut % (Auto) 87.8 H Lymph % (Auto) 3.7 L [place] % (Auto) 6.9 Eos % (Auto) 0.9 Baso % (Auto) 0.7 Neut # (Auto) 12.7 H Lymph # (Auto) 0.5 L [place] # (Auto) 1.0 H Eos # (Auto) 0.1 Baso # (Auto) 0.1 Neutrophils % (Manual) 86 H Band Neutrophils % 3 H Lymphocytes % (Manual) 4 L Monocytes % (Manual) 7 Eosinophils % (Manual) 1 Platelet Estimate Normal Large Platelets Present Puncture Site pCO2 pO2 HCO3 ABG pH ABG Total CO2 ABG O2 Saturation ABG Base Excess ABG Hemoglobin ABG Carboxyhemoglobin POC ABG HHb (Measured) ABG Methemoglobin Tyrell Test A-a O2 Difference Respiratory Index Hgb O2 Saturation Vent Mode Mechanical Rate FiO2 Tidal Volume PEEP Sodium 139 Potassium 3.9 Chloride 106 Carbon Dioxide 22 Anion Gap 15 BUN 46 H Creatinine 1.0 Est GFR ( Amer) > 60 Est GFR (Non-Af Amer) 53 POC Glucose (mg/dL) Random Glucose 208 H Calcium 8.8 Phosphorus 2.7 Magnesium 1.6 Total Bilirubin 0.4 AST 30 ALT 9 D Alkaline Phosphatase 50 Total Protein 6.4 Albumin 3.7 Globulin 2.7 Albumin/Globulin Ratio 1.4 Blood Type Antibody Screen Radiology Impressions: Radiology Impressions Chest X-Ray 11/04/18 16:07 IMPRESSION: Interval retraction of the prior endotracheal tube tip now at the level of the superior aortic arch. Position appears satisfactory. Interval increase conspicuity/greater appreciated in of a vague approximately 10 mm nodular opacity projecting over the left mid to lower lung zone-a left pulmonary neoplasm is the diagnosis of exclusion. This is not clearly identified as such on the [address] study. [address] of the chest for further clarification. Comments: Study marked for PA review . Chest X-Ray 11/05/18 06:48 IMPRESSION: Endotracheal tube is not significantly changed in position. No interval acute cardiopulmonary disease appreciable. Fingerstick Blood Sugar Results: 223 Review of Systems - Review of Systems All systems: reviewed and no additional remarkable complaints except Assessment/Plan - Assessment and Plan (Free Text) Assessment: Post-op ICU monitoring for 88 y/o F c/o hematemeis s/p EGD, intubated Pulm S/p EGD, intubated on vent -Maintain spO2> 92% -Extubated, tolerating nasal sondra GI GI Bleed/hematemesis -GI, Dr. Heaton -S/p EGD with clot evacuation and epi -Post-op ICU monitoring -Protnix ggt -Reglan 10 IV Q6 -NS @ 80 -Q8 CBC - monitor HGB -No signs of active bleeding -S/p repeat EGD with bx --Patient extubated, tolerating NC --F/u path PPx -VTE ppx c/i 2/2 GIB. SCDs -Protonix ip -Propofol drip Assessment and plan d/w Dr. Da Villarreal, PGY-1 <Gustavo Roberson S - Last Filed: 11/05/18 17:27> CCU Subjective - Physician Review Critical Care Time Spent (in minutes): 45 CCU Objective - Vital Signs / Intake & Output Vital Signs (Last 4 hours): Vital Signs Temp Pulse Resp BP Pulse Ox 11/05/18 17:07 103 H 14 178/90 H 99 11/05/18 17:04 106 H 19 173/82 H 99 11/05/18 17:01 101 H 18 168/84 H 98 11/05/18 17:00 107 H 22 98 11/05/18 16:58 105 H 22 169/82 H 11/05/18 16:55 104 H 20 170/85 H 11/05/18 16:52 103 H 21 165/81 H 11/05/18 16:49 102 H 21 168/86 H 11/05/18 16:46 108 H 22 173/87 H 11/05/18 16:45 106 H 22 99 11/05/18 16:43 105 H 18 170/81 H 11/05/18 16:40 114 H 16 177/87 H 97 11/05/18 16:37 100 H 19 170/89 H 11/05/18 16:34 105 H 20 173/87 H 11/05/18 16:31 107 H 19 173/87 H 11/05/18 16:30 104 H 21 100 11/05/18 16:28 108 H 15 173/90 H 100 11/05/18 16:25 111 H 16 169/89 H 100 11/05/18 16:22 109 H 14 165/85 H 11/05/18 16:19 102 H 18 170/85 H 11/05/18 16:16 96 H 14 169/75 H 11/05/18 16:15 100 H 14 99 11/05/18 16:13 100 H 14 166/74 H 11/05/18 16:10 100 H 14 164/80 H 11/05/18 16:07 96 H 14 162/78 H 100 11/05/18 16:04 98 H 14 159/80 H 100 11/05/18 16:01 92 H 14 141/75 100 11/05/18 16:00 100 F H 100 11/05/18 13:35 98.6 F 111 H 12 151/68 H 100 Intake and Output (Last 8hrs): Intake & Output 11/05/18 11/05/18 11/05/18 06:59 14:59 22:59 Intake Total 784.6 443.0 24.5 Output Total 300 0 0 Balance 484.6 443.0 24.5 Weight 119 lb 14.903 oz Intake: IV 200 300.0 Intake, IV Amount 259.6 143.0 24.5 Right Forearm 179.6 63.0 4.5 Right Upper arm 80 80 20 Blood Product 325 Red Blood Cells Cpd As1 325 Lr Unit [id number] Output: Urine 300 Urine, Voided 300 Emesis 0 0 Other: # Bowel Movements 0 0 - Medications Active Medications: Active Medications Generic Name Dose Route Start Last Admin Trade Name Freq PRN Reason Stop Dose Admin Pantoprazole Sodium 80 mg/ 100 mls @ 10 mls/hr 11/04/18 16:45 11/05/18 12:59 Sodium Chloride IVPB Not Given .Q10H ALEXIS 8 MG/HR Propofol 1,000 mg in 100 mls @ 1.8 mls/hr 11/04/18 19:54 11/05/18 13:05 Diprivan IV 25 mcg/kg/min .Q24H PRN 9 mls/hr TITRATE PER MD ORDER Administration Protocol 5 MCG/KG/MIN Metoclopramide HCl 10 mg 11/04/18 18:00 11/05/18 13:00 Reglan IVP 10 mg Q6 ALEXIS Administration Midazolam HCl 2 mg 11/04/18 14:21 Versed Inj IVP ONCE PRN Agitation/Restlessness - Patient Studies Lab Studies: Lab Studies 11/05/18 11/05/18 11/05/18 Range/Units 05:54 05:54 05:53 WBC 14.5 H (4.8-10.8) K/uL RBC 4.02 (3.80-5.20) Mil/uL Hgb 12.1 D (11.0-16.0) g/dL Hct 36.1 (34.0-47.0) % MCV 89.9 D (81.0-99.0) fL MCH 30.2 (27.0-31.0) pg MCHC 33.6 (33.0-37.0) g/dL RDW 14.8 H (11.5-14.5) % Plt Count 212 (130-400) K/uL MPV 10.5 (7.2-11.7) fL Neut % (Auto) 87.8 H (50.0-75.0) % Lymph % (Auto) 3.7 L (20.0-40.0) % [place] % (Auto) 6.9 (0.0-10.0) % Eos % (Auto) 0.9 (0.0-4.0) % Baso % (Auto) 0.7 (0.0-2.0) % Neut # (Auto) 12.7 H (1.8-7.0) K/uL Lymph # (Auto) 0.5 L (1.0-4.3) K/uL [place] # (Auto) 1.0 H (0.0-0.8) K/uL Eos # (Auto) 0.1 (0.0-0.7) K/uL Baso # (Auto) 0.1 (0.0-0.2) K/uL Neutrophils % (Manual) 86 H (50-75) % Band Neutrophils % 3 H (0-2) % Lymphocytes % (Manual) 4 L (20-40) % Monocytes % (Manual) 7 (0-10) % Eosinophils % (Manual) 1 (0-4) % Platelet Estimate Normal (NORMAL) Large Platelets Present Puncture Site pCO2 (35-45) mm/Hg pO2 (80-100) mm/Hg HCO3 (21-28) mmol/L ABG pH (7.35-7.45) ABG Total CO2 (22-28) mmol/L ABG O2 Saturation (95-98) % ABG Base Excess (-2.0-3.0) mmol/L ABG Hemoglobin (11.7-17.4) g/dL ABG Carboxyhemoglobin (0.5-1.5) % POC ABG HHb (Measured) (0.0-5.0) % ABG Methemoglobin (0.0-3.0) % Tyrell Test A-a O2 Difference mm/Hg Respiratory Index Hgb O2 Saturation (95.0-98.0) % Vent Mode Mechanical Rate FiO2 % Tidal Volume PEEP Sodium 139 (132-148) mmol/L Potassium 3.9 (3.6-5.2) mmol/L Chloride 106 (98-107) mmol/L Carbon Dioxide 22 (22-30) mmol/L Anion Gap 15 (10-20) BUN 46 H (7-17) mg/dL Creatinine 1.0 (0.7-1.2) mg/dL Est GFR ( Amer) > 60 Est GFR (Non-Af Amer) 53 POC Glucose (mg/dL) 233 H (65-110) mg/dL Random Glucose 208 H (65-105) mg/dL Calcium 8.8 (8.6-10.4) mg/dl Phosphorus 2.7 (2.5-4.5) mg/dL Magnesium 1.6 (1.6-2.3) mg/dL Total Bilirubin 0.4 (0.2-1.3) mg/dL AST 30 (14-36) U/L ALT 9 D (9-52) U/L Alkaline Phosphatase 50 (38-126) U/L Total Protein 6.4 (6.3-8.3) g/dL Albumin 3.7 (3.5-5.0) g/dL Globulin 2.7 (2.2-3.9) gm/dL Albumin/Globulin Ratio 1.4 (1.0-2.1) Blood Type Antibody Screen 11/05/18 11/04/18 11/04/18 Range/Units 05:00 23:38 18:17 WBC (4.8-10.8) K/uL RBC (3.80-5.20) Mil/uL Hgb (11.0-16.0) g/dL Hct (34.0-47.0) % MCV (81.0-99.0) fL MCH (27.0-31.0) pg MCHC (33.0-37.0) g/dL RDW (11.5-14.5) % Plt Count (130-400) K/uL MPV (7.2-11.7) fL Neut % (Auto) (50.0-75.0) % Lymph % (Auto) (20.0-40.0) % [place] % (Auto) (0.0-10.0) % Eos % (Auto) (0.0-4.0) % Baso % (Auto) (0.0-2.0) % Neut # (Auto) (1.8-7.0) K/uL Lymph # (Auto) (1.0-4.3) K/uL [place] # (Auto) (0.0-0.8) K/uL Eos # (Auto) (0.0-0.7) K/uL Baso # (Auto) (0.0-0.2) K/uL Neutrophils % (Manual) (50-75) % Band Neutrophils % (0-2) % Lymphocytes % (Manual) (20-40) % Monocytes % (Manual) (0-10) % Eosinophils % (Manual) (0-4) % Platelet Estimate (NORMAL) Large Platelets Puncture Site R rad pCO2 35 (35-45) mm/Hg pO2 158 H (80-100) mm/Hg HCO3 23.9 (21-28) mmol/L ABG pH 7.42 (7.35-7.45) ABG Total CO2 23.8 (22-28) mmol/L ABG O2 Saturation 99.5 H (95-98) % ABG Base Excess -1.3 (-2.0-3.0) mmol/L ABG Hemoglobin 12.1 (11.7-17.4) g/dL ABG Carboxyhemoglobin 1.4 (0.5-1.5) % POC ABG HHb (Measured) 0.5 (0.0-5.0) % ABG Methemoglobin 1.6 (0.0-3.0) % Tyrell Test Pos A-a O2 Difference 155.0 mm/Hg Respiratory Index 1.0 Hgb O2 Saturation 96.5 (95.0-98.0) % Vent Mode Prvc Mechanical Rate 14 FiO2 50.0 % Tidal Volume 450 PEEP 5 Sodium (132-148) mmol/L Potassium (3.6-5.2) mmol/L Chloride (98-107) mmol/L Carbon Dioxide (22-30) mmol/L Anion Gap (10-20) BUN (7-17) mg/dL Creatinine (0.7-1.2) mg/dL Est GFR ( Amer) Est GFR (Non-Af Amer) POC Glucose (mg/dL) 173 H 192 H (65-110) mg/dL Random Glucose (65-105) mg/dL Calcium (8.6-10.4) mg/dl Phosphorus (2.5-4.5) mg/dL Magnesium (1.6-2.3) mg/dL Total Bilirubin (0.2-1.3) mg/dL AST (14-36) U/L ALT (9-52) U/L Alkaline Phosphatase (38-126) U/L Total Protein (6.3-8.3) g/dL Albumin (3.5-5.0) g/dL Globulin (2.2-3.9) gm/dL Albumin/Globulin Ratio (1.0-2.1) Blood Type Antibody Screen 11/04/18 11/04/18 Range/Units 17:27 10:59 WBC 10.3 (4.8-10.8) K/uL RBC 2.82 L (3.80-5.20) Mil/uL Hgb 8.6 L D (11.0-16.0) g/dL Hct 26.1 L (34.0-47.0) % MCV 92.4 (81.0-99.0) fL MCH 30.4 (27.0-31.0) pg MCHC 32.9 L (33.0-37.0) g/dL RDW 13.9 (11.5-14.5) % Plt Count 217 (130-400) K/uL MPV 10.1 (7.2-11.7) fL Neut % (Auto) 72.4 (50.0-75.0) % Lymph % (Auto) 13.2 L (20.0-40.0) % [place] % (Auto) 10.8 H (0.0-10.0) % Eos % (Auto) 2.6 (0.0-4.0) % Baso % (Auto) 1.0 (0.0-2.0) % Neut # (Auto) 7.5 H (1.8-7.0) K/uL Lymph # (Auto) 1.4 (1.0-4.3) K/uL [place] # (Auto) 1.1 H (0.0-0.8) K/uL Eos # (Auto) 0.3 (0.0-0.7) K/uL Baso # (Auto) 0.1 (0.0-0.2) K/uL Neutrophils % (Manual) (50-75) % Band Neutrophils % (0-2) % Lymphocytes % (Manual) (20-40) % Monocytes % (Manual) (0-10) % Eosinophils % (Manual) (0-4) % Platelet Estimate (NORMAL) Large Platelets Puncture Site pCO2 (35-45) mm/Hg pO2 (80-100) mm/Hg HCO3 (21-28) mmol/L ABG pH (7.35-7.45) ABG Total CO2 (22-28) mmol/L ABG O2 Saturation (95-98) % ABG Base Excess (-2.0-3.0) mmol/L ABG Hemoglobin (11.7-17.4) g/dL ABG Carboxyhemoglobin (0.5-1.5) % POC ABG HHb (Measured) (0.0-5.0) % ABG Methemoglobin (0.0-3.0) % Tyrell Test A-a O2 Difference mm/Hg Respiratory Index Hgb O2 Saturation (95.0-98.0) % Vent Mode Mechanical Rate FiO2 % Tidal Volume PEEP Sodium (132-148) mmol/L Potassium (3.6-5.2) mmol/L Chloride (98-107) mmol/L Carbon Dioxide (22-30) mmol/L Anion Gap (10-20) BUN (7-17) mg/dL Creatinine (0.7-1.2) mg/dL Est GFR ( Amer) Est GFR (Non-Af Amer) POC Glucose (mg/dL) (65-110) mg/dL Random Glucose (65-105) mg/dL Calcium (8.6-10.4) mg/dl Phosphorus (2.5-4.5) mg/dL Magnesium (1.6-2.3) mg/dL Total Bilirubin (0.2-1.3) mg/dL AST (14-36) U/L ALT (9-52) U/L Alkaline Phosphatase (38-126) U/L Total Protein (6.3-8.3) g/dL Albumin (3.5-5.0) g/dL Globulin (2.2-3.9) gm/dL Albumin/Globulin Ratio (1.0-2.1) Blood Type O POSITIVE Antibody Screen Negative Laboratory Results - last 24 hr 11/04/18 11/04/18 11/04/18 10:59 17:27 18:17 WBC 10.3 RBC 2.82 L Hgb 8.6 L D Hct 26.1 L MCV 92.4 MCH 30.4 MCHC 32.9 L RDW 13.9 Plt Count 217 MPV 10.1 Neut % (Auto) 72.4 Lymph % (Auto) 13.2 L [place] % (Auto) 10.8 H Eos % (Auto) 2.6 Baso % (Auto) 1.0 Neut # (Auto) 7.5 H Lymph # (Auto) 1.4 [place] # (Auto) 1.1 H Eos # (Auto) 0.3 Baso # (Auto) 0.1 Neutrophils % (Manual) Band Neutrophils % Lymphocytes % (Manual) Monocytes % (Manual) Eosinophils % (Manual) Platelet Estimate Large Platelets Puncture Site pCO2 pO2 HCO3 ABG pH ABG Total CO2 ABG O2 Saturation ABG Base Excess ABG Hemoglobin ABG Carboxyhemoglobin POC ABG HHb (Measured) ABG Methemoglobin [place]rell Test A-a O2 Difference Respiratory Index Hgb O2 Saturation Vent Mode Mechanical Rate FiO2 Tidal Volume PEEP Sodium Potassium Chloride Carbon Dioxide Anion Gap BUN Creatinine Est GFR ( Amer) Est GFR (Non-Af Amer) POC Glucose (mg/dL) 192 H Random Glucose Calcium Phosphorus Magnesium Total Bilirubin AST ALT Alkaline Phosphatase Total Protein Albumin Globulin Albumin/Globulin Ratio Blood Type O POSITIVE Antibody Screen Negative 11/04/18 11/05/18 11/05/18 23:38 05:00 05:53 WBC RBC Hgb Hct MCV MCH MCHC RDW Plt Count MPV Neut % (Auto) Lymph % (Auto) [place] % (Auto) Eos % (Auto) Baso % (Auto) Neut # (Auto) Lymph # (Auto) [place] # (Auto) Eos # (Auto) Baso # (Auto) Neutrophils % (Manual) Band Neutrophils % Lymphocytes % (Manual) Monocytes % (Manual) Eosinophils % (Manual) Platelet Estimate Large Platelets Puncture Site R rad pCO2 35 pO2 158 H HCO3 23.9 ABG pH 7.42 ABG Total CO2 23.8 ABG O2 Saturation 99.5 H ABG Base Excess -1.3 ABG Hemoglobin 12.1 ABG Carboxyhemoglobin 1.4 POC ABG HHb (Measured) 0.5 ABG Methemoglobin 1.6 [place] Test Pos A-a O2 Difference 155.0 Respiratory Index 1.0 Hgb O2 Saturation 96.5 Vent Mode Prvc Mechanical Rate 14 FiO2 50.0 Tidal Volume 450 PEEP 5 Sodium Potassium Chloride Carbon Dioxide Anion Gap BUN Creatinine Est GFR ( Amer) Est GFR (Non-Af Amer) POC Glucose (mg/dL) 173 H 233 H Random Glucose Calcium Phosphorus Magnesium Total Bilirubin AST ALT Alkaline Phosphatase Total Protein Albumin Globulin Albumin/Globulin Ratio Blood Type Antibody Screen 11/05/18 11/05/18 05:54 05:54 WBC 14.5 H RBC 4.02 Hgb 12.1 D Hct 36.1 MCV 89.9 D MCH 30.2 MCHC 33.6 RDW 14.8 H Plt Count 212 MPV 10.5 Neut % (Auto) 87.8 H Lymph % (Auto) 3.7 L [place] % (Auto) 6.9 Eos % (Auto) 0.9 Baso % (Auto) 0.7 Neut # (Auto) 12.7 H Lymph # (Auto) 0.5 L [place] # (Auto) 1.0 H Eos # (Auto) 0.1 Baso # (Auto) 0.1 Neutrophils % (Manual) 86 H Band Neutrophils % 3 H Lymphocytes % (Manual) 4 L Monocytes % (Manual) 7 Eosinophils % (Manual) 1 Platelet Estimate Normal Large Platelets Present Puncture Site pCO2 pO2 HCO3 ABG pH ABG Total CO2 ABG O2 Saturation ABG Base Excess ABG Hemoglobin ABG Carboxyhemoglobin POC ABG HHb (Measured) ABG Methemoglobin [place] Test A-a O2 Difference Respiratory Index Hgb O2 Saturation Vent Mode Mechanical Rate FiO2 Tidal Volume PEEP Sodium 139 Potassium 3.9 Chloride 106 Carbon Dioxide 22 Anion Gap 15 BUN 46 H Creatinine 1.0 Est GFR ( Amer) > 60 Est GFR (Non-Af Amer) 53 POC Glucose (mg/dL) Random Glucose 208 H Calcium 8.8 Phosphorus 2.7 Magnesium 1.6 Total Bilirubin 0.4 AST 30 ALT 9 D Alkaline Phosphatase 50 Total Protein 6.4 Albumin 3.7 Globulin 2.7 Albumin/Globulin Ratio 1.4 Blood Type Antibody Screen Radiology Impressions: Radiology Impressions Chest X-Ray 11/05/18 06:48 IMPRESSION: Endotracheal tube is not significantly changed in position. No interval acute cardiopulmonary disease appreciable. Attending/Attestation - Attestation I have personally seen and examined this patient.: Yes I have fully participated in the care of the patient.: Yes I have reviewed all pertinent clinical information: Yes Notes (Text): 11/05/18 17:25 Patient seen and examined in the intensive care unit. Case discussed with housestaff in the morning rounds. Repeat EGD consistent with gastritis, gastric and duodenal ulcer with no active bleeding Patient extubated after weaning trial Continue Protonix Follow-up CBC Controlled hypertension
[2018-11-05] MEDS ORDERED: Labetalol 5mg/ml (4ml) IVP STA (17:30)
--- NOTE | 2018-11-05 20:37 | CP.PCM.HP ---
History of Present Illness - History of Present Illness History of Present Illness: 88-year-old female with history of hypertension history of hyperlipidemia history of diabetes a history of noncompliance with the follow-up history of osteoarthritis of the knee came to the emergency room with the hematuria hematemesis abdominal pain Patient's daughter called me earlier today that patient's vomited small amount of blood advised to bring her to the emergency room patient's came to the emergency room gradually worsened after second episode of hematemesis where she experienced a severe abdominal pain all over especially in the lower side sharp nonradiating with the vomiting eventually patient admitted after the ICU work-up with ICU patient claims that she was taking Excedrin before patient had a history of GI episode in the past patient eventually seen by ICU accepted to the ICU Patient is also seen by the GI team for endoscopy and coloscopy Patient got worsened eventually patient is intubated Seen by GI Patient had already EGD done Family bedside EGD revealed active bleeding and clots in the fundus which were injected with epinephrine all the history obtained from the his family and HR notesPMHx: Anxiety, Arthritis, CAD, Cardia Arrhythmia, Diabetes, HTN, Hypercholesterolemia, Osteoporosis PSHx: denies Family hx: denies any hx of GI related malignancies Social hx: denies nay smoking, illicit drug use, or alcohol use ROS: 12 point ROS conducted, neg other than above/unobtainbale as pt is intubat ed Present on Admission - Present on Admission Any Indicators Present on Admission: No Past Patient History - Infectious Disease Hx of Infectious Diseases: None - Past Medical History & Family History Past Medical History?: Yes - Past Social History Smoking Status: Never Smoked - CARDIAC Hx Cardia Arrhythmia: Yes Hx Hypercholesterolemia: Yes Hx Hypertension: Yes - PULMONARY Hx Respiratory Disorders: No - NEUROLOGICAL Hx Neurological Disorder: No - HEENT Hx HEENT Problems: No - RENAL Hx Chronic Kidney Disease: No - ENDOCRINE/METABOLIC Hx Endocrine Disorders: Yes Hx Diabetes Mellitus Type 2: Yes - HEMATOLOGICAL/ONCOLOGICAL Hx Blood Disorders: No - INTEGUMENTARY Hx Dermatological Problems: No - MUSCULOSKELETAL/RHEUMATOLOGICAL Hx Arthritis: Yes Hx Osteoporosis: Yes - GASTROINTESTINAL Hx Gastrointestinal Disorders: Yes Other/Comment: HX. GI BLEEDING - GENITOURINARY/GYNECOLOGICAL Hx Genitourinary Disorders: No - PSYCHIATRIC Hx Anxiety: Yes Hx Substance Use: No - SURGICAL HISTORY Hx Surgeries: Yes Hx Section: Yes Hx Orthopedic Surgery: Yes (Right ankle, Left shoulder.) - ANESTHESIA Hx Anesthesia: Yes Hx Anesthesia Reactions: No Hx Malignant Hyperthermia: No Meds Home Medications: Home Medication List Medication Instructions Recorded Confirmed Type Acetaminophen [Tylenol 325mg tab] 650 mg PO Q6 PRN tab 11/12/18 Rx Carvedilol [Coreg] 6.25 mg PO BID tab 11/12/18 Rx Ferrous Gluconate [Fergon] 324 mg PO TID tab 11/12/18 Rx Insulin Human Regular [Novolin R] 0 unit SC ACHS unit 11/12/18 Rx Lactulose [Enulose] 20 gm PO ONCE udc 11/12/18 Rx Pantoprazole [Protonix EC Tab] 40 mg PO Q12H ect 11/12/18 Rx Pantoprazole [Protonix Inj] 40 mg IVP Q12H vial 11/12/18 Rx Phosphorus/Potassium/Sodium 1 pkt PO TID packet 11/12/18 Rx [Neutra-Phos] Sucralfate [Carafate Oral Susp] 1 gm PO QID udc 11/12/18 Rx Vitamin B Complex/Vit C/Folic 1 tab PO 0800 tab 11/12/18 Rx [Nephro-Zari] Allergies/Adverse Reactions: Allergies Allergy/AdvReac Type Severity Reaction Status Date / Time No Known Allergies Allergy Verified 06/30/17 11:42 Physical Exam - Constitutional Appears: Well - Head Exam Head Exam: ATRAUMATIC, NORMAL INSPECTION, NORMOCEPHALIC - Eye Exam Eye Exam: EOMI, Normal appearance, PERRL Pupil Exam: NORMAL ACCOMODATION, PERRL - ENT Exam ENT Exam: Mucous Membranes Moist, Normal Exam - Neck Exam Neck exam: Positive for: Normal Inspection - Respiratory Exam Respiratory Exam: Decreased Breath Sounds - Cardiovascular Exam Cardiovascular Exam: REGULAR RHYTHM, +S1, +S2 - GI/Abdominal Exam GI & Abdominal Exam: Diminished Bowel Sounds, Soft - Rectal Exam Rectal Exam: Deferred - Neurological Exam Neurological exam: Oriented x3 Results - Vital Signs Recent Vital Signs: Last Vital Signs Temp 100 F H 11/05/18 16:00 Pulse 85 11/05/18 18:45 Resp 24 11/05/18 18:45 BP 129/70 11/05/18 18:43 Pulse Ox 97 11/05/18 18:45 - Labs Result Diagrams: 11/11/18 07:51 11/12/18 08:39 Labs: Laboratory Results - last 24 hr 11/04/18 11/04/18 11/04/18 10:59 18:17 23:38 WBC RBC Hgb Hct MCV MCH MCHC RDW Plt Count MPV Neut % (Auto) Lymph % (Auto) Gates % (Auto) Eos % (Auto) Baso % (Auto) Neut # (Auto) Lymph # (Auto) Gates # (Auto) Eos # (Auto) Baso # (Auto) Neutrophils % (Manual) Band Neutrophils % Lymphocytes % (Manual) Monocytes % (Manual) Eosinophils % (Manual) Platelet Estimate Large Platelets Puncture Site pCO2 pO2 HCO3 ABG pH ABG Total CO2 ABG O2 Saturation ABG Base Excess ABG Hemoglobin ABG Carboxyhemoglobin POC ABG HHb (Measured) ABG Methemoglobin Tyrell Test A-a O2 Difference Respiratory Index Hgb O2 Saturation Vent Mode Mechanical Rate FiO2 Tidal Volume PEEP Sodium Potassium Chloride Carbon Dioxide Anion Gap BUN Creatinine Est GFR ( Amer) Est GFR (Non-Af Amer) POC Glucose (mg/dL) 192 H 173 H Random Glucose Calcium Phosphorus Magnesium Total Bilirubin AST ALT Alkaline Phosphatase Total Protein Albumin Globulin Albumin/Globulin Ratio Blood Type O POSITIVE Antibody Screen Negative 11/05/18 11/05/18 11/05/18 05:00 05:53 05:54 WBC 14.5 H RBC 4.02 Hgb 12.1 D Hct 36.1 MCV 89.9 D MCH 30.2 MCHC 33.6 RDW 14.8 H Plt Count 212 MPV 10.5 Neut % (Auto) 87.8 H Lymph % (Auto) 3.7 L Gates % (Auto) 6.9 Eos % (Auto) 0.9 Baso % (Auto) 0.7 Neut # (Auto) 12.7 H Lymph # (Auto) 0.5 L Gates # (Auto) 1.0 H Eos # (Auto) 0.1 Baso # (Auto) 0.1 Neutrophils % (Manual) 86 H Band Neutrophils % 3 H Lymphocytes % (Manual) 4 L Monocytes % (Manual) 7 Eosinophils % (Manual) 1 Platelet Estimate Normal Large Platelets Present Puncture Site R rad pCO2 35 pO2 158 H HCO3 23.9 ABG pH 7.42 ABG Total CO2 23.8 ABG O2 Saturation 99.5 H ABG Base Excess -1.3 ABG Hemoglobin 12.1 ABG Carboxyhemoglobin 1.4 POC ABG HHb (Measured) 0.5 ABG Methemoglobin 1.6 Tyrell Test Pos A-a O2 Difference 155.0 Respiratory Index 1.0 Hgb O2 Saturation 96.5 Vent Mode Prvc Mechanical Rate 14 FiO2 50.0 Tidal Volume 450 PEEP 5 Sodium Potassium Chloride Carbon Dioxide Anion Gap BUN Creatinine Est GFR ( Amer) Est GFR (Non-Af Amer) POC Glucose (mg/dL) 233 H Random Glucose Calcium Phosphorus Magnesium Total Bilirubin AST ALT Alkaline Phosphatase Total Protein Albumin Globulin Albumin/Globulin Ratio Blood Type Antibody Screen 11/05/18 05:54 WBC RBC Hgb Hct MCV MCH MCHC RDW Plt Count MPV Neut % (Auto) Lymph % (Auto) Gates % (Auto) Eos % (Auto) Baso % (Auto) Neut # (Auto) Lymph # (Auto) Gates # (Auto) Eos # (Auto) Baso # (Auto) Neutrophils % (Manual) Band Neutrophils % Lymphocytes % (Manual) Monocytes % (Manual) Eosinophils % (Manual) Platelet Estimate Large Platelets Puncture Site pCO2 pO2 HCO3 ABG pH ABG Total CO2 ABG O2 Saturation ABG Base Excess ABG Hemoglobin ABG Carboxyhemoglobin POC ABG HHb (Measured) ABG Methemoglobin Tyrell Test A-a O2 Difference Respiratory Index Hgb O2 Saturation Vent Mode Mechanical Rate FiO2 Tidal Volume PEEP Sodium 139 Potassium 3.9 Chloride 106 Carbon Dioxide 22 Anion Gap 15 BUN 46 H Creatinine 1.0 Est GFR ( Amer) > 60 Est GFR (Non-Af Amer) 53 POC Glucose (mg/dL) Random Glucose 208 H Calcium 8.8 Phosphorus 2.7 Magnesium 1.6 Total Bilirubin 0.4 AST 30 ALT 9 D Alkaline Phosphatase 50 Total Protein 6.4 Albumin 3.7 Globulin 2.7 Albumin/Globulin Ratio 1.4 Blood Type Antibody Screen Assessment & Plan (1) GI bleed Status: Acute (2) Gastrointestinal hemorrhage Status: Acute (3) Abdominal pain Status: Acute (4) Abdominal pain Status: Acute (5) Arthritis Status: Acute (6) Arthritis Status: Acute (7) Atrial fibrillation Status: Acute (8) Chest injury Status: Acute (9) Chest pain Status: Acute (10) Constipation Status: Acute (11) Contusion Status: Acute (12) Degenerative arthritis Status: Acute (13) Diarrhea Status: Acute (14) Gastritis Status: Acute (15) Grief at loss of child Status: Acute (16) Hematemesis Status: Acute (17) Hyperglycemia Status: Acute (18) Hypoglycemia Status: Acute (19) Hypoglycemic reaction to insulin Status: Acute (20) Hypothermia Status: Acute (21) Joint swelling Status: Acute (22) Leg pain, bilateral Status: Acute (23) Nausea Status: Acute (24) Rib fracture Status: Acute (25) Shoulder pain Status: Acute (26) Thoracic back pain Status: Acute (27) Vasovagal near syncope Status: Acute - Assessment and Plan (Free Text) Plan: Status post EGD Vital signs 151/68 bulb blood pressure pulse 111 Patient is intubated Output is 300 so far Continue propofol Continue IV Protonix Reglan Versed Hemoglobin to 12.1 after transfusion WBC 14.5 Creatinine 1.0 BUN 46 which is secondary to GI bleeding Potassium 3.9 Sodium 139 GI consult [employer] Operator is follow-up Discussed with the family Moderate to high complexity of care. Plan of care discussed with patient &/or family & staff. Medications reviewed and reconciled. Labs reviewed. Vitals reviewed.
[2018-11-06 06:11] LABS: BASO # 0.1 K/uL (0.0-0.2); BASO % 0.5 % (0.0-2.0); EOS # 0.1 K/uL (0.0-0.7); EOS % 0.6 % (0.0-4.0); HEMOGLOBIN 11.4 g/dL (11.0-16.0); LYMPH # 0.9 K/uL (1.0-4.3); LYMPH % 5.3 % (20.0-40.0); MEAN CELL VOLUME 90.6 fL (81.0-99.0); MEAN CORPUSCULAR HEMOGLOBIN 29.8 pg (27.0-31.0); MEAN CORPUSCULAR HGB CONC 32.9 g/dL (33.0-37.0); MEAN PLATELET VOLUME 10.1 fL (7.2-11.7); MONO # 1.4 K/uL (0.0-0.8); MONO % 8.5 % (0.0-10.0); NEUT # 14.1 K/uL (1.8-7.0); NEUT % 85.1 % (50.0-75.0); PLATELET COUNT 169 K/uL (130-400); RBC 3.83 Mil/uL (3.80-5.20); RED CELL DISTRIBUTION WIDTH 14.6 % (11.5-14.5); WHITE BLOOD COUNT 16.5 K/uL (4.8-10.8)
[2018-11-06 06:56] LABS: ALB/GLOB RATIO 1.4 (1.0-2.1); ALBUMIN 3.8 g/dL (3.5-5.0); CALCIUM 9.3 mg/dl (8.6-10.4)
[2018-11-06 08:27] LABS: BANDS 6 % (0-2); EOSINOPHIL 1 % (0-4); LARGE PLATELETS PRESENT; LYMPHOCYTE 10 % (20-40); MONOCYTE 3 % (0-10); NEUTROPHIL 80 % (50-75); PLATELET ESTIMATE NORMAL (NORMAL); TOTAL CELLS COUNTED 100
[2018-11-06] MEDS: Pantoprazole 80 MG in Sodium Chloride 0.9% 100 ML IVPB SCH ×3 (08:27→21:18)
--- NOTE | 2018-11-06 08:57 | CP.PCM.PN ---
Subjective - Date & Time of Evaluation Date of Evaluation: 11/06/18 Time of Evaluation: 08:15 - Subjective Subjective: GI Fellow PGY5 Consult Note Pt seen and examined at bedside, pt looks weak and pale. Denies any abdominal pain, fevers or chills. Complains of dry mouth and wants to drink liquids. Pt was given IV Torodol for knee pain yesterday. No further hematemesis, melena or hematochezia ROS: A 12pt ROS was negative except as above. Objective - Vital Signs/Intake and Output Vital Signs (last 24 hours): Temp Pulse Resp BP Pulse Ox 98 F 87 19 133/58 L 100 11/06/18 04:00 11/06/18 08:00 11/06/18 08:00 11/06/18 07:42 11/06/18 08:00 Intake and Output: 11/06/18 11/06/18 06:59 18:59 Intake Total 120 20 Output Total 450 Balance 120 -430 - Medications Medications: Current Medications Pantoprazole Sodium 80 mg/ (Sodium Chloride) 100 mls @ 10 mls/hr IVPB .Q10H [facility] Last Admin: 11/06/18 08:27 Dose: 10 mls/hr Propofol (Diprivan) 1,000 mg in 100 mls @ 1.8 mls/hr IV .Q24H PRN; Protocol PRN Reason: TITRATE PER MD ORDER Last Admin: 11/05/18 13:05 Dose: 25 mcg/kg/min, 9 mls/hr Metoclopramide HCl (Reglan) 10 mg IVP Q6 [facility] Last Admin: 11/06/18 05:37 Dose: 10 mg Midazolam HCl (Versed Inj) 2 mg IVP ONCE PRN PRN Reason: Agitation/Restlessness - Labs Labs: 11/06/18 06:06 11/06/18 06:06 PT 13.7 SECONDS (9.7-12.2) H 11/04/18 12:20 INR 1.3 11/04/18 12:20 - Constitutional Appears: Non-toxic, No Acute Distress - Head Exam Head Exam: ATRAUMATIC, NORMAL INSPECTION, NORMOCEPHALIC - Eye Exam Eye Exam: EOMI, Normal appearance, PERRL - ENT Exam ENT Exam: Mucous Membranes Dry - Neck Exam Neck Exam: Full ROM, Normal Inspection - Respiratory Exam Respiratory Exam: Clear to Ausculation Bilateral, NORMAL BREATHING PATTERN - Cardiovascular Exam Cardiovascular Exam: REGULAR RHYTHM, RRR, +S1, +S2 - GI/Abdominal Exam GI & Abdominal Exam: Soft, Normal Bowel Sounds. absent: Distended, Firm, Guarding, Tenderness, Organomegaly - Rectal Exam Rectal Exam: Deferred - Back Exam Back Exam: NORMAL INSPECTION - Neurological Exam Neurological Exam: Alert, Awake, Oriented x3 - Psychiatric Exam Psychiatric exam: Normal Affect, Normal Mood - Skin Skin Exam: Dry, Intact, Pallor, Pallor, Warm Assessment and Plan - Assessment and Plan (Free Text) Plan: 1. Upper GI Bleed 2. Acute Anemia 3. Gastric and Duodenal Ulcers 4. s/p Mechanical ventilation for airway protection for EGD-extubated 5. Elevated WBC -Pt is s/p two EGDs for Acute Upper Gi Bleed, initially pt found to large blood clots in gastric fundus and hematin, no active bleeding with endoscopic removal of blood clots. Repeat EGD shows no further blood clots, no active bleeding, but multiple large duodenal ulcers and superficial gastric ulcers and severe esophagitis LAGC -Continue IV PPI drip today, can change to IV PPI bid tomorrow and 40mg po bid for 6-8 weeks on discharge -Carafate qid -Pt will need followup EGD in 8 weeks to evaluate ulcer healing -Clear liquid diet, advance diet as tolerated by tomorrow -Monitor H/H and transfuse as needed -Avoid NSAIDS including Torodol for pain with Acute GI Bleed and PUD -Pt with elevated WBC, possible aspiration ? further medical treatment by primary team -Will continue to follow pt closely
[2018-11-06] MEDS: Sucralfate 1 gm/10 ml Oral Susp UD PO SCH ×4 (10:34→21:19)
[2018-11-06] MEDS: (Novolin R) Insulin Human Regular 100 units/ml vial SC SCH ×3 (12:42→21:19)
--- NOTE | 2018-11-06 14:50 | CP.PCM.PN ---
Subjective - Date & Time of Evaluation Date of Evaluation: 11/06/18 Time of Evaluation: 11:56 - Subjective Subjective: patient examined today no nausea no vomitnig no shortness of breath no dizziness no diarrhea no fever Complains of dry mouth and wants to drink liquids. Pt was given IV Torodol for knee pain yesterday. No further hematemesis, melena or hematochezia ROS: A 12pt ROS was negative except as above. Objective - Vital Signs/Intake and Output Vital Signs (last 24 hours): Temp Pulse Resp BP Pulse Ox 99.1 F 92 H 19 115/69 97 11/06/18 14:00 11/06/18 14:00 11/06/18 14:00 11/06/18 14:00 11/06/18 14:00 Intake and Output: 11/06/18 11/06/18 06:59 18:59 Intake Total 120 310 Output Total 650 Balance 120 -340 - Medications Medications: Current Medications Acetaminophen (Tylenol 325mg Tab) 650 mg PO Q6 PRN PRN Reason: Pain, moderate (4-7) Last Admin: 11/06/18 10:15 Dose: 650 mg Pantoprazole Sodium 80 mg/ (Sodium Chloride) 100 mls @ 10 mls/hr IVPB .Q10H [facility] Last Admin: 11/06/18 08:27 Dose: 10 mls/hr Insulin Human Regular (Novolin R) 0 unit SC ACHS [facility]; Protocol Last Admin: 11/06/18 12:42 Dose: 8 u Metoclopramide HCl (Reglan) 10 mg IVP Q6 [facility] Last Admin: 11/06/18 12:44 Dose: 10 mg Midazolam HCl (Versed Inj) 2 mg IVP ONCE PRN PRN Reason: Agitation/Restlessness Sucralfate (Carafate Oral Susp) 1 gm PO QID [facility] Last Admin: 11/06/18 13:39 Dose: 1 gm - Labs Labs: 11/06/18 06:06 11/06/18 06:06 PT 13.7 SECONDS (9.7-12.2) H 11/04/18 12:20 INR 1.3 11/04/18 12:20 - Constitutional Appears: Well - Head Exam Head Exam: ATRAUMATIC, NORMAL INSPECTION, NORMOCEPHALIC - Eye Exam Eye Exam: EOMI, Normal appearance, PERRL Pupil Exam: NORMAL ACCOMODATION, PERRL - ENT Exam ENT Exam: Mucous Membranes Moist, Normal Exam - Neck Exam Neck Exam: Full ROM, Normal Inspection. absent: Lymphadenopathy - Respiratory Exam Respiratory Exam: Decreased Breath Sounds - Cardiovascular Exam Cardiovascular Exam: REGULAR RHYTHM, +S1, +S2 - GI/Abdominal Exam GI & Abdominal Exam: Soft, Diminished Bowel Sounds - Rectal Exam Rectal Exam: Deferred - Neurological Exam Neurological Exam: Oriented x3 Assessment and Plan - Assessment and Plan (Free Text) Plan: plan discussed with patient and family moderate complexity of care medications reviewed carafate oral susp novolinR reglan tylenol versed inj labs and vitals reviewed Standard patient is extubated [id number] no nausea no Vomiting Status post EGD Status post GI Status post IV Toradol Pantoprazole Propofol BUN/creatinine 53 and 2.1 Potassium 4.1 WBC 16.5 Status post 2 EGDs with the large blood clot in the fundus and status post injected with epinephrine Discussed with the staff and family Continue IV PPI drip again continue Carafate EGD in 6 to 8 weeks Family made aware Follow-up with the biopsy report
[2018-11-07] MEDS: Pantoprazole 80 MG in Sodium Chloride 0.9% 100 ML IVPB SCH (05:19)
[2018-11-07 06:31] LABS: BASO # 0.2 K/uL (0.0-0.2); EOS # 0.3 K/uL (0.0-0.7); EOS % 1.7 % (0.0-4.0); HEMOGLOBIN 9.8 g/dL (11.0-16.0); LYMPH # 0.7 K/uL (1.0-4.3); LYMPH % 4.5 % (20.0-40.0); MEAN CELL VOLUME 90.8 fL (81.0-99.0); MEAN CORPUSCULAR HEMOGLOBIN 29.4 pg (27.0-31.0); MEAN CORPUSCULAR HGB CONC 32.3 g/dL (33.0-37.0); MONO # 1.3 K/uL (0.0-0.8); MONO % 7.6 % (0.0-10.0); NEUT % 85.2 % (50.0-75.0); PLATELET COUNT 159 K/uL (130-400); RBC 3.34 Mil/uL (3.80-5.20); RED CELL DISTRIBUTION WIDTH 14.8 % (11.5-14.5); WHITE BLOOD COUNT 16.5 K/uL (4.8-10.8)
[2018-11-07] MEDS: (Novolin R) Insulin Human Regular 100 units/ml vial SC SCH ×4 (08:31→22:03)
[2018-11-07 08:35] LABS: BANDS 1 % (0-2); LYMPHOCYTE 4 % (20-40); MONOCYTE 8 % (0-10); NEUTROPHIL 87 % (50-75); PLATELET ESTIMATE NORMAL (NORMAL); TOTAL CELLS COUNTED 100
[2018-11-07 08:36] LABS: OVALOCYTES SLIGHT
[2018-11-07] MEDS: Sucralfate 1 gm/10 ml Oral Susp UD PO SCH ×4 (09:57→22:03)
--- NOTE | 2018-11-07 14:05 | PN ---
DATE: 11/07/2018 LOCATION: 369. SUBJECTIVE: This is an 88-year-old female post upper endoscopy with biopsy, seen and examined in rounds without reported significant active bleeding, chest pain, palpitation or subsequent increase of shortness of breath, the patient somewhat tolerated oral intake well so far. The entire chart is reviewed including but not limited to the most recent lab and radiology study results, current and previous medication list, current and previous medical events and the most recently done chest x-ray two days ago was suggestive of no active disease despite the patient's leukocytosis. Today's lab results showed white blood cells of 16.5, hemoglobin 9.8, hematocrit 30.4 with normal platelet count, blood glucose level 220. It has to be mentioned that there was subsequent increase of BUN and creatinine indicative of mild renal insufficiency with prerenal azotemia. PHYSICAL EXAMINATION: GENERAL: An 88-year-old female awake, alert, oriented. VITAL SIGNS: Afebrile with pulse of 100, respiratory rate 20-22, blood pressure 140/70. HEENT: Showed pale, dry oral mucous membrane. Nonicteric sclerae. LUNGS: Few scattered crepitation. Decreased air entry at bases. HEART: Positive S1 and S2. ABDOMEN: Soft with mild generalized tenderness. No mass or organomegaly. No rebound tenderness or guarding. EXTREMITIES: Without significant clubbing, cyanosis or edema. No reported new neurological deficits, sensory or motor. IMPRESSION: 1. Recent history of gastrointestinal blood loss of unclear etiology, but with evidence of gastric and duodenal ulcer, not bleeding at the time of the second upper endoscopy. 2. Leukocytosis with possibility of aspiration pneumonia, however, was raised. 3. Prerenal azotemia with dehydration. 4. Anemia most likely secondary to above. SUGGESTIONS: 1. Continue current management. 2. Abdominal as well as pelvic and chest CAT scan to be performed if there is subsequent drop of hemoglobin and hematocrit or/and subsequent increase of her leukocytosis. 3. Followup upper endoscopy after 8 to 10 weeks due to her gastric and duodenal ulcers. 4. We will follow up closely with you. Mami Graham MD
--- NOTE | 2018-11-07 20:10 | CP.PCM.PN ---
Subjective - Date & Time of Evaluation Date of Evaluation: 11/07/18 Time of Evaluation: 13:00 - Subjective Subjective: patient examined today no nausea no vomiting no fever no dizziness no shortness of breath no diarrhea Objective - Vital Signs/Intake and Output Vital Signs (last 24 hours): Temp Pulse Resp BP Pulse Ox 98.9 F 103 H 20 130/70 96 11/07/18 16:00 11/07/18 16:00 11/07/18 16:00 11/07/18 16:00 11/07/18 16:00 - Medications Medications: Current Medications Acetaminophen (Tylenol 325mg Tab) 650 mg PO Q6 PRN PRN Reason: Pain, moderate (4-7) Last Admin: 11/06/18 21:22 Dose: 650 mg Insulin Human Regular (Novolin R) 0 unit SC [facility]; Protocol Last Admin: 11/07/18 17:14 Dose: Not Given Midazolam HCl (Versed Inj) 2 mg IVP ONCE PRN PRN Reason: Agitation/Restlessness Oxycodone HCl (Oxycodone Immediate Release Tab) 5 mg PO Q6 PRN PRN Reason: PAIN, SEVERE 8-10 Pantoprazole Sodium (Protonix Inj) 40 mg IVP Q12H [facility] Last Admin: 11/07/18 17:31 Dose: 40 mg Sucralfate (Carafate Oral Susp) 1 gm PO QID [facility] Last Admin: 11/07/18 17:30 Dose: 1 gm - Labs Labs: 11/07/18 06:22 11/06/18 06:06 PT 13.7 SECONDS (9.7-12.2) H 11/04/18 12:20 INR 1.3 11/04/18 12:20 - Constitutional Appears: Well - Head Exam Head Exam: ATRAUMATIC, NORMAL INSPECTION, NORMOCEPHALIC - Eye Exam Eye Exam: EOMI, Normal appearance, PERRL Pupil Exam: NORMAL ACCOMODATION, PERRL - ENT Exam ENT Exam: Mucous Membranes Moist, Normal Exam - Neck Exam Neck Exam: Full ROM, Normal Inspection. absent: Lymphadenopathy - Respiratory Exam Respiratory Exam: Decreased Breath Sounds - Cardiovascular Exam Cardiovascular Exam: REGULAR RHYTHM, +S1, +S2 - GI/Abdominal Exam GI & Abdominal Exam: Soft, Diminished Bowel Sounds - Rectal Exam Rectal Exam: Deferred - Neurological Exam Neurological Exam: Oriented x3 Assessment and Plan (1) GI bleed Status: Acute (2) Gastrointestinal hemorrhage Status: Acute (3) Abdominal pain Status: Acute (4) Abdominal pain Status: Acute (5) Arthritis Status: Acute (6) Arthritis Status: Acute (7) Atrial fibrillation Status: Acute (8) Chest injury Status: Acute (9) Chest pain Status: Acute (10) Constipation Status: Acute (11) Contusion Status: Acute (12) Degenerative arthritis Status: Acute (13) Diarrhea Status: Acute (14) Gastritis Status: Acute (15) Grief at loss of child Status: Acute (16) Hematemesis Status: Acute (17) Hyperglycemia Status: Acute (18) Hypoglycemia Status: Acute (19) Hypoglycemic reaction to insulin Status: Acute (20) Hypothermia Status: Acute (21) Joint swelling Status: Acute (22) Leg pain, bilateral Status: Acute (23) Nausea Status: Acute (24) Rib fracture Status: Acute (25) Shoulder pain Status: Acute (26) Thoracic back pain Status: Acute (27) Vasovagal near syncope Status: Acute - Assessment and Plan (Free Text) Plan: plan discussed with patient and family moderate complexity of care medications reviewed carafate oral susp novolinR oxycodone protonix tylenol versed inj labs and vitals reviewed Patient's transfer on the floor Hemoglobin 9.8 Creatinine 2.1 WBC 16.5 Discharge planning Family refused the rehab Patient claims she can get up and walk around
[2018-11-07] MEDS: oxyCODONE 5 mg Immediate Release Tab PO PRN (23:45)
[2018-11-08] MEDS: oxyCODONE 5 mg Immediate Release Tab PO PRN ×3 (05:48→23:36)
[2018-11-08] MEDS: metroNIDAZOLE IV 500 mg/100 ml 500 MG/100 ML BAG IVPB SCH ×3 (06:58→21:58)
[2018-11-08 07:31] LABS: BASO % 0.4 % (0.0-2.0); EOS # 0.1 K/uL (0.0-0.7); EOS % 0.4 % (0.0-4.0); HEMOGLOBIN 10.2 g/dL (11.0-16.0); LYMPH # 0.6 K/uL (1.0-4.3); LYMPH % 4.2 % (20.0-40.0); MEAN CELL VOLUME 90.6 fL (81.0-99.0); MEAN CORPUSCULAR HEMOGLOBIN 30.4 pg (27.0-31.0); MEAN CORPUSCULAR HGB CONC 33.5 g/dL (33.0-37.0); MEAN PLATELET VOLUME 10.5 fL (7.2-11.7); MONO # 0.9 K/uL (0.0-0.8); MONO % 6.4 % (0.0-10.0); NEUT # 12.5 K/uL (1.8-7.0); NEUT % 88.6 % (50.0-75.0); PLATELET COUNT 161 K/uL (130-400); RBC 3.36 Mil/uL (3.80-5.20); RED CELL DISTRIBUTION WIDTH 14.6 % (11.5-14.5); WHITE BLOOD COUNT 14.1 K/uL (4.8-10.8)
--- NOTE | 2018-11-08 07:44 | PN ---
DATE: 11/07/2018 LOCATION: Room 369, bed A. SUBJECTIVE: This is an 88-year-old female, seen and examined early in rounds without significant clinical changes or reported active bleeding this morning, appears to be somewhat more awake and alert, no reported chest pain, palpitation, significant increase of shortness of breath, chills or fever. The entire chart is reviewed including but not limited to most recent lab and radiology study results, current and the previous medication list, current and the previous medical events. Today's lab results showed blood glucose level of 185, however, the patient still has leukocytosis with low hemoglobin and hematocrit as per yesterday, for which Flagyl is to be started. PHYSICAL EXAMINATION: GENERAL: An 88-year-old female, afebrile with pulse of 100, respiratory 20-22, blood pressure 144/72. HEENT: Showed pale, dry oral mucous membrane. Nonicteric sclerae. LUNGS: Few scattered crepitation. Decreased air entry at bases. HEART: Positive S1 and S2. ABDOMEN: Soft with mild generalized tenderness. No mass or organomegaly. No rebound tenderness or guarding with mild abdominal distention. EXTREMITIES: Without significant clubbing, cyanosis or edema. NEUROLOGIC: No reported new neurological deficits, sensory or motor, and no new reported focal deficits. IMPRESSION: 1. Gastrointestinal bleeding. Please see my endoscopy report with evidence of gastric and duodenal ulcerations. 2. Re-exacerbation of peptic ulcer disease. 3. Leukocytosis. 4. Prerenal azotemia with dehydration. 5. Anemia most likely secondary to above. SUGGESTIONS: 1. Agree with your plan. 2. Adjust oral intake. 3. Add Flagyl IV. 4. In record, gastric biopsy results showed negative for Helicobacter pylori infection. 5. The patient will need followup endoscopy after 2 months post discharge home. Mami Graham MD
[2018-11-08 07:48] LABS: ALB/GLOB RATIO 1.2 (1.0-2.1); ALBUMIN 3.4 g/dL (3.5-5.0); CALCIUM 9.9 mg/dl (8.6-10.4)
[2018-11-08] MEDS: (Novolin R) Insulin Human Regular 100 units/ml vial SC SCH ×4 (08:31→22:26)
[2018-11-08 09:13] LABS: BANDS 1 % (0-2); LYMPHOCYTE 2 % (20-40); MONOCYTE 7 % (0-10); NEUTROPHIL 90 % (50-75); PLATELET ESTIMATE NORMAL (NORMAL); TOTAL CELLS COUNTED 100
[2018-11-08 09:14] LABS: ANISOCYTOSIS SLIGHT; POLYCHROMIC SLIGHT
[2018-11-08] MEDS: Sucralfate 1 gm/10 ml Oral Susp UD PO SCH ×4 (10:17→21:58)
--- NOTE | 2018-11-08 12:52 | CP.PCM.PN ---
Subjective - Date & Time of Evaluation Date of Evaluation: 11/08/18 Time of Evaluation: 10:06 - Subjective Subjective: patient examined today no nausea no vomiting no shortness of breath no dizziness no fever no diarrhea Objective - Vital Signs/Intake and Output Vital Signs (last 24 hours): Temp Pulse Resp BP Pulse Ox 98.2 F 99 H 20 124/71 95 11/08/18 07:46 11/08/18 07:46 11/08/18 07:46 11/08/18 07:46 11/08/18 07:46 Intake and Output: 11/08/18 11/08/18 06:59 18:59 Intake Total 220 Output Total 250 Balance -30 - Medications Medications: Current Medications Acetaminophen (Tylenol 325mg Tab) 650 mg PO Q6 PRN PRN Reason: Pain, moderate (4-7) Last Admin: 11/08/18 03:58 Dose: 650 mg Metronidazole (Flagyl) 500 mg in 100 mls @ 100 mls/hr IVPB Q8H [facility]; Protocol Last Admin: 11/08/18 06:58 Dose: 100 mls/hr Insulin Human Regular (Novolin R) 0 unit SC ACHS [facility]; Protocol Last Admin: 11/08/18 08:31 Dose: 4 u Midazolam HCl (Versed Inj) 2 mg IVP ONCE PRN PRN Reason: Agitation/Restlessness Oxycodone HCl (Oxycodone Immediate Release Tab) 5 mg PO Q6 PRN PRN Reason: PAIN, SEVERE 8-10 Last Admin: 11/08/18 05:48 Dose: 5 mg Pantoprazole Sodium (Protonix Inj) 40 mg IVP Q12H [facility] Last Admin: 11/08/18 05:47 Dose: 40 mg Sucralfate (Carafate Oral Susp) 1 gm PO QID [facility] Last Admin: 11/08/18 10:17 Dose: 1 gm - Labs Labs: 11/08/18 07:09 11/08/18 07:09 PT 13.7 SECONDS (9.7-12.2) H 11/04/18 12:20 INR 1.3 11/04/18 12:20 - Constitutional Appears: Well - Head Exam Head Exam: ATRAUMATIC, NORMAL INSPECTION, NORMOCEPHALIC - Eye Exam Eye Exam: EOMI, Normal appearance, PERRL Pupil Exam: NORMAL ACCOMODATION, PERRL - ENT Exam ENT Exam: Mucous Membranes Moist, Normal Exam - Neck Exam Neck Exam: Full ROM, Normal Inspection. absent: Lymphadenopathy - Respiratory Exam Respiratory Exam: Decreased Breath Sounds - Cardiovascular Exam Cardiovascular Exam: REGULAR RHYTHM, +S1, +S2 - GI/Abdominal Exam GI & Abdominal Exam: Soft, Diminished Bowel Sounds - Rectal Exam Rectal Exam: Deferred - Neurological Exam Neurological Exam: Oriented x3 Assessment and Plan (1) GI bleed Status: Acute (2) Gastrointestinal hemorrhage Status: Acute (3) Abdominal pain Status: Acute (4) Abdominal pain Status: Acute (5) Arthritis Status: Acute (6) Arthritis Status: Acute (7) Atrial fibrillation Status: Acute (8) Chest injury Status: Acute (9) Chest pain Status: Acute (10) Constipation Status: Acute (11) Contusion Status: Acute (12) Degenerative arthritis Status: Acute (13) Diarrhea Status: Acute (14) Gastritis Status: Acute (15) Grief at loss of child Status: Acute (16) Hematemesis Status: Acute (17) Hyperglycemia Status: Acute (18) Hypoglycemia Status: Acute (19) Hypoglycemic reaction to insulin Status: Acute (20) Hypothermia Status: Acute (21) Joint swelling Status: Acute (22) Leg pain, bilateral Status: Acute (23) Nausea Status: Acute (24) Rib fracture Status: Acute (25) Shoulder pain Status: Acute (26) Thoracic back pain Status: Acute (27) Vasovagal near syncope Status: Acute - Assessment and Plan (Free Text) Plan: plan discussed with patient and family moderate complexity of care medications reviewed carafate oral susp novolinR oxycodone protonix tylenol versed inj labs and vitals reviewed I discussed with the daughter Renal sonogram Urine sodium CBC CMP daily Patient told her hemoglobin is stable but BUN/creatinine has gone up si gnificantly so we will hold the discharge renal consult the patient is much better has an appetite eating well Family wants to meet on Saturday Moderate to high complexity of care. Plan of care discussed with patient &/or family & staff. Medications reviewed and reconciled. Labs reviewed. Vitals reviewed. s/p gi
[2018-11-08] MEDS: Sodium Chloride 0.9% 1,000 ML IV SCH (13:56)
[2018-11-08 21:17] LABS: BASO # 0.1 K/uL (0.0-0.2); BASO % 0.5 % (0.0-2.0); EOS # 0.3 K/uL (0.0-0.7); EOS % 1.8 % (0.0-4.0); HEMOGLOBIN 10.4 g/dL (11.0-16.0); LYMPH # 0.7 K/uL (1.0-4.3); LYMPH % 4.7 % (20.0-40.0); MEAN CELL VOLUME 91.3 fL (81.0-99.0); MEAN CORPUSCULAR HEMOGLOBIN 29.7 pg (27.0-31.0); MEAN CORPUSCULAR HGB CONC 32.6 g/dL (33.0-37.0); MEAN PLATELET VOLUME 10.4 fL (7.2-11.7); MONO # 1.1 K/uL (0.0-0.8); MONO % 7.9 % (0.0-10.0); NEUT # 12.2 K/uL (1.8-7.0); NEUT % 85.1 % (50.0-75.0); PLATELET COUNT 150 K/uL (130-400); RBC 3.51 Mil/uL (3.80-5.20); RED CELL DISTRIBUTION WIDTH 14.3 % (11.5-14.5); WHITE BLOOD COUNT 14.3 K/uL (4.8-10.8)
[2018-11-08 21:28] LABS: ALB/GLOB RATIO 1.2 (1.0-2.1); ALBUMIN 3.5 g/dL (3.5-5.0); CALCIUM 9.7 mg/dl (8.6-10.4)
[2018-11-08 22:06] LABS: SQUAMOUS EPITHIAL 1 /hpf (0-5); URINE BACTERIA RARE (<OCC); URINE BILIRUBIN NEGATIVE (NEGATIVE); URINE BLOOD 2+ (NEGATIVE); URINE CLARITY Clear (Clear); URINE COLOR Yellow (YELLOW); URINE GLUCOSE (UA) NORMAL (Normal); URINE LEUKOCYTE ESTERASE TRACE Leu/uL (Negative); URINE PROTEIN NEGATIVE (NEGATIVE); URINE UROBILINOGEN NORMAL mg/dL (0.2-1.0)
[2018-11-08 23:08] LABS: BANDS 2 % (0-2); EOSINOPHIL 1 % (0-4); LYMPHOCYTE 2 % (20-40); MONOCYTE 4 % (0-10); NEUTROPHIL 91 % (50-75); PLATELET ESTIMATE NORMAL (NORMAL); TOTAL CELLS COUNTED 100
[2018-11-09] MEDS: Sodium Chloride 0.9% 1,000 ML IV SCH ×3 (03:00→15:40)
[2018-11-09] MEDS: metroNIDAZOLE IV 500 mg/100 ml 500 MG/100 ML BAG IVPB SCH ×3 (05:47→21:35)
[2018-11-09] MEDS: oxyCODONE 5 mg Immediate Release Tab PO PRN (06:58)
[2018-11-09] MEDS: (Novolin R) Insulin Human Regular 100 units/ml vial SC SCH ×4 (07:44→21:35)
[2018-11-09 07:54] LABS: BASO # 0.1 K/uL (0.0-0.2); BASO % 0.6 % (0.0-2.0); EOS # 0.7 K/uL (0.0-0.7); EOS % 5.5 % (0.0-4.0); HEMOGLOBIN 10.3 g/dL (11.0-16.0); LYMPH # 0.9 K/uL (1.0-4.3); LYMPH % 6.5 % (20.0-40.0); MEAN CELL VOLUME 90.6 fL (81.0-99.0); MEAN CORPUSCULAR HEMOGLOBIN 30.4 pg (27.0-31.0); MEAN CORPUSCULAR HGB CONC 33.6 g/dL (33.0-37.0); MEAN PLATELET VOLUME 10.6 fL (7.2-11.7); MONO % 7.4 % (0.0-10.0); NEUT # 10.6 K/uL (1.8-7.0); NRBC % 0.1 % (0.0-2.0); PLATELET COUNT 156 K/uL (130-400); RBC 3.37 Mil/uL (3.80-5.20); RED CELL DISTRIBUTION WIDTH 14.4 % (11.5-14.5); WHITE BLOOD COUNT 13.2 K/uL (4.8-10.8)
[2018-11-09 08:17] LABS: ALB/GLOB RATIO 1.2 (1.0-2.1); ALBUMIN 3.3 g/dL (3.5-5.0); CALCIUM 9.5 mg/dl (8.6-10.4)
[2018-11-09 08:39] LABS: BANDS 1 % (0-2); EOSINOPHIL 5 % (0-4); LYMPHOCYTE 8 % (20-40); MONOCYTE 3 % (0-10); NEUTROPHIL 83 % (50-75); PLATELET ESTIMATE NORMAL (NORMAL); TOTAL CELLS COUNTED 100
[2018-11-09 08:40] LABS: ANISOCYTOSIS SLIGHT; HYPOCHROMIC SLIGHT; LARGE PLATELETS PRESENT; POLYCHROMIC SLIGHT
[2018-11-09 08:48] LABS: TOXIC GRANULATION PRESENT
[2018-11-09] MEDS: Sucralfate 1 gm/10 ml Oral Susp UD PO SCH ×4 (09:31→21:08)
--- NOTE | 2018-11-09 10:09 | PN ---
DATE: 11/09/2018 LOCATION: 369, bed A. SUBJECTIVE: This is an 88-year-old female, seen and examined in rounds without significant clinical changes or reported active bleeding. No reported chest pain or palpitation. The entire chart is reviewed including the most recent lab and radiology study results, current and the previous medication list and today's lab results still pending. However, the patient still has low hemoglobin, hematocrit with leukocytosis with increased BUN and creatinine with hyperglycemia. It is noted that the patient had persistently normal liver function test. PHYSICAL EXAMINATION: GENERAL: An 88-year-old female. VITAL SIGNS: Afebrile with heart rate of 98, respiratory rate 20 to 22, blood pressure of 144/70. HEENT: Showed mildly dry oral mucous membrane. Nonicteric sclerae. LUNGS: Few scattered crepitation. Decreased air entry at bases. HEART: Positive S1 and S2 with increased rate. ABDOMEN: Soft with mild generalized tenderness, especially midepigastric and midabdominal line. No mass or organomegaly. No rebound tenderness or guarding. EXTREMITIES: Without significant edema, clubbing or cyanosis. NEUROLOGIC: No reported new neurological deficits, sensory or motor. IMPRESSION: 1. Recently reported active gastrointestinal bleeding, subsided, the patient is stable clinically. 2. Anemia, most likely secondary to above. 3. Re-exacerbation of peptic ulcer disease. 4. Prerenal azotemia with dehydration. SUGGESTIONS: 1. Continue current management. 2. Advance diet. 3. The patient may need colonoscopy due to her persistent anemia. 4. Further recommendation to follow. Mami Graham MD
--- NOTE | 2018-11-09 11:18 | US ---
Date of service: 11/09/2018 PROCEDURE: Ultrasound of the Kidneys HISTORY: arf COMPARISON: None available. TECHNIQUE: Sonogram of the kidneys. FINDINGS: RIGHT KIDNEY: Measures: 10 x 4.9 x 4 cm. The kidneys are echogenic. Mildly dilated collecting system of the kidneys is noted. No evidence of cortical deforming mass lesion in the right kidney. LEFT KIDNEY: Measures: 9.7 x 3.9 x 4 cm. Normal in size, contour and mild increased echogenicity. No stone, solid mass lesion visualized. Mild hydronephrosis. OTHER FINDINGS: The urinary bladder is distended with a total volume of 800 mL. IMPRESSION: Echogenic kidneys with mild bilateral hydronephrosis. Distended urinary bladder. Correlate clinically for possible bladder outlet obstruction.
[2018-11-09] MEDS: Trolamine Salicylate 10% Cream (85 gm) TOP PRN ×2 (12:09→17:23)
--- NOTE | 2018-11-09 13:28 | CP.PCM.CON ---
History of Present Illness - History of Present Illness History of Present Illness: CONSULT FOR ARF 88F w/ hx of HTN, HL, DM who presented to ER w/ hematemesis. She was admitted to ICU. She was seen by GI and underwent transfusion and EGD. After stabalization she was admitted to floors where her cr has been steadily climbing over the last several days. She received one dose of IV toradol. Otherwise no significant hypotensive events noted. She states she has not been able to void much. ros: a full detailed ROS is negative except as in my hpi PMHx: Anxiety, Arthritis, CAD, Cardia Arrhythmia, Diabetes, HTN, Hypercholesterolemia, Osteoporosis PSHx: denies Family hx: denies any hx of GI related malignancies Social hx: denies nay smoking, illicit drug use, or alcohol use meds as below all as below pe: vss gen: nad sclera: anicteric op: clear neck :Supple cv: +s1+s2 no rub lungs: cta b/l abd: Soft nt nd slight distension in suprapubic region ext: no edema neuro: A+ox3 no focal defecit psych: nml affect skin no rash labs and imaging reviewed renal w/ bladder 800 cc and mild fullness in kidney imp: ARF/obstructive uropathy/ Anemia/ GIB /acidosis plan: YUVAL - ? obstructive reviewed US . discussed w/ RN espino to be placed will monitor for response bp stable will monitor acidosis and start supplement if no improvement transfuse per primary team f/u gi Past Patient History - Infectious Disease Hx of Infectious Diseases: None - Past Medical History & Family History Past Medical History?: Yes - Past Social History Smoking Status: Never Smoked - CARDIAC Hx Cardiac Disorders: Yes (Cardia Arrhythmia, CAD) Hx Hypercholesterolemia: Yes Hx Hypertension: Yes - PULMONARY Hx Respiratory Disorders: No - NEUROLOGICAL Hx Neurological Disorder: No - HEENT Hx HEENT Problems: No - RENAL Hx Chronic Kidney Disease: No - ENDOCRINE/METABOLIC Hx Diabetes Mellitus Type 2: Yes - HEMATOLOGICAL/ONCOLOGICAL Hx Blood Disorders: No - INTEGUMENTARY Hx Dermatological Problems: No - MUSCULOSKELETAL/RHEUMATOLOGICAL Hx Arthritis: Yes - GASTROINTESTINAL Hx Gastrointestinal Disorders: Yes Other/Comment: HX. GI BLEEDING - GENITOURINARY/GYNECOLOGICAL Hx Genitourinary Disorders: No - PSYCHIATRIC Hx Anxiety: Yes Hx Substance Use: No - SURGICAL HISTORY Hx Surgeries: Yes Hx Section: Yes Hx Orthopedic Surgery: Yes (Right ankle, Left shoulder.) - ANESTHESIA Hx Anesthesia: Yes Hx Anesthesia Reactions: No Hx Malignant Hyperthermia: No Meds Allergies/Adverse Reactions: Allergies Allergy/AdvReac Type Severity Reaction Status Date / Time No Known Allergies Allergy Verified 06/30/17 11:42 - Medications Medications: Current Medications Acetaminophen (Tylenol 325mg Tab) 650 mg PO Q6 PRN PRN Reason: Pain, moderate (4-7) Last Admin: 11/09/18 10:38 Dose: 650 mg Metronidazole (Flagyl) 500 mg in 100 mls @ 100 mls/hr IVPB Q8H [facility]; Protocol Last Admin: 11/09/18 05:47 Dose: 100 mls/hr Sodium Chloride (Sodium Chloride 0.9%) 1,000 mls @ 80 mls/hr IV .[id number] [facility] Last Admin: 11/09/18 05:48 Dose: 80 mls/hr Insulin Human Regular (Novolin R) 0 unit SC ACHS [facility]; Protocol Last Admin: 11/09/18 12:04 Dose: 4 u Midazolam HCl (Versed Inj) 2 mg IVP ONCE PRN PRN Reason: Agitation/Restlessness Oxycodone HCl (Oxycodone Immediate Release Tab) 5 mg PO Q6 PRN PRN Reason: PAIN, SEVERE 8-10 Last Admin: 11/09/18 06:58 Dose: 5 mg Pantoprazole Sodium (Protonix Ec Tab) 40 mg PO Q12H [facility] Sucralfate (Carafate Oral Susp) 1 gm PO QID [facility] Last Admin: 11/09/18 09:31 Dose: 1 gm Trolamine Salicylate (Aspercreme) 0 gm TOP TID PRN PRN Reason: Pain, Mild (1-3) Last Admin: 11/09/18 12:09 Dose: 85 gm Results - Vital Signs Recent Vital Signs: Last Vital Signs Temp 97.6 F 11/09/18 08:22 Pulse 95 H 11/09/18 08:22 Resp 20 11/09/18 08:22 BP 149/81 11/09/18 08:22 Pulse Ox 96 11/09/18 08:22 - Labs Result Diagrams: 11/09/18 07:41 11/09/18 07:41 Labs: Laboratory Results - last 24 hr 11/08/18 11/08/18 11/08/18 16:30 21:11 21:11 WBC 14.3 H RBC 3.51 L Hgb 10.4 L Hct 32.0 L MCV 91.3 MCH 29.7 MCHC 32.6 L RDW 14.3 Plt Count 150 MPV 10.4 Neut % (Auto) 85.1 H Lymph % (Auto) 4.7 L [place] % (Auto) 7.9 Eos % (Auto) 1.8 Baso % (Auto) 0.5 Neut # (Auto) 12.2 H Lymph # (Auto) 0.7 L [place] # (Auto) 1.1 H Eos # (Auto) 0.3 Baso # (Auto) 0.1 Neutrophils % (Manual) 91 H Band Neutrophils % 2 Lymphocytes % (Manual) 2 L Monocytes % (Manual) 4 Eosinophils % (Manual) 1 Toxic Granulation Platelet Estimate Normal Large Platelets Polychromasia Hypochromasia (manual) Anisocytosis (manual) Sodium 139 Potassium 4.0 Chloride 105 Carbon Dioxide 19 L Anion Gap 18 BUN 70 H Creatinine 4.7 H Est GFR ( Amer) 11 Est GFR (Non-Af Amer) 9 POC Glucose (mg/dL) 180 H Random Glucose 198 H Calcium 9.7 Phosphorus 3.8 Magnesium 2.3 Total Bilirubin 0.7 AST 16 ALT 17 Alkaline Phosphatase 82 Total Protein 6.4 Albumin 3.5 Globulin 3.0 Albumin/Globulin Ratio 1.2 Urine Color Urine Clarity Urine pH Ur Specific [place] Urine Protein Urine Glucose (UA) Urine Ketones Urine Blood Urine Nitrate Urine Bilirubin Urine Urobilinogen Ur Leukocyte Esterase Urine WBC (Auto) Urine RBC (Auto) Ur Squamous Epith Cells Urine Bacteria Ur Random Sodium 11/08/18 11/08/18 11/08/18 21:11 21:19 21:58 WBC RBC Hgb Hct MCV MCH MCHC RDW Plt Count MPV Neut % (Auto) Lymph % (Auto) [place] % (Auto) Eos % (Auto) Baso % (Auto) Neut # (Auto) Lymph # (Auto) [place] # (Auto) Eos # (Auto) Baso # (Auto) Neutrophils % (Manual) Band Neutrophils % Lymphocytes % (Manual) Monocytes % (Manual) Eosinophils % (Manual) Toxic Granulation Platelet Estimate Large Platelets Polychromasia Hypochromasia (manual) Anisocytosis (manual) Sodium Potassium Chloride Carbon Dioxide Anion Gap BUN Creatinine Est GFR ( Amer) Est GFR (Non-Af Amer) POC Glucose (mg/dL) 206 H Random Glucose Calcium Phosphorus Magnesium Total Bilirubin AST ALT Alkaline Phosphatase Total Protein Albumin Globulin Albumin/Globulin Ratio Urine Color Yellow Urine Clarity Clear Urine pH 5.0 Ur Specific Elizabeth 1.014 Urine Protein Negative Urine Glucose (UA) Normal Urine Ketones Negative Urine Blood 2+ H Urine Nitrate Negative Urine Bilirubin Negative Urine Urobilinogen Normal Ur Leukocyte Esterase Trace Urine WBC (Auto) 12 H Urine RBC (Auto) 26 H Ur Squamous Epith Cells 1 Urine Bacteria Rare Ur Random Sodium 46 11/09/18 11/09/18 11/09/18 07:24 07:41 07:41 WBC 13.2 H RBC 3.37 L Hgb 10.3 L Hct 30.6 L MCV 90.6 MCH 30.4 MCHC 33.6 RDW 14.4 Plt Count 156 MPV 10.6 Neut % (Auto) 80.0 H Lymph % (Auto) 6.5 L [place] % (Auto) 7.4 Eos % (Auto) 5.5 H Baso % (Auto) 0.6 Neut # (Auto) 10.6 H Lymph # (Auto) 0.9 L [place] # (Auto) 1.0 H Eos # (Auto) 0.7 Baso # (Auto) 0.1 Neutrophils % (Manual) 83 H Band Neutrophils % 1 Lymphocytes % (Manual) 8 L Monocytes % (Manual) 3 Eosinophils % (Manual) 5 H Toxic Granulation Present Platelet Estimate Normal Large Platelets Present Polychromasia Slight Hypochromasia (manual) Slight Anisocytosis (manual) Slight Sodium 139 Potassium 3.8 Chloride 107 Carbon Dioxide 18 L Anion Gap 19 BUN 75 H Creatinine 5.5 H Est GFR ( Amer) 9 Est GFR (Non-Af Amer) 7 POC Glucose (mg/dL) 228 H Random Glucose 188 H Calcium 9.5 Phosphorus 4.0 Magnesium 2.3 Total Bilirubin 0.8 AST 16 ALT 20 Alkaline Phosphatase 81 Total Protein 6.1 L Albumin 3.3 L Globulin 2.8 Albumin/Globulin Ratio 1.2 Urine Color Urine Clarity Urine pH Ur Specific Elizabeth Urine Protein Urine Glucose (UA) Urine Ketones Urine Blood Urine Nitrate Urine Bilirubin Urine Urobilinogen Ur Leukocyte Esterase Urine WBC (Auto) Urine RBC (Auto) Ur Squamous Epith Cells Urine Bacteria Ur Random Sodium 11/09/18 11:30 WBC RBC Hgb Hct MCV MCH MCHC RDW Plt Count MPV Neut % (Auto) Lymph % (Auto) [place] % (Auto) Eos % (Auto) Baso % (Auto) Neut # (Auto) Lymph # (Auto) [place] # (Auto) Eos # (Auto) Baso # (Auto) Neutrophils % (Manual) Band Neutrophils % Lymphocytes % (Manual) Monocytes % (Manual) Eosinophils % (Manual) Toxic Granulation Platelet Estimate Large Platelets Polychromasia Hypochromasia (manual) Anisocytosis (manual) Sodium Potassium Chloride Carbon Dioxide Anion Gap BUN Creatinine Est GFR ( Amer) Est GFR (Non-Af Amer) POC Glucose (mg/dL) 257 H Random Glucose Calcium Phosphorus Magnesium Total Bilirubin AST ALT Alkaline Phosphatase Total Protein Albumin Globulin Albumin/Globulin Ratio Urine Color Urine Clarity Urine pH Ur Specific [place] Urine Protein Urine Glucose (UA) Urine Ketones Urine Blood Urine Nitrate Urine Bilirubin Urine Urobilinogen Ur Leukocyte Esterase Urine WBC (Auto) Urine RBC (Auto) Ur Squamous Epith Cells Urine Bacteria Ur Random Sodium
--- NOTE | 2018-11-09 14:44 | CP.PCM.PN ---
Subjective - Date & Time of Evaluation Date of Evaluation: 11/09/18 Time of Evaluation: 11:02 - Subjective Subjective: patient examined at bedside no nausea no vomiting no fever no dizziness no diarrhea no shortness of breath no fresh blood per rectum hgb stable Objective - Vital Signs/Intake and Output Vital Signs (last 24 hours): Temp Pulse Resp BP Pulse Ox 97.6 F 95 H 20 149/81 96 11/09/18 08:22 11/09/18 08:22 11/09/18 08:22 11/09/18 08:22 11/09/18 08:22 Intake and Output: 11/09/18 11/09/18 06:59 18:59 Intake Total 1240 1000 Output Total 250 30 Balance 990 970 - Medications Medications: Current Medications Acetaminophen (Tylenol 325mg Tab) 650 mg PO Q6 PRN PRN Reason: Pain, moderate (4-7) Last Admin: 11/09/18 10:38 Dose: 650 mg Metronidazole (Flagyl) 500 mg in 100 mls @ 100 mls/hr IVPB Q8H [facility]; Protocol Last Admin: 11/09/18 13:39 Dose: 100 mls/hr Sodium Chloride (Sodium Chloride 0.9%) 1,000 mls @ 80 mls/hr IV .[id number] [facility] Last Admin: 11/09/18 05:48 Dose: 80 mls/hr Insulin Human Regular (Novolin R) 0 unit SC ACHS [facility]; Protocol Last Admin: 11/09/18 12:04 Dose: 4 u Midazolam HCl (Versed Inj) 2 mg IVP ONCE PRN PRN Reason: Agitation/Restlessness Oxycodone HCl (Oxycodone Immediate Release Tab) 5 mg PO Q6 PRN PRN Reason: PAIN, SEVERE 8-10 Last Admin: 11/09/18 06:58 Dose: 5 mg Pantoprazole Sodium (Protonix Ec Tab) 40 mg PO Q12H [facility] Sucralfate (Carafate Oral Susp) 1 gm PO QID [facility] Last Admin: 11/09/18 13:39 Dose: 1 gm Trolamine Salicylate (Aspercreme) 0 gm TOP TID PRN PRN Reason: Pain, Mild (1-3) Last Admin: 11/09/18 12:09 Dose: 85 gm - Labs Labs: 11/09/18 07:41 11/09/18 07:41 PT 13.7 SECONDS (9.7-12.2) H 11/04/18 12:20 INR 1.3 11/04/18 12:20 - Constitutional Appears: Well - Head Exam Head Exam: ATRAUMATIC, NORMAL INSPECTION, NORMOCEPHALIC - Eye Exam Eye Exam: EOMI, Normal appearance, PERRL Pupil Exam: NORMAL ACCOMODATION, PERRL - ENT Exam ENT Exam: Mucous Membranes Moist, Normal Exam - Neck Exam Neck Exam: Full ROM, Normal Inspection. absent: Lymphadenopathy - Respiratory Exam Respiratory Exam: Decreased Breath Sounds - Cardiovascular Exam Cardiovascular Exam: REGULAR RHYTHM, +S1, +S2 - GI/Abdominal Exam GI & Abdominal Exam: Soft, Diminished Bowel Sounds - Rectal Exam Rectal Exam: Deferred - Neurological Exam Neurological Exam: Oriented x3 Assessment and Plan - Assessment and Plan (Free Text) Plan: carafate oral susp novolinR oxycodone protonix tylenol For discharge but unfortunately creatinine bumped up to 5.5 with BUN 75 Patient encouraged to eat Discussed with the family who is at bedside Patient says she is eating and she is trying to eat patient at pasta earlier Renal sonogram Renal consult Follow-up with serial BUN creatinine CBC and CMP plan discussed with patient and family moderate complexity of care medications reviewed hgb stbale
[2018-11-09] MEDS: Pantoprazole 40 mg EC Tab PO SCH (17:23)
[2018-11-10] MEDS: Pantoprazole 40 mg EC Tab PO SCH ×2 (05:12→17:06)
[2018-11-10] MEDS: metroNIDAZOLE IV 500 mg/100 ml 500 MG/100 ML BAG IVPB SCH ×3 (05:31→22:45)
[2018-11-10 07:27] LABS: BASO # 0.1 K/uL (0.0-0.2); MONO # 1.1 K/uL (0.0-0.8)
[2018-11-10 07:33] LABS: BASO % 0.7 % (0.0-2.0); EOS # 1.3 K/uL (0.0-0.7); EOS % 9.7 % (0.0-4.0); HEMOGLOBIN 9.6 g/dL (11.0-16.0); LYMPH % 7.3 % (20.0-40.0); MEAN CELL VOLUME 90.5 fL (81.0-99.0); MEAN CORPUSCULAR HEMOGLOBIN 30.4 pg (27.0-31.0); MEAN CORPUSCULAR HGB CONC 33.6 g/dL (33.0-37.0); MEAN PLATELET VOLUME 10.5 fL (7.2-11.7); MONO % 8.4 % (0.0-10.0); NEUT # 9.7 K/uL (1.8-7.0); NEUT % 73.9 % (50.0-75.0); NRBC % 0.1 % (0.0-2.0); RBC 3.14 Mil/uL (3.80-5.20); RED CELL DISTRIBUTION WIDTH 14.4 % (11.5-14.5); WHITE BLOOD COUNT 13.2 K/uL (4.8-10.8)
[2018-11-10 07:36] LABS: PLATELET COUNT 119 K/uL (130-400)
[2018-11-10 07:38] LABS: CALCIUM 9.3 mg/dl (8.6-10.4)
[2018-11-10] MEDS: (Novolin R) Insulin Human Regular 100 units/ml vial SC SCH ×4 (08:00→22:43)
[2018-11-10 08:02] VITALS: RESP 20
[2018-11-10 08:49] LABS: BANDS 3 % (0-2); BURR CELLS SLIGHT; EOSINOPHIL 8 % (0-4); LYMPHOCYTE 6 % (20-40); MONOCYTE 7 % (0-10); NEUTROPHIL 76 % (50-75); PLATELET ESTIMATE SLIGHTLY DECREASED (NORMAL); TOTAL CELLS COUNTED 100
--- NOTE | 2018-11-10 10:47 | CP.PCM.CON ---
Past Patient History - Infectious Disease Hx of Infectious Diseases: None - Past Medical History & Family History Past Medical History?: Yes - Past Social History Smoking Status: Never Smoked - CARDIAC Hx Cardiac Disorders: Yes (Cardia Arrhythmia, CAD) Hx Hypercholesterolemia: Yes Hx Hypertension: Yes - PULMONARY Hx Respiratory Disorders: No - NEUROLOGICAL Hx Neurological Disorder: No - HEENT Hx HEENT Problems: No - RENAL Hx Chronic Kidney Disease: No - ENDOCRINE/METABOLIC Hx Diabetes Mellitus Type 2: Yes - HEMATOLOGICAL/ONCOLOGICAL Hx Blood Disorders: No - INTEGUMENTARY Hx Dermatological Problems: No - MUSCULOSKELETAL/RHEUMATOLOGICAL Hx Arthritis: Yes - GASTROINTESTINAL Hx Gastrointestinal Disorders: Yes Other/Comment: HX. GI BLEEDING - GENITOURINARY/GYNECOLOGICAL Hx Genitourinary Disorders: No - PSYCHIATRIC Hx Anxiety: Yes Hx Substance Use: No - SURGICAL HISTORY Hx Surgeries: Yes Hx Section: Yes Hx Orthopedic Surgery: Yes (Right ankle, Left shoulder.) - ANESTHESIA Hx Anesthesia: Yes Hx Anesthesia Reactions: No Hx Malignant Hyperthermia: No Meds Allergies/Adverse Reactions: Allergies Allergy/AdvReac Type Severity Reaction Status Date / Time No Known Allergies Allergy Verified 06/30/17 11:42 - Medications Medications: Current Medications Acetaminophen (Tylenol 325mg Tab) 650 mg PO Q6 PRN PRN Reason: Pain, moderate (4-7) Last Admin: 11/09/18 10:38 Dose: 650 mg Metronidazole (Flagyl) 500 mg in 100 mls @ 100 mls/hr IVPB Q8H [facility]; Protocol Last Admin: 11/10/18 05:31 Dose: 100 mls/hr Sodium Chloride (Sodium Chloride 0.9%) 1,000 mls @ 80 mls/hr IV .[id number] [facility] Last Admin: 11/09/18 15:40 Dose: Not Given Insulin Human Regular (Novolin R) 0 unit SC ACHS [facility]; Protocol Last Admin: 11/10/18 08:00 Dose: Not Given Midazolam HCl (Versed Inj) 2 mg IVP ONCE PRN PRN Reason: Agitation/Restlessness Oxycodone HCl (Oxycodone Immediate Release Tab) 5 mg PO Q6 PRN PRN Reason: PAIN, SEVERE 8-10 Last Admin: 11/09/18 06:58 Dose: 5 mg Pantoprazole Sodium (Protonix Ec Tab) 40 mg PO Q12H [facility] Last Admin: 11/10/18 05:12 Dose: Not Given Sucralfate (Carafate Oral Susp) 1 gm PO QID [facility] Last Admin: 11/09/18 21:08 Dose: 1 gm Trolamine Salicylate (Aspercreme) 0 gm TOP TID PRN PRN Reason: Pain, Mild (1-3) Last Admin: 11/09/18 17:23 Dose: 85 gm Results - Vital Signs Recent Vital Signs: Last Vital Signs Temp 97.9 F 11/10/18 07:56 Pulse 85 11/10/18 07:56 Resp 20 11/10/18 07:56 BP 151/86 H 11/10/18 07:56 Pulse Ox 96 11/10/18 07:56 - Labs Result Diagrams: 11/10/18 07:07 11/10/18 07:07 Labs: Laboratory Results - last 24 hr 11/09/18 11/09/18 11/09/18 11:30 16:37 21:20 WBC RBC Hgb Hct MCV MCH MCHC RDW Plt Count MPV Neut % (Auto) Lymph % (Auto) [place] % (Auto) Eos % (Auto) Baso % (Auto) Neut # (Auto) Lymph # (Auto) [place] # (Auto) Eos # (Auto) Baso # (Auto) Neutrophils % (Manual) Band Neutrophils % Lymphocytes % (Manual) Monocytes % (Manual) Eosinophils % (Manual) Platelet Estimate [place] Cells Sodium Potassium Chloride Carbon Dioxide Anion Gap BUN Creatinine Est GFR ( Amer) Est GFR (Non-Af Amer) POC Glucose (mg/dL) 257 H 208 H 172 H Random Glucose Calcium 11/10/18 11/10/18 11/10/18 07:06 07:07 07:07 WBC 13.2 H RBC 3.14 L Hgb 9.6 L Hct 28.5 L MCV 90.5 MCH 30.4 MCHC 33.6 RDW 14.4 Plt Count 119 L D MPV 10.5 Neut % (Auto) 73.9 Lymph % (Auto) 7.3 L [place] % (Auto) 8.4 Eos % (Auto) 9.7 H Baso % (Auto) 0.7 Neut # (Auto) 9.7 H Lymph # (Auto) 1.0 [place] # (Auto) 1.1 H Eos # (Auto) 1.3 H Baso # (Auto) 0.1 Neutrophils % (Manual) 76 H Band Neutrophils % 3 H Lymphocytes % (Manual) 6 L Monocytes % (Manual) 7 Eosinophils % (Manual) 8 H Platelet Estimate Slightly decreased L [place] Cells Slight Sodium 139 Potassium 4.1 Chloride 109 H Carbon Dioxide 17 L Anion Gap 17 BUN 88 H Creatinine 6.7 H Est GFR ( Amer) 7 Est GFR (Non-Af Amer) 6 POC Glucose (mg/dL) 167 H Random Glucose 151 H Calcium 9.3 Assessment & Plan - Assessment and Plan (Free Text) Assessment: IMP: urinary retention inability to be catheterized renal failure GI bleed Diabetes full note tbd YS - Date & Time Date: 11/10/18 Time: 08:30
[2018-11-10] MEDS: Sucralfate 1 gm/10 ml Oral Susp UD PO SCH ×4 (10:53→21:20)
[2018-11-10] MEDS: Trolamine Salicylate 10% Cream (85 gm) TOP PRN ×2 (10:54→21:21)
[2018-11-10] MEDS: Sodium Chloride 0.9% 1,000 ML IV SCH ×2 (10:55→16:42)
--- NOTE | 2018-11-10 14:18 | PN ---
DATE: 11/10/2018 LOCATION 369, bed A. SUBJECTIVE: This is an 88-year-old female seen and examined in rounds, appears to be somewhat more awake and alert without reported active GI bleeding, have been followed by the urology enterprise resource planning consultant, Dr. Bailey. The patient still has Garg catheter in place. No reported actual chest pain, palpitation, significant increase of shortness of breath, chills or fever this morning. The entire chart is reviewed including but not limited to most recent lab and radiology study results, current and the previous medication list, current and the previous medical events. Case discussed with the staff at length. Today's lab results showed white blood cells of 13.2, hemoglobin 9.6, hematocrit 28.5 with thrombocytopenia of 119 with CO2 content of 17, indicative of metabolic acidosis. BUN is 88, creatinine 6.7, blood glucose level 167. Rest of the lab results still pending. PHYSICAL EXAMINATION: GENERAL: An 88-year-old female. VITAL SIGNS: Afebrile with pulse of 82, respiratory rate 20 to 22 with blood pressure of 142/84. HEENT: Showed pale, dry mucous membrane. Nonicteric sclerae. LUNGS: Few scattered crepitation. Decreased air entry at bases with few mild bilateral rales. HEART: Positive S1 and S2. ABDOMEN: Mildly obese but soft with mild distention and generalized tenderness. No mass or organomegaly could be appreciated. No rebound tenderness or guarding. EXTREMITIES: Without significant clubbing or cyanosis, but mild lower extremity edematous changes. IMPRESSION: 1. Recent history of gastrointestinal bleeding, none since the last upper endoscopy. 2. Hypochromic microcytic anemia, most likely secondary to above. 3. Prerenal azotemia, dehydration, and recently reported subsequent renal insufficiency. 4. Known history of hypertension, hyperlipidemia with diabetes mellitus as well as severe anxiety syndrome with osteoarthritis and coronary artery disease with osteoporosis. SUGGESTIONS: 1. Agree with your plan. 2. Follow up cancer markers. 3. If there is subsequent and significant drop of hemoglobin and hematocrit, then colonoscopy to be kept in mind after adequate preparation, otherwise close observation to follow. Mami Graham MD [facility] # [id number]
--- NOTE | 2018-11-10 14:27 | CP.PCM.PN ---
Subjective - Date & Time of Evaluation Date of Evaluation: 11/10/18 Time of Evaluation: 14:22 - Subjective Subjective: Nephrology Follow up Note 88F w/ hx of HTN, HL, DM who presented to ER w/ hematemesis. She was admitted to ICU. She was seen by GI and underwent transfusion and EGD. After stabalization she was admitted to floors where her cr has been steadily climbing over the last several days. She received one dose of IV toradol. Otherwise no significant hypotensive events noted. She states she has not been able to void much. ros: a full detailed ROS is negative except as in my hpi PMHx: Anxiety, Arthritis, CAD, Cardia Arrhythmia, Diabetes, HTN, Hypercholesterolemia, Osteoporosis PSHx: denies Family hx: denies any hx of GI related malignancies Social hx: denies nay smoking, illicit drug use, or alcohol use meds as below all as below Sub: pt feels better. denies CP/SOB/nausea/vomitting. UOP ~ 3 L after espino insertion by urologist. pe: vss gen: nad sclera: anicteric op: clear neck :Supple cv: +s1+s2 no rub lungs: cta b/l abd: Soft nt nd bladder not palpable. has espino ext: no edema neuro: A+ox3 no focal defecit psych: nml affect skin no rash labs and imaging reviewed renal w/ bladder 800 cc and mild fullness in kidney imp: ARF/obstructive uropathy/ Anemia/ GIB /acidosis /DM/HTN plan: anticipate improvement in renal function soon, since, obstruction is relieved management of urine retention/bladder dysfunction per Urology. continue with espino catheter no acute need for dialysis at present bp stable will monitor acidosis and start supplement if no improvement soon transfuse as needed per primary team. added iron and MVI GI following. pt on PPI Dose meds/antibiotics for reduced GFR. Avoid fleets enema/magnesium based laxatives. Avoid nephrotoxins/NSAIDs/ iodinated contrast (unless needed emergently) Glycemic control, smoking cessation Further work up/management as per primary team Thanks for allowing me to participate in care of your patient. Will follow patient with you. Please call if any Qs. had d/w team and family bedside Dr Tex Larson Office: [phone] Objective - Vital Signs/Intake and Output Vital Signs (last 24 hours): Temp Pulse Resp BP Pulse Ox 97.9 F 85 20 151/86 H 96 11/10/18 07:56 11/10/18 07:56 11/10/18 07:56 11/10/18 07:56 11/10/18 07:56 Intake and Output: 11/10/18 11/10/18 06:59 18:59 Intake Total 1040 Balance 1040 - Medications Medications: Current Medications Acetaminophen (Tylenol 325mg Tab) 650 mg PO Q6 PRN PRN Reason: Pain, moderate (4-7) Last Admin: 11/09/18 10:38 Dose: 650 mg Metronidazole (Flagyl) 500 mg in 100 mls @ 100 mls/hr IVPB Q8H [facility]; Protocol Last Admin: 11/10/18 05:31 Dose: 100 mls/hr Sodium Chloride (Sodium Chloride 0.9%) 1,000 mls @ 80 mls/hr IV .[id number] [facility] Last Admin: 11/10/18 10:55 Dose: 80 mls/hr Insulin Human Regular (Novolin R) 0 unit SC ACHS [facility]; Protocol Last Admin: 11/10/18 12:42 Dose: 2 u Midazolam HCl (Versed Inj) 2 mg IVP ONCE PRN PRN Reason: Agitation/Restlessness Oxycodone HCl (Oxycodone Immediate Release Tab) 5 mg PO Q6 PRN PRN Reason: PAIN, SEVERE 8-10 Last Admin: 11/09/18 06:58 Dose: 5 mg Pantoprazole Sodium (Protonix Ec Tab) 40 mg PO Q12H [facility] Last Admin: 11/10/18 05:12 Dose: Not Given Sucralfate (Carafate Oral Susp) 1 gm PO QID [facility] Last Admin: 11/10/18 10:53 Dose: 1 gm Trolamine Salicylate (Aspercreme) 0 gm TOP TID PRN PRN Reason: Pain, Mild (1-3) Last Admin: 11/10/18 10:54 Dose: 85 gm - Labs Labs: 11/10/18 07:07 11/10/18 07:07 PT 13.7 SECONDS (9.7-12.2) H 11/04/18 12:20 INR 1.3 11/04/18 12:20
[2018-11-10 15:04] LABS: URINE BACTERIA RARE (<OCC); URINE BILIRUBIN NEGATIVE (NEGATIVE); URINE BLOOD 3+ (NEGATIVE); URINE CLARITY Hazy (Clear); URINE COLOR Yellow (YELLOW); URINE GLUCOSE (UA) 1+ mg/dL (Normal); URINE LEUKOCYTE ESTERASE 3+ Leu/uL (Negative); URINE PROTEIN 2+ mg/dL (NEGATIVE); URINE UROBILINOGEN NORMAL mg/dL (0.2-1.0)
--- NOTE | 2018-11-10 18:35 | CP.PCM.PN ---
Subjective - Date & Time of Evaluation Date of Evaluation: 11/10/18 Time of Evaluation: 19:00 - Subjective Subjective: patient examined today no nausea no vomiting no fever no diarrhea no dizziness no shortness of breath Objective - Vital Signs/Intake and Output Vital Signs (last 24 hours): Temp Pulse Resp BP Pulse Ox 97 F L 96 H 20 156/88 H 97 11/10/18 16:00 11/10/18 16:00 11/10/18 16:00 11/10/18 16:00 11/10/18 16:00 Intake and Output: 11/10/18 11/10/18 06:59 18:59 Intake Total 1040 1060 Output Total 3700 Balance 1040 -2640 - Medications Medications: Current Medications Acetaminophen (Tylenol 325mg Tab) 650 mg PO Q6 PRN PRN Reason: Pain, moderate (4-7) Last Admin: 11/09/18 10:38 Dose: 650 mg Ferrous Gluconate (Fergon) 324 mg PO TID [facility] Last Admin: 11/10/18 17:06 Dose: 324 mg Metronidazole (Flagyl) 500 mg in 100 mls @ 100 mls/hr IVPB Q8H [facility]; Protocol Last Admin: 11/10/18 14:27 Dose: 100 mls/hr Sodium Chloride (Sodium Chloride 0.9%) 1,000 mls @ 80 mls/hr IV .[id number] [facility] Last Admin: 11/10/18 16:42 Dose: Not Given Insulin Human Regular (Novolin R) 0 unit SC ACHS [facility]; Protocol Last Admin: 11/10/18 17:07 Dose: 2 u Midazolam HCl (Versed Inj) 2 mg IVP ONCE PRN PRN Reason: Agitation/Restlessness Oxycodone HCl (Oxycodone Immediate Release Tab) 5 mg PO Q6 PRN PRN Reason: PAIN, SEVERE 8-10 Last Admin: 11/09/18 06:58 Dose: 5 mg Pantoprazole Sodium (Protonix Ec Tab) 40 mg PO Q12H [facility] Last Admin: 11/10/18 17:06 Dose: 40 mg Sucralfate (Carafate Oral Susp) 1 gm PO QID [facility] Last Admin: 11/10/18 17:06 Dose: 1 gm Trolamine Salicylate (Aspercreme) 0 gm TOP TID PRN PRN Reason: Pain, Mild (1-3) Last Admin: 11/10/18 10:54 Dose: 85 gm Vitamin B Complex/Vit C/Folic Acid (Nephro-Kaitlin) 1 tab PO 0800 [facility] - Labs Labs: 11/10/18 07:07 11/10/18 07:07 PT 13.7 SECONDS (9.7-12.2) H 11/04/18 12:20 INR 1.3 11/04/18 12:20 - Constitutional Appears: Well - Head Exam Head Exam: ATRAUMATIC, NORMAL INSPECTION, NORMOCEPHALIC - Eye Exam Eye Exam: EOMI, Normal appearance, PERRL Pupil Exam: NORMAL ACCOMODATION, PERRL - ENT Exam ENT Exam: Mucous Membranes Moist, Normal Exam - Neck Exam Neck Exam: Full ROM, Normal Inspection. absent: Lymphadenopathy - Respiratory Exam Respiratory Exam: Decreased Breath Sounds - Cardiovascular Exam Cardiovascular Exam: REGULAR RHYTHM, +S1, +S2 - GI/Abdominal Exam GI & Abdominal Exam: Soft, Diminished Bowel Sounds - Rectal Exam Rectal Exam: Deferred - Neurological Exam Neurological Exam: Oriented x3 Assessment and Plan - Assessment and Plan (Free Text) Plan: aspercreme carafate oral susp fergon flagyl nephro-kaitlin novolinR oxycodone protonix tylenol sodium chloride Creatinine bumped up again today to 6.7 with a BUN 88 This call us spoke to the patient's family who is bedside everybody's bedside at length there is an element of patient's not been eating much but there may be more than that there is obstructive uropathy status post Garg catheter patient is has no abdominal discomfort no nausea vomiting patient's is draining the urine well case discussed with on the case for further work-up will again repeat CBC CMP tomorrow we will adjust antibiotic dose Renal diet No need for acute dialysis at this time Monitor the blood pressure blood pressure is stable CBC CMP tomorrow morning plan discussed with patient and family moderate complexity of care medications reviewed
[2018-11-11] MEDS: Sodium Chloride 0.9% 1,000 ML IV SCH ×2 (01:50→04:15)
[2018-11-11] MEDS: oxyCODONE 5 mg Immediate Release Tab PO PRN (04:50)
[2018-11-11] MEDS: Pantoprazole 40 mg EC Tab PO SCH ×2 (05:36→17:08)
[2018-11-11] MEDS: metroNIDAZOLE IV 500 mg/100 ml 500 MG/100 ML BAG IVPB SCH ×3 (05:37→21:44)
[2018-11-11 07:59] LABS: BASO # 0.1 K/uL (0.0-0.2); EOS # 0.9 K/uL (0.0-0.7); EOS % 6.7 % (0.0-4.0); HEMOGLOBIN 10.6 g/dL (11.0-16.0); LYMPH # 0.9 K/uL (1.0-4.3); MEAN CELL VOLUME 89.9 fL (81.0-99.0); MEAN CORPUSCULAR HEMOGLOBIN 30.2 pg (27.0-31.0); MEAN CORPUSCULAR HGB CONC 33.6 g/dL (33.0-37.0); MEAN PLATELET VOLUME 10.7 fL (7.2-11.7); MONO % 7.9 % (0.0-10.0); NEUT # 10.2 K/uL (1.8-7.0); NEUT % 77.4 % (50.0-75.0); PLATELET COUNT 114 K/uL (130-400); RBC 3.51 Mil/uL (3.80-5.20); RED CELL DISTRIBUTION WIDTH 14.3 % (11.5-14.5); WHITE BLOOD COUNT 13.2 K/uL (4.8-10.8)
[2018-11-11] MEDS: (Novolin R) Insulin Human Regular 100 units/ml vial SC SCH ×4 (08:04→21:45)
--- NOTE | 2018-11-11 08:10 | PN ---
DATE: 11/10/2018 LOCATION: 369, bed A. SUBJECTIVE: This is an 88-year-old female, seen and examined in rounds without significant reported clinical changes or reported active GI bleeding, no reported chest pain, palpitation or increase of shortness of breath. No chills or fever, but intermittent period of abdominal pain as well as suprapubic pain with mild nausea and dyspepsia. The entire chart is reviewed including but not limited to the most recent lab results and today's blood glucose level of 171. Rest of the lab results still pending. However, the patient has persistently elevated white blood cells with low hemoglobin and hematocrit as well as thrombocytopenia by recent history with low CO2 content indicative of metabolic acidosis with elevated BUN and creatinine. PHYSICAL EXAMINATION: GENERAL: An 88-year-old female. VITAL SIGNS: Afebrile with pulse of 92, respiratory rate 20 to 22, blood pressure of 150/76. HEENT: Showed pale, dry oral mucous membrane. Nonicteric sclerae. LUNGS: Few scattered crepitation. Decreased air entry at bases. HEART: Positive S1 and S2 with increased rate. ABDOMEN: Soft with mild generalized tenderness. No mass or organomegaly. No rebound tenderness or guarding. EXTREMITIES: Without significant clubbing, cyanosis or edema. NEUROLOGIC: No reported new neurological deficits, sensory or motor. No reported new focal deficits. IMPRESSION: 1. Recent history of gastrointestinal bleeding with gastritis and hiatus hernia, none now. 2. Anemia, most likely secondary to above. 3. Prerenal azotemia with subsequent renal insufficiency and dehydration. 4. Known history of but not limited to hyperlipidemia, hypertension, diabetes mellitus, severe anxiety syndrome as well as coronary artery disease. 5. Known history of osteoporosis with osteoarthritis as per records. SUGGESTIONS: 1. Continue current management. 2. The patient will need colonoscopy after adequate preparation due to her hypochromic microcytic anemia. 3. Further recommendation to follow. Mami Graham MD
[2018-11-11 08:16] LABS: BLOOD UREA NITROGEN 19 mg/dL (7-17); CALCIUM 8.9 mg/dl (8.6-10.4); GFR NON-AFRICAN AMERICAN > 60
[2018-11-11] MEDS: Multivitamin Vitamin B Complex (Nephro-Vite) Tab PO SCH (08:23)
[2018-11-11] MEDS: Sucralfate 1 gm/10 ml Oral Susp UD PO SCH ×4 (09:26→20:59)
[2018-11-11] MEDS ORDERED: Potassium Chloride 20 mEq ER Tab PO SCH (10:30)
[2018-11-11 10:35] LABS: METAMYELOCYTE 1 % (0-0); TOTAL CELLS COUNTED 100
[2018-11-11 10:38] LABS: BANDS 3 % (0-2); BASOPHIL 1 % (0-2); EOSINOPHIL 6 % (0-4); LYMPHOCYTE 7 % (20-40); MONOCYTE 7 % (0-10); NEUTROPHIL 75 % (50-75); PLATELET ESTIMATE SLIGHTLY DECREASED (NORMAL)
--- NOTE | 2018-11-11 12:25 | CP.PCM.PN ---
Subjective - Date & Time of Evaluation Date of Evaluation: 11/11/18 Time of Evaluation: 12:23 - Subjective Subjective: Nephrology Follow up Note 88F w/ hx of HTN, HL, DM who presented to ER w/ hematemesis. She was admitted to ICU. She was seen by GI and underwent transfusion and EGD. After stabalization she was admitted to floors where her cr has been steadily climbing over the last several days. She received one dose of IV toradol. Otherwise no significant hypotensive events noted. She states she has not been able to void much. ros: a full detailed ROS is negative except as in my hpi PMHx: Anxiety, Arthritis, CAD, Cardia Arrhythmia, Diabetes, HTN, Hypercholesterolemia, Osteoporosis PSHx: denies Family hx: denies any hx of GI related malignancies Social hx: denies nay smoking, illicit drug use, or alcohol use meds as below all as below Sub: pt feels better. denies CP/SOB/nausea/vomitting. UOP ~ 3 L after espino insertion by urologist. 6 L over last 24 hrs pe: vss gen: nad sclera: anicteric op: clear neck :Supple cv: +s1+s2 no rub lungs: cta b/l abd: Soft nt nd bladder not palpable. has espino ext: no edema neuro: A+ox3 no focal defecit psych: nml affect skin no rash labs and imaging reviewed renal w/ bladder 800 cc and mild fullness in kidney imp: ARF/obstructive uropathy/ Anemia/ GIB /acidosis /DM/HTN plan: excellent improvement in renal function since, obstruction is relieved management of urine retention/bladder dysfunction per Urology. continue with espino catheter no acute need for dialysis at present bp high, resume coreg will monitor acidosis and start supplement if no improvement soon transfuse as needed per primary team. added iron and MVI GI following. pt on PPI added KCL 40 meq Dose meds/antibiotics for GFR >60 Glycemic control Further work up/management as per primary team Thanks for allowing me to participate in care of your patient. Will follow patient with you. Please call if any Qs. had d/w team and family bedside Dr Tex Larson Office: [phone] Objective - Vital Signs/Intake and Output Vital Signs (last 24 hours): Temp Pulse Resp BP Pulse Ox 98.2 F 97 H 20 156/79 H 98 11/10/18 23:24 11/10/18 23:24 11/10/18 23:24 11/10/18 23:24 11/10/18 23:24 Intake and Output: 11/11/18 11/11/18 06:59 18:59 Intake Total 1780 Output Total 2600 Balance -820 - Medications Medications: Current Medications Acetaminophen (Tylenol 325mg Tab) 650 mg PO Q6 PRN PRN Reason: Pain, moderate (4-7) Last Admin: 11/09/18 10:38 Dose: 650 mg Carvedilol (Coreg) 6.25 mg PO BID [facility] Ferrous Gluconate (Fergon) 324 mg PO TID [facility] Last Admin: 11/11/18 09:26 Dose: 324 mg Metronidazole (Flagyl) 500 mg in 100 mls @ 100 mls/hr IVPB Q8H [facility]; Protocol Last Admin: 11/11/18 05:37 Dose: 100 mls/hr Sodium Chloride (Sodium Chloride 0.9%) 1,000 mls @ 80 mls/hr IV .[id number] [facility] Last Admin: 11/11/18 04:15 Dose: Not Given Insulin Human Regular (Novolin R) 0 unit SC ACHS [facility]; Protocol Last Admin: 11/11/18 12:15 Dose: 6 u Midazolam HCl (Versed Inj) 2 mg IVP ONCE PRN PRN Reason: Agitation/Restlessness Oxycodone HCl (Oxycodone Immediate Release Tab) 5 mg PO Q6 PRN PRN Reason: PAIN, SEVERE 8-10 Last Admin: 11/11/18 04:50 Dose: 5 mg Pantoprazole Sodium (Protonix Ec Tab) 40 mg PO Q12H [facility] Last Admin: 11/11/18 05:36 Dose: 40 mg Sucralfate (Carafate Oral Susp) 1 gm PO QID [facility] Last Admin: 11/11/18 09:26 Dose: 1 gm Trolamine Salicylate (Aspercreme) 0 gm TOP TID PRN PRN Reason: Pain, Mild (1-3) Last Admin: 11/10/18 21:21 Dose: 85 gm Vitamin B Complex/Vit C/Folic Acid (Nephro-Zari) 1 tab PO 0800 [facility] Last Admin: 11/11/18 08:23 Dose: 1 tab - Labs Labs: 11/11/18 07:51 11/11/18 07:52 PT 13.7 SECONDS (9.7-12.2) H 11/04/18 12:20 INR 1.3 11/04/18 12:20
[2018-11-11] MEDS: Trolamine Salicylate 10% Cream (85 gm) TOP PRN ×2 (13:56→20:58)
[2018-11-11] MEDS ORDERED: Potassium Chloride 20 mEq ER Tab PO STA (18:24)
--- NOTE | 2018-11-11 18:47 | CP.PCM.PN ---
Subjective - Date & Time of Evaluation Date of Evaluation: 11/11/18 Time of Evaluation: 10:36 - Subjective Subjective: patient examined today no nausea no vomiting no dizziness no fever no shortness of breath no diarrhea Objective - Vital Signs/Intake and Output Vital Signs (last 24 hours): Temp Pulse Resp BP Pulse Ox 97.1 F L 91 H 20 145/78 95 11/11/18 16:36 11/11/18 16:36 11/11/18 16:36 11/11/18 16:36 11/11/18 16:36 Intake and Output: 11/11/18 11/11/18 06:59 18:59 Intake Total 1780 Output Total 2600 Balance -820 - Medications Medications: Current Medications Acetaminophen (Tylenol 325mg Tab) 650 mg PO Q6 PRN PRN Reason: Pain, moderate (4-7) Last Admin: 11/09/18 10:38 Dose: 650 mg Carvedilol (Coreg) 6.25 mg PO BID [facility] Last Admin: 11/11/18 17:18 Dose: 6.25 mg Ferrous Gluconate (Fergon) 324 mg PO TID [facility] Last Admin: 11/11/18 17:08 Dose: 324 mg Metronidazole (Flagyl) 500 mg in 100 mls @ 100 mls/hr IVPB Q8H [facility]; Protocol Last Admin: 11/11/18 13:51 Dose: 100 mls/hr Insulin Human Regular (Novolin R) 0 unit SC ACHS [facility]; Protocol Last Admin: 11/11/18 17:08 Dose: 4 u Oxycodone HCl (Oxycodone Immediate Release Tab) 5 mg PO Q6 PRN PRN Reason: PAIN, SEVERE 8-10 Last Admin: 11/11/18 04:50 Dose: 5 mg Pantoprazole Sodium (Protonix Ec Tab) 40 mg PO Q12H [facility] Last Admin: 11/11/18 17:08 Dose: 40 mg Sucralfate (Carafate Oral Susp) 1 gm PO QID [facility] Last Admin: 11/11/18 17:08 Dose: 1 gm Trolamine Salicylate (Aspercreme) 0 gm TOP TID PRN PRN Reason: Pain, Mild (1-3) Last Admin: 11/11/18 13:56 Dose: 85 gm Vitamin B Complex/Vit C/Folic Acid (Nephro-Kaitlin) 1 tab PO 0800 [facility] Last Admin: 11/11/18 08:23 Dose: 1 tab - Labs Labs: 11/11/18 07:51 11/11/18 07:52 PT 13.7 SECONDS (9.7-12.2) H 11/04/18 12:20 INR 1.3 11/04/18 12:20 - Constitutional Appears: Well - Head Exam Head Exam: ATRAUMATIC, NORMAL INSPECTION, NORMOCEPHALIC - Eye Exam Eye Exam: EOMI, Normal appearance, PERRL Pupil Exam: NORMAL ACCOMODATION, PERRL - ENT Exam ENT Exam: Mucous Membranes Moist, Normal Exam - Neck Exam Neck Exam: Full ROM, Normal Inspection. absent: Lymphadenopathy - Respiratory Exam Respiratory Exam: Decreased Breath Sounds - Cardiovascular Exam Cardiovascular Exam: REGULAR RHYTHM, +S1, +S2 - GI/Abdominal Exam GI & Abdominal Exam: Soft, Diminished Bowel Sounds - Rectal Exam Rectal Exam: Deferred - Neurological Exam Neurological Exam: Oriented x3 Assessment and Plan (1) GI bleed Status: Acute (2) Gastrointestinal hemorrhage Status: Acute (3) Abdominal pain Status: Acute (4) Abdominal pain Status: Acute (5) Arthritis Status: Acute (6) Arthritis Status: Acute (7) Atrial fibrillation Status: Acute (8) Chest injury Status: Acute (9) Chest pain Status: Acute (10) Constipation Status: Acute (11) Contusion Status: Acute (12) Degenerative arthritis Status: Acute (13) Diarrhea Status: Acute (14) Gastritis Status: Acute (15) Grief at loss of child Status: Acute (16) Hematemesis Status: Acute (17) Hyperglycemia Status: Acute (18) Hypoglycemia Status: Acute (19) Hypoglycemic reaction to insulin Status: Acute (20) Hypothermia Status: Acute (21) Joint swelling Status: Acute (22) Leg pain, bilateral Status: Acute (23) Nausea Status: Acute (24) Rib fracture Status: Acute (25) Shoulder pain Status: Acute (26) Thoracic back pain Status: Acute (27) Vasovagal near syncope Status: Acute - Assessment and Plan (Free Text) Plan: medications reviewed aspercreme carafate oral susp coreg fergon flagyl nephro-kaitlin novolin R oxycodone IR tab protonix ec tab tylenol labs reviewed vitals reviewed plan discussed wit patient moderate complexity of care Status post Garg catheter status post KCl supplementation 40 Creatinine is 0.7 much better Sonogram revealed mild hydronephrosis Spoke to the family who is there at length Possible discharge planning tomorrow Medications reviewed Patient and family agreed for the discharge tomorrow if creatinine remains normal we will get per renal clearance tomorrow
[2018-11-12] MEDS: Pantoprazole 40 mg EC Tab PO SCH ×2 (05:28→18:14)
[2018-11-12] MEDS: metroNIDAZOLE IV 500 mg/100 ml 500 MG/100 ML BAG IVPB SCH ×2 (05:33→13:34)
[2018-11-12] MEDS: (Novolin R) Insulin Human Regular 100 units/ml vial SC SCH ×3 (08:27→16:30)
[2018-11-12] MEDS: Multivitamin Vitamin B Complex (Nephro-Vite) Tab PO SCH (08:27)
[2018-11-12 09:08] LABS: BLOOD UREA NITROGEN 9 mg/dL (7-17); CALCIUM 9.3 mg/dl (8.6-10.4); GFR NON-AFRICAN AMERICAN > 60
[2018-11-12] MEDS: Potassium & Sodium Phosphate PO SCH ×3 (09:50→18:14)
[2018-11-12] MEDS: Sucralfate 1 gm/10 ml Oral Susp UD PO SCH ×3 (09:50→18:09)
[2018-11-12] MEDS ORDERED: Potassium Chloride 20 mEq ER Tab PO SCH (10:00)
--- NOTE | 2018-11-12 10:35 | CP.PCM.DIS ---
Provider - Provider Date of Admission: 11/04/18 12:55 Attending physician: Nani Jin MD Primary care physician: mindy Consults: 11/04/18 11:16 Gastroenterology Consult Stat Comment: Consulting Provider: Mami Heaton Consulting Physician: Mami Heaton Reason for Consult: gi bleed 11/04/18 16:20 Nursing Referral for Wound Care Routine Comment: Physician Instructions: Reason For Exam: incontinence 11/08/18 19:07 Physician Consult Routine Comment: Consulting Provider: Tex Larson Consulting Physician: Tex Larson Reason for Consult: arf 11/09/18 14:20 Urology Consult Routine Comment: Consulting Provider: Maya Bailey Consulting Physician: Maya Bailey Reason for Consult: espino cath insertion Time Spent in preparation of Discharge (in minutes): 30 Diagnosis - Discharge Diagnosis (1) GI bleed Status: Acute (2) Gastrointestinal hemorrhage Status: Acute (3) Abdominal pain Status: Acute (4) Abdominal pain Status: Acute (5) Arthritis Status: Acute (6) Arthritis Status: Acute (7) Atrial fibrillation Status: Acute (8) Chest injury Status: Acute (9) Chest pain Status: Acute (10) Constipation Status: Acute (11) Contusion Status: Acute (12) Degenerative arthritis Status: Acute (13) Diarrhea Status: Acute (14) Gastritis Status: Acute (15) Grief at loss of child Status: Acute (16) Hematemesis Status: Acute (17) Hyperglycemia Status: Acute (18) Hypoglycemia Status: Acute (19) Hypoglycemic reaction to insulin Status: Acute (20) Hypothermia Status: Acute (21) Joint swelling Status: Acute (22) Leg pain, bilateral Status: Acute (23) Nausea Status: Acute (24) Rib fracture Status: Acute (25) Shoulder pain Status: Acute (26) Thoracic back pain Status: Acute (27) Vasovagal near syncope Status: Acute Hospital Course - Lab Results Lab Results: Micro Results 11/10/18 14:50 Urine,Kidney Urine Culture - Final Proteus Mirabilis 11/05/18 12:52 Blood Blood Culture - Final NO GROWTH AFTER 5 DAYS 11/05/18 12:52 Blood Gram Stain - Final TEST NOT PERFORMED 11/05/18 12:52 Blood Blood Culture - Final NO GROWTH AFTER 5 DAYS 11/05/18 12:52 Blood Gram Stain - Final TEST NOT PERFORMED 11/09/18 11:22 Urine Random Urine Culture - Final <10,000 CFU/ML. MULTIPLE SPECIES. PROBABLE CONTAMINATION. 11/06/18 16:04 Nose MRSA Culture - Final MRSA NOT DETECTED 11/04/18 17:27 Naris MRSA Culture (Admit) - Final MRSA NOT DETECTED Most Recent Lab Values WBC 13.2 K/uL (4.8-10.8) H 11/11/18 07:51 RBC 3.51 Mil/uL (3.80-5.20) L 11/11/18 07:51 Hgb 10.6 g/dL (11.0-16.0) L 11/11/18 07:51 Hct 31.6 % (34.0-47.0) L 11/11/18 07:51 MCV 89.9 fL (81.0-99.0) 11/11/18 07:51 MCH 30.2 pg (27.0-31.0) 11/11/18 07:51 MCHC 33.6 g/dL (33.0-37.0) 11/11/18 07:51 RDW 14.3 % (11.5-14.5) 11/11/18 07:51 Plt Count 114 K/uL (130-400) L 11/11/18 07:51 MPV 10.7 fL (7.2-11.7) 11/11/18 07:51 Neut % (Auto) 77.4 % (50.0-75.0) H 11/11/18 07:51 Lymph % (Auto) 7.0 % (20.0-40.0) L 11/11/18 07:51 Sumner % (Auto) 7.9 % (0.0-10.0) 11/11/18 07:51 Eos % (Auto) 6.7 % (0.0-4.0) H 11/11/18 07:51 Baso % (Auto) 1.0 % (0.0-2.0) 11/11/18 07:51 Neut # (Auto) 10.2 K/uL (1.8-7.0) H 11/11/18 07:51 Lymph # (Auto) 0.9 K/uL (1.0-4.3) L 11/11/18 07:51 Sumner # (Auto) 1.0 K/uL (0.0-0.8) H 11/11/18 07:51 Eos # (Auto) 0.9 K/uL (0.0-0.7) H 11/11/18 07:51 Baso # (Auto) 0.1 K/uL (0.0-0.2) 11/11/18 07:51 Neutrophils % (Manual) 75 % (50-75) 11/11/18 07:51 Band Neutrophils % 3 % (0-2) H 11/11/18 07:51 Lymphocytes % (Manual) 7 % (20-40) L 11/11/18 07:51 Monocytes % (Manual) 7 % (0-10) 11/11/18 07:51 Eosinophils % (Manual) 6 % (0-4) H 11/11/18 07:51 Basophils % (Manual) 1 % (0-2) 11/11/18 07:51 Metamyelocytes % 1 % (0-0) H 11/11/18 07:51 Toxic Granulation Present 11/09/18 07:41 Platelet Estimate Slightly decreased (NORMAL) L 11/11/18 07:51 Large Platelets Present 11/09/18 07:41 RBC Morphology Normal 11/11/18 07:51 Polychromasia Slight 11/09/18 07:41 Hypochromasia (manual) Slight 11/09/18 07:41 Poikilocytosis (manual Slight 11/04/18 10:57 Anisocytosis (manual) Slight 11/09/18 07:41 Ovalocytes Slight 11/07/18 06:22 Makenna Cells Slight 11/10/18 07:07 PT 13.7 SECONDS (9.7-12.2) H 11/04/18 12:20 INR 1.3 11/04/18 12:20 Puncture Site R rad 11/05/18 05:00 pCO2 35 mm/Hg (35-45) 11/05/18 05:00 pO2 158 mm/Hg (80-100) H 11/05/18 05:00 HCO3 23.9 mmol/L (21-28) 11/05/18 05:00 ABG pH 7.42 (7.35-7.45) 11/05/18 05:00 ABG Total CO2 23.8 mmol/L (22-28) 11/05/18 05:00 ABG O2 Saturation 99.5 % (95-98) H 11/05/18 05:00 ABG Base Excess -1.3 mmol/L (-2.0-3.0) 11/05/18 05:00 ABG Hemoglobin 12.1 g/dL (11.7-17.4) 11/05/18 05:00 ABG Carboxyhemoglobin 1.4 % (0.5-1.5) 11/05/18 05:00 POC ABG HHb (Measured) 0.5 % (0.0-5.0) 11/05/18 05:00 ABG Methemoglobin 1.6 % (0.0-3.0) 11/05/18 05:00 Tyrell Test Pos 11/05/18 05:00 A-a O2 Difference 155.0 mm/Hg 11/05/18 05:00 Respiratory Index 1.0 11/05/18 05:00 Hgb O2 Saturation 96.5 % (95.0-98.0) 11/05/18 05:00 Vent Mode Prvc 11/05/18 05:00 Mechanical Rate 14 11/05/18 05:00 FiO2 50.0 % 11/05/18 05:00 Tidal Volume 450 11/05/18 05:00 PEEP 5 11/05/18 05:00 Sodium 139 mmol/L (132-148) 11/12/18 08:39 Potassium 3.5 mmol/L (3.6-5.2) L 11/12/18 08:39 Chloride 105 mmol/L (98-107) 11/12/18 08:39 Carbon Dioxide 22 mmol/L (22-30) 11/12/18 08:39 Anion Gap 16 (10-20) 11/12/18 08:39 BUN 9 mg/dL (7-17) 11/12/18 08:39 Creatinine 0.5 mg/dL (0.7-1.2) L 11/12/18 08:39 Est GFR ( Amer) > 60 11/12/18 08:39 Est GFR (Non-Af Amer) > 60 11/12/18 08:39 POC Glucose (mg/dL) 156 mg/dL (65-110) H 11/12/18 07:03 Random Glucose 179 mg/dL (65-105) H 11/12/18 08:39 Calcium 9.3 mg/dl (8.6-10.4) 11/12/18 08:39 Phosphorus 1.7 mg/dL (2.5-4.5) L 11/12/18 08:39 Magnesium 1.7 mg/dL (1.6-2.3) 11/12/18 08:39 Total Bilirubin 0.8 mg/dL (0.2-1.3) 11/09/18 07:41 AST 16 U/L (14-36) 11/09/18 07:41 ALT 20 U/L (9-52) 11/09/18 07:41 Alkaline Phosphatase 81 U/L (38-126) 11/09/18 07:41 Troponin I < 0.0120 ng/mL (0.00-0.120) 11/04/18 10:57 NT-Pro-B Natriuret Pep 45.0 pg/mL (0-900) 11/04/18 10:57 Total Protein 6.1 g/dL (6.3-8.3) L 11/09/18 07:41 Albumin 3.3 g/dL (3.5-5.0) L 11/09/18 07:41 Globulin 2.8 gm/dL (2.2-3.9) 11/09/18 07:41 Albumin/Globulin Ratio 1.2 (1.0-2.1) 11/09/18 07:41 Lipase 252 U/L (23-300) 11/04/18 10:57 Urine Color Yellow (YELLOW) 11/10/18 14:50 Urine Clarity Hazy (Clear) 11/10/18 14:50 Urine pH 5.0 (5.0-8.0) 11/10/18 14:50 Ur Specific Campbell 1.015 (1.003-1.030) 11/10/18 14:50 Urine Protein 2+ mg/dL (NEGATIVE) H 11/10/18 14:50 Urine Glucose (UA) 1+ mg/dL (Normal) 11/10/18 14:50 Urine Ketones Negative mg/dL (NEGATIVE) 11/10/18 14:50 Urine Blood 3+ (NEGATIVE) H 11/10/18 14:50 Urine Nitrate Negative (NEGATIVE) 11/10/18 14:50 Urine Bilirubin Negative (NEGATIVE) 11/10/18 14:50 Urine Urobilinogen Normal mg/dL (0.2-1.0) 11/10/18 14:50 Ur Leukocyte Esterase 3+ Jorge/uL (Negative) H 11/10/18 14:50 Urine WBC (Auto) 149 /hpf (0-5) H 11/10/18 14:50 Urine RBC (Auto) 74 /hpf (0-3) H 11/10/18 14:50 Ur Squamous Epith Cells 1 /hpf (0-5) 11/08/18 21:58 Urine Bacteria Rare (<OCC) 11/10/18 14:50 Ur Random Sodium 46 mmol/L 11/08/18 21:11 Stool Occult Blood Negative (NEGATIVE) 11/04/18 11:11 Blood Type O POSITIVE 11/04/18 10:59 Antibody Screen Negative 11/04/18 10:59 - Hospital Course Hospital Course: Discharge planning patient's urinary culture final blood culture final blood culture final urine culture negative with contaminations The hemoglobin 10.6 which was 9.6 yesterday WBC is a little high at 13 INR 1.3 Phosphorus 1.7 Magnesium 1.7 Creatinine is 0.5 which was 0.7 yesterday potassium is 3.5 Supplemented potassium today Sodium is 139 today Patient is much better Family is bedside discussed with the family extensively about the discharge patient came in with severe anemia eventually patient was seen by GI doctor given multiple medications given Protonix seen by GI doctor underwent endoscopy after a severe GI bleeding patient was intubated and then patient was extubated following that endoscopy revealed gastritis gastric ulcers diffuse esophagitis biopsy revealed a negative for H. pylori duodenal mucosa with preserved villous architecture negative for significant intraepithelial lymphocytosis biopsies negative for malignancy report conveyed to the family patient had a gastritis with a large blood clot on the endoscope PAS was sent as a foreign body which turned out to be a blood clot in the reports patient was eventually extubated after the extubation patient found to have a urinary retention with a creatinine bump up to 4.2 and 6.7 after Espino's catheter patient drained well good amount of urine creatinine came down to normal effect immediately patient denies any other pain renal ultrasound revealed echogenic kidneys with mild bilateral hydronephrosis we will do the work-up as an outpatients will remove the catheter patient been told we will discharge the patient's for further work-up as an outpatient's family understands discharge planning Follow-up with Dr. Luke Sucralfate Coreg Lactulose Ferrous sulfate Will DC metronidazole Status post potassium chloride Status post phosphorus We will stop the Percocet Discharge planning Discharge Exam - Head Exam Head Exam: ATRAUMATIC, NORMAL INSPECTION, NORMOCEPHALIC - Eye Exam Eye Exam: EOMI, Normal appearance, PERRL Pupil Exam: NORMAL ACCOMODATION, PERRL - ENT Exam ENT Exam: Normal Exam - Neck Exam Neck exam: Full Rom - Respiratory Exam Respiratory Exam: Decreased Breath Sounds - Cardiovascular Exam Cardiovascular Exam: REGULAR RHYTHM, +S1, +S2 - GI/Abdominal Exam GI & Abdominal Exam: Diminished Bowel Sounds, Soft - Rectal Exam Rectal Exam: Deferred - Neurological Exam Neurological exam: Oriented x3 Discharge Plan - Follow Up Plan Condition: GUARDED Disposition: HOME/ ROUTINE Instructions: Acute Abdominal Pain (DC), Acute Abdominal Pain (GEN), Gastrointestinal Bleeding (DC), Gastrointestinal Bleeding (GEN)
[2018-11-12] MEDS ORDERED: Potassium Chloride 10 mEq ER Tab PO SCH (10:45)
--- NOTE | 2018-11-12 11:11 | CP.PCM.PN ---
Subjective - Date & Time of Evaluation Date of Evaluation: 11/12/18 Time of Evaluation: 11:11 - Subjective Subjective: Nephrology Follow up Note 88F w/ hx of HTN, HL, DM who presented to ER w/ hematemesis. She was admitted to ICU. She was seen by GI and underwent transfusion and EGD. After stabalization she was admitted to floors where her cr has been steadily climbing over the last several days. She received one dose of IV toradol. Otherwise no significant hypotensive events noted. She states she has not been able to void much. ros: a full detailed ROS is negative except as in my hpi PMHx: Anxiety, Arthritis, CAD, Cardia Arrhythmia, Diabetes, HTN, Hypercholesterolemia, Osteoporosis PSHx: denies Family hx: denies any hx of GI related malignancies Social hx: denies nay smoking, illicit drug use, or alcohol use meds as below all as below Sub: pt feels better. denies CP/SOB/nausea/vomitting. UOP ~ 3 L after espino insertion by urologist. feels constipated pe: vss gen: nad sclera: anicteric op: clear neck :Supple cv: +s1+s2 no rub lungs: cta b/l abd: Soft nt nd bladder not palpable. has espino ext: no edema neuro: A+ox3 no focal defecit psych: nml affect skin no rash labs and imaging reviewed renal w/ bladder 800 cc and mild fullness in kidney imp: ARF/obstructive uropathy/ Anemia/ GIB /acidosis /DM/HTN hypokalemia/hypophos plan: excellent improvement in renal function since, obstruction is relieved management of urine retention/bladder dysfunction per Urology. continue with espino catheter no acute need for dialysis at present bp high, resume coreg will monitor acidosis and start supplement if no improvement soon transfuse as needed per primary team. added iron and MVI GI following. pt on PPI added KCL 40 meq and neutphos Dose meds/antibiotics for GFR >60 Glycemic control Further work up/management as per primary team Thanks for allowing me to participate in care of your patient. Will follow patient with you. Please call if any Qs. had d/w team and family bedside Dr Tex Larson Office: [phone] Objective - Vital Signs/Intake and Output Vital Signs (last 24 hours): Temp Pulse Resp BP Pulse Ox 97.1 F L 85 20 110/68 97 11/12/18 07:00 11/12/18 07:00 11/12/18 07:00 11/12/18 07:00 11/12/18 07:00 Intake and Output: 11/12/18 11/12/18 06:59 18:59 Intake Total 300 Output Total 1200 600 Balance -1200 -300 - Medications Medications: Current Medications Acetaminophen (Tylenol 325mg Tab) 650 mg PO Q6 PRN PRN Reason: Pain, moderate (4-7) Last Admin: 11/09/18 10:38 Dose: 650 mg Carvedilol (Coreg) 6.25 mg PO BID [facility] Last Admin: 11/12/18 09:51 Dose: 6.25 mg Ferrous Gluconate (Fergon) 324 mg PO TID [facility] Last Admin: 11/12/18 09:50 Dose: 324 mg Metronidazole (Flagyl) 500 mg in 100 mls @ 100 mls/hr IVPB Q8H [facility]; Protocol Last Admin: 11/12/18 05:33 Dose: 100 mls/hr Insulin Human Regular (Novolin R) 0 unit SC ACHS [facility]; Protocol Last Admin: 11/12/18 08:27 Dose: 2 u Oxycodone HCl (Oxycodone Immediate Release Tab) 5 mg PO Q6 PRN PRN Reason: PAIN, SEVERE 8-10 Last Admin: 11/11/18 04:50 Dose: 5 mg Pantoprazole Sodium (Protonix Ec Tab) 40 mg PO Q12H [facility] Last Admin: 11/12/18 05:28 Dose: 40 mg Potassium Chloride (Klor-Con 10) 10 meq PO BRK [facility] Potassium Phos/Sodium Phos (Neutra-Phos) 1 pkt PO TID [facility] Stop: 11/12/18 18:01 Last Admin: 11/12/18 09:50 Dose: 1 pkt Sucralfate (Carafate Oral Susp) 1 gm PO QID [facility] Last Admin: 11/12/18 09:50 Dose: 1 gm Trolamine Salicylate (Aspercreme) 0 gm TOP TID PRN PRN Reason: Pain, Mild (1-3) Last Admin: 11/11/18 20:58 Dose: 85 gm Vitamin B Complex/Vit C/Folic Acid (Nephro-Zari) 1 tab PO 0800 [facility] Last Admin: 11/12/18 08:27 Dose: 1 tab - Labs Labs: 11/11/18 07:51 11/12/18 08:39 PT 13.7 SECONDS (9.7-12.2) H 11/04/18 12:20 INR 1.3 11/04/18 12:20
[2018-11-12] MEDS: Trolamine Salicylate 10% Cream (85 gm) TOP PRN (13:34)
[2018-11-12] MEDS ORDERED: Potassium Chloride 20 mEq ER Tab PO ONE (15:30)
[2018-11-12] MEDS ORDERED: Pneumococcal 23-Valent Vaccine IM ONE (16:15)
[2018-11-12] MEDS: oxyCODONE 5 mg Immediate Release Tab PO PRN (17:00)
[2018-11-12 17:52] VITALS: BP 148/78; PULSE 87; TEMP 97; O2SAT 96
--- NOTE | 2018-11-12 18:54 | PN ---
DATE: 11/12/2018 LOCATION: 369, bed A. SUBJECTIVE: This is an 88-year-old female seen and examined in rounds today without reported evidence of active GI bleeding, appears to be awake, alert, oriented without chest pain or palpitation. No reported chills or fever. The entire chart is reviewed including but not limited to the most recent lab results with today's potassium 3.5, creatinine 0.5, blood glucose level 270 with low phosphorus of 1.7 with recently reported leukocytosis and low hemoglobin and hematocrit as well as thrombocytopenia. PHYSICAL EXAMINATION: GENERAL: An 88-year-old female awake, alert, oriented. VITAL SIGNS: Afebrile with pulse of 82, respiratory rate 20-22, blood pressure of 120/70. HEENT: Showed pale, dry oral mucous membrane. Nonicteric sclerae. LUNGS: Few scattered crepitation. Decreased air entry at bases. HEART: Positive S1 and S2. ABDOMEN: Soft with mild generalized tenderness. No mass or organomegaly. No rebound tenderness or guarding. EXTREMITIES: Without significant clubbing, cyanosis, but mild lower edematous changes. IMPRESSION: 1. Recent history of upper gastrointestinal tract bleeding, subsided. 2. Re-exacerbation of peptic ulcer disease. 3. Anemia secondary to above. 4. Prerenal azotemia, improving gradually. 5. Known history of hypertension, hyperlipidemia, poorly controlled diabetes mellitus with severe anxiety syndrome. 6. Known history of coronary artery disease, osteoporosis with history of arthritis as per the record. SUGGESTIONS: 1. Continue current management. 2. If there is subsequent drop of hemoglobin and hematocrit, then colonoscopy to be kept in mind. Otherwise close observation to follow. Mami Graham MD
== END 2018-11-12 19:23 | DRG 378 ==
LOC: C.3T 10:03 → C.ER 10:03 → C.ENDO 12:41 → C.9I 12:55 → C.3T 11-06 14:03
PROVIDERS: ADMIT Internal Medicine Nephrology; ATTEND Internal Medicine Nephrology
PROC: 3E0G8GC Introduction of Other Therapeutic Substance into Upper GI, Via Natural or Artificial Opening Endoscopic (ICD-10-PCS; 2018-11-04)
PROC: 0DC98ZZ Extirpation of Matter from Duodenum, Via Natural or Artificial Opening Endoscopic (ICD-10-PCS; 2018-11-04)
PROC: 30233N1 Transfusion of Nonautologous Red Blood Cells into Peripheral Vein, Percutaneous Approach (ICD-10-PCS; 2018-11-04)
PROC: 5A1945Z Respiratory Ventilation, 24-96 Consecutive Hours (ICD-10-PCS; 2018-11-04)
PROC: 0W3P8ZZ Control Bleeding in Gastrointestinal Tract, Via Natural or Artificial Opening Endoscopic (ICD-10-PCS; principal; 2018-11-04 12:47)
PROC: 0DB98ZX Excision of Duodenum, Via Natural or Artificial Opening Endoscopic, Diagnostic (ICD-10-PCS; 2018-11-05)
PROC: 0DB68ZX Excision of Stomach, Via Natural or Artificial Opening Endoscopic, Diagnostic (ICD-10-PCS; 2018-11-05)
DX: K26.4 Chronic or unspecified duodenal ulcer with hemorrhage (principal); E87.2 Acidosis; N17.9 Acute kidney failure, unspecified; K29.71 Gastritis, unspecified, with bleeding; J44.9 Chronic obstructive pulmonary disease, unspecified; I10 Essential (primary) hypertension; N13.9 Obstructive and reflux uropathy, unspecified; K25.4 Chronic or unspecified gastric ulcer with hemorrhage; E11.65 Type 2 diabetes mellitus with hyperglycemia; D69.6 Thrombocytopenia, unspecified; E11.649 Type 2 diabetes mellitus with hypoglycemia without coma; E78.00 Pure hypercholesterolemia, unspecified; D50.0 Iron deficiency anemia secondary to blood loss (chronic); M17.10 Unilateral primary osteoarthritis, unspecified knee; I25.10 Atherosclerotic heart disease of native coronary artery without angina pectoris; E86.0 Dehydration; E87.6 Hypokalemia; I48.91 Unspecified atrial fibrillation; M81.0 Age-related osteoporosis without current pathological fracture; R55 Syncope and collapse; F41.9 Anxiety disorder, unspecified; K44.9 Diaphragmatic hernia without obstruction or gangrene; D72.829 Elevated white blood cell count, unspecified; Z79.4 Long term (current) use of insulin; F43.20 Adjustment disorder, unspecified

== ENCOUNTER 2018-12-03 02:22 | Emergency (ER) | payer MEDICARE ==
[2018-12-03 02:22] VITALS: BMI 25.8
[2018-12-03 02:52] VITALS: O2SAT 98
--- NOTE | 2018-12-03 04:36 | C.PDOC ---
History Of Present Illness 88 year old female who currently gets physical therapy for her legs due to having a hard time walking, had a session yesterday, felt fine afterwards, but laid down tonight around 9pm and began having pain that radiates down her left lateral upper thigh down her leg to her foot. Denies injury/trauma, weakness, or numbness. Time Seen by Provider: 12/03/18 02:44 Chief Complaint (Nursing): Hip Pain History Per: Patient History/Exam Limitations: no limitations Onset/Duration Of Symptoms: Hrs Current Symptoms Are (Timing): Still Present Recent travel outside of the [place]: No Past Medical History Reviewed: Historical Data, Nursing Documentation, Vital Signs Vital Signs: Last Vital Signs Temp 99 F 12/03/18 02:51 Pulse 87 12/03/18 02:51 Resp 18 12/03/18 02:51 BP 137/60 12/03/18 02:51 Pulse Ox 98 12/03/18 02:51 Primary Care Provider: Jeffery Jin - Medical History PMH: Anxiety, Arthritis, CAD, Cardia Arrhythmia, Diabetes, HTN, Hypercholesterolemia, Osteoporosis Denies: Chronic Kidney Disease Surgical History: - [facility] Procedures COLONOSCOPY (12/31/12) CONTROL BLEEDING IN GASTROINTESTINAL TRACT, ENDO (11/04/18) EXCISION OF DUODENUM, ENDO, DIAGN (11/04/18) EXCISION OF ESOPHAGUS, ENDO, DIAGN (01/10/17) EXCISION OF STOMACH, ENDO, DIAGN (11/04/18) EXCISION OF STOMACH, PYLORUS, ENDO, DIAGN (01/10/17) EXTIRPATION OF MATTER FROM DUODENUM, ENDO (11/04/18) INTRODUCTION OF OTHER THERAPEUTIC SUBSTANCE INTO UP GI, ENDO (11/04/18) LEFT HEART CARDIAC CATH (08/31/13) LT HEART ANGIOCARDIOGRAM (08/31/13) RESPIRATORY VENTILATION, 24-96 CONSECUTIVE HOURS (11/04/18) TRANSFUSE NONAUT RED BLOOD CELLS IN PERIPH VEIN, PERC (11/04/18) Family History: States: Unknown Family Hx - Social History Hx Tobacco Use: No Hx Alcohol Use: No Hx Substance Use: No - Immunization History Hx Tetanus Toxoid Vaccination: No Hx Influenza Vaccination: No Hx Pneumococcal Vaccination: No Review Of Systems Musculoskeletal: Positive for: Leg Pain. Negative for: Back Pain Skin: Negative for: Rash, Bruising Neurological: Negative for: Weakness, Numbness Physical Exam - Physical Exam Appears: Non-toxic, No Acute Distress Skin: Normal Color, Warm Head: Atraumatic, Normacephalic Eye(s): bilateral: Normal Inspection Gastrointestinal/Abdominal: Soft, No Tenderness Back: No Vertebral Tenderness, No Paraspinal Tenderness Extremity: Capillary Refill (<2 seconds), Other (Tenderness to palpation of left lateral upper thigh down the leg to the foot. No swelling, erythema, or deformity.) Pulses: Left Radial: Normal, Right Radial: Normal, Left Dorsalis Pedis: Normal, Right Dorsalis Pedis: Normal Neurological/Psych: Oriented x3, Normal Speech, Normal Motor, Normal Sensation ED Course And Treatment O2 Sat by Pulse Oximetry: 98 (Room air) Pulse Ox Interpretation: Normal Medical Decision Making Medical Decision Making: Patient with sciatica brought on by physical therapy. Disposition Counseled Patient/Family Regarding: Diagnosis, Need For Followup, Rx Given - Disposition Disposition: HOME/ ROUTINE Disposition Time: 06:12 Condition: IMPROVED Prescriptions: traMADol [Ultram] 50 mg PO BID PRN #10 tab PRN Reason: Pain, Severe (8-10) Instructions: Sciatica (DC) Forms: Gen Discharge Inst Cameroonian, [facility] (Cameroonian) - Clinical Impression Clinical Impression: Sciatica of left side - PA / PROSTHETIC DENTIST / Resident Statement MD/DO has reviewed & agrees with the documentation as recorded. - Scribe Statement The provider has reviewed the documentation as recorded by the Scribe Ray Russell All medical record entries made by the Scribe were at my direction and personally dictated by me. I have reviewed the chart and agree that the record accurately reflects my personal performance of the history, physical exam, medical decision making, and the department course for this patient. I have also personally directed, reviewed, and agree with the discharge instructions and disposition.
[2018-12-03 06:20] VITALS: BP 139/65; PULSE 93; RESP 19; TEMP 98.2
== END 2018-12-03 07:18 | disposition home or self-care (01) ==
LOC: C.ER 02:22
DX: M54.32 Sciatica, left side (principal)